=== PATIENT | male | born 1975 | race Hispanic/Latino ===

== ENCOUNTER 2017-02-01 16:31 | Inpatient (IN) | payer MEDICAID, OTHER ==
--- NOTE | 2017-02-01 17:00 | C.PDOC ---
History Of Present Illness 42 year old male presents to the ED with complaints of new onset bilateral leg swelling for one week. Patient notes scrotal swelling for two days and worsening dyspnea on exertion for six months. Patient denies pertinent past medical history, use of chronic medications, chest pain, fever, scrotal pain, or UTI symptoms. Time Seen by Provider: 02/01/17 16:50 Chief Complaint (Nursing): Lower Extremity Problem/Injury History Per: Patient History/Exam Limitations: no limitations Onset/Duration Of Symptoms: Days (1 week of leg swelling and 2 days of scrotal swelling ), Sudden Onset, Persistent (6 months of worsening dyspnea with exertion ) Current Symptoms Are (Timing): Still Present Recent travel outside of the [place]: No Past Medical History Reviewed: Historical Data, Nursing Documentation, Vital Signs Vital Signs: Last Vital Signs Temp 98.0 F 02/01/17 16:36 Pulse 101 H 02/01/17 17:03 Resp 24 02/01/17 17:03 BP 159/120 H 02/01/17 17:03 Pulse Ox 98 02/01/17 18:50 Surgical History: Appendectomy Family History: States: Unknown Family Hx - Social History Hx Alcohol Use: Yes Hx Substance Use: No - Immunization History Hx Tetanus Toxoid Vaccination: Yes Hx Influenza Vaccination: No Hx Pneumococcal Vaccination: No Review Of Systems Constitutional: Negative for: Fever, Chills Cardiovascular: Negative for: Chest Pain, Palpitations Respiratory: Positive for: Other (dyspnea with exertion ). Negative for: Cough , Shortness of Breath Genitourinary: Positive for: Other (scrotal swelling ). Negative for: Dysuria, Hematuria, Scrotal Pain Musculoskeletal: Positive for: Other (bilateral leg swelling ) Physical Exam - Physical Exam Appears: Non-toxic, No Acute Distress Skin: Warm, Dry, No Rash, Other (no cellulitis) Head: Atraumatic Eye(s): bilateral: Normal Inspection, EOMI Oral Mucosa: Moist Neck: Supple Chest: Symmetrical, No Deformity Cardiovascular: Other (Patient is tachycardic 121 bpm) Respiratory: Normal Breath Sounds, No Accessory Muscle Use (no retractions ), No Rales, No Wheezing, Other (Speaking in full sentences, no tachypnea) Gastrointestinal/Abdominal: Soft, No Tenderness, No Distention, No Guarding, No Rebound Male Genital: No Testicular Tenderness, No Inguinal Tenderness, Other (diffuse scrotal edema, no tenderness ) Extremity: No Tenderness, No Calf Tenderness, Other (2+ pitting edema to mid- legs bilaterally) ED Course And Treatment - Laboratory Results Result Diagrams: 02/01/17 17:07 02/01/17 17:07 ECG: Interpreted By Me, Viewed By Me ECG Rhythm: Sinus Tachycardia (121 bpm ) O2 Sat by Pulse Oximetry: 98 (room air ) - Radiology CXR: Interpreted by Me CXR Interpretation: Yes: Cardiomegaly - CT Scan/US Testicular US Other Rad Studies (CT/US): Read By Radiologist, Radiology Report Reviewed CT/US Interpretation: IMPRESSION: Scrotal skin thickening. The testes and epididymides have a normal ultrasound appearance. Progress Note: EKG, UA, testicular US, and labs were ordered. Patient was given catapres and Lasix. ED OBSERVATION Date of observation admission: 02/01/17 Time of observation admission: 17:00 - Observation admission statement Patient is being placed in observation because:: EDEMA, SCROTAL SWELL, SOB - Goals of Observation Goals of observation are:: NEG ACUTE FINDINGS, NEG ACUTE CHF - Progress Note Progress Note: 02/01/17 18:50 PERSIST HTN. +UO S/P LASIX. PT AGREES W ADMISSION FOR RENAL INSUFF, CHF NEW ONSET. 02/01/17 18:54 D/W DR NAVA WILL ADMIT Disposition Counseled Patient/Family Regarding: Studies Performed, Diagnosis - Disposition Disposition: HOSPITALIZED Disposition Time: 18:54 Condition: SERIOUS - POA Present On Arrival: None - Clinical Impression Clinical Impression: New onset of congestive heart failure, Edema, Renal insufficiency, Uncontrolled hypertension - Scribe Statement The provider has reviewed the documentation as recorded by the Scribbarry Monroy All medical record entries made by the Jamshidibbarry were at my direction and personally dictated by me. I have reviewed the chart and agree that the record accurately reflects my personal performance of the history, physical exam, medical decision making, and the department course for this patient. I have also personally directed, reviewed, and agree with the discharge instructions and disposition. Decision To Admit - Pt Status Changed To: Hospital Disposition Of: Inpatient - Admit Certification Admit to Inpatient:: After my assessment, the patient will require hospitalization for at least two midnights. This is because of the severity of symptoms shown, intensity of services needed, and/or the medical risk in this patient being treated as an outpatient. - InPatient: Physician Admission Certification: I certify that this patient requires 2 or more midnights of care for the following reason:: SEE NOTE - . Bed Request Type: Telemetry Admitting Physician: Derick Nava Patient Diagnosis: New onset of congestive heart failure, Edema, Renal insufficiency, Uncontrolled hypertension
[2017-02-01 17:11] LABS: BASO # 0.1 K/uL (0.0-0.2); BASO % 0.9 % (0.0-2.0); EOS # 0.1 K/uL (0.0-0.7); EOS % 1.7 % (0.0-4.0); HEMATOCRIT 44.3 % (35.0-51.0); LYMPH # 1.1 K/uL (1.0-4.3); LYMPH % 12.6 % (20.0-40.0); MEAN CELL VOLUME 79.3 fL (80.0-94.0); MEAN CORPUSCULAR HEMOGLOBIN 25.8 pg (27.0-31.0); MEAN CORPUSCULAR HGB CONC 32.5 g/dL (33.0-37.0); MEAN PLATELET VOLUME 7.6 fL (7.2-11.7); MONO % 10.7 % (0.0-10.0); RED CELL DISTRIBUTION WIDTH 15.7 % (11.5-14.5)
--- NOTE | 2017-02-01 17:11 | RAD ---
HISTORY: SOB COMPARISON: None available. TECHNIQUE: Chest, one view. FINDINGS: Examination limited by habitus and hypoinflation. The patient's chin obscures evaluation of the lung apices, particularly the right lung apex. LUNGS: No focal consolidation. Please note that chest x-ray has limited sensitivity for the detection of pulmonary masses. PLEURA: No significant pleural effusion identified. No definite pneumothorax . CARDIOVASCULAR: Cardiomegaly. OSSEOUS STRUCTURES: No acute osseous abnormality identified. VISUALIZED UPPER ABDOMEN: Unremarkable. OTHER FINDINGS: None. IMPRESSION: Cardiomegaly.
[2017-02-01 17:21] LABS: POTASSIUM 3.1 mmol/L (3.6-5.2)
[2017-02-01 17:23] LABS: ALB/GLOB RATIO 1.2 (1.0-2.1); CALCIUM 9.2 mg/dl (8.6-10.4); TOTAL PROTEIN 7.1 g/dL (6.3-8.3)
[2017-02-01] MEDS ORDERED: Potassium Chloride 20 mEq/15 ml LIQ UD PO STA (17:25)
[2017-02-01] MEDS ORDERED: Potassium Chloride 20 mEq ER Tab PO ONE ×3 (17:33→20:29)
[2017-02-01 17:34] LABS: TROPONIN I 0.069 ng/mL (0.00-0.120)
--- NOTE | 2017-02-01 18:29 | US ---
EXAM: US Scrotum EXAM DATE/TIME: Exam ordered 02/01/2017 5:02 PM CLINICAL HISTORY: 42 years old, male; Signs and symptoms; Swelling, testicles or scrotum; Additional info: Swelling RO torsion TECHNIQUE: Real-time ultrasound of the scrotum with color Doppler and image documentation. COMPARISON: No relevant prior studies available. FINDINGS: Right testicle: The right testicle measures 4.9 x 3.1 x 3.4 cm. Normal blood flow to the right testicle color Doppler examination. No torsion. Left testicle: The left testicle measures 5 x 3.1 x 3.5 cm. Blood flow to the left testicle is normal. No torsion. Epididymides: The right epididymal head measures 1.8 x 0.9 x 1.8 cm. The left epididymal head measures 1.6 x 1 x 1.5 cm. Scrotum: Minimal fluid is noted in the left or right hemiscrotum respectively. There is skin thickening noted bilaterally. IMPRESSION: Scrotal skin thickening. The testes and epididymides have a normal ultrasound appearance..
[2017-02-01 19:15] LABS: URINE BILIRUBIN NEGATIVE (NEGATIVE); URINE BLOOD NEGATIVE (NEGATIVE); URINE COLOR Straw (YELLOW); URINE GLUCOSE (UA) NORMAL (Normal); URINE KETONE NEGATIVE (NEGATIVE); URINE LEUKOCYTE ESTERASE NEG Leu/uL (Negative); URINE UROBILINOGEN NORMAL mg/dL (0.2-1.0); WBC URINE 1 /hpf (0-5)
[2017-02-01 19:20] LABS: URINE PROTEIN 30 mg/dL (NEGATIVE)
--- NOTE | 2017-02-01 19:28 | CP.PCM.HP ---
<Yuli Carvajal - Last Filed: 02/01/17 21:05> History of Present Illness - History of Present Illness History of Present Illness: Medicine Note For Dr. Degroot CC: Bilateral leg swelling, scrotum swelling HPI: 42M with no significant PMHx presents to the ED with bilateral leg swelling x1 week and scrotal swelling x 4 days. Patient reports he started to feel SOB when ambulating about 1 month ago. It was harder for him to walk up stairs, and he noticed at night, he needs 2-3 pillows to sleep. He noticed about a week ago, his legs started to swell up. He tried to keep his legs elevated, which helped a little bit, but once he ambulated, the swelling increased. Patient noticed while showering 4 days ago, that his scrotum started to swell. Denied any pain, discharge, or blood coming from his penis. Patient also reported that he noticed over the past couple of months, an increase in urination and thirst. Denied fever, chills, headache, chest pain, abdominal pain , n/v/d/c, or urinary symptoms. PMHx: Denied PSHx: Appendectomy Meds: Denied All: NKDA SHx: Denied tobacco or illicit drug use, social alcohol drinking FHx: Unremarkable PMD: Denied, last saw one 3 years ago for a physical for work Present on Admission - Present on Admission Any Indicators Present on Admission: No Past Patient History - Past Social History Smoking Status: Heavy Smoker > 10 Cigarettes Daily - PSYCHIATRIC Hx Substance Use: No - SURGICAL HISTORY Hx Appendectomy: Yes - ANESTHESIA Hx Anesthesia: Yes Hx Anesthesia Reactions: No Meds Allergies/Adverse Reactions: Allergies Allergy/AdvReac Type Severity Reaction Status Date / Time No Known Allergies Allergy Verified 02/01/17 16:39 Physical Exam - Constitutional Appears: No Acute Distress - Head Exam Head Exam: NORMAL INSPECTION, NORMOCEPHALIC - Eye Exam Eye Exam: EOMI, Normal appearance, PERRL Pupil Exam: NORMAL ACCOMODATION - ENT Exam ENT Exam: Mucous Membranes Moist, Normal Exam - Neck Exam Additional comments: JVD - Respiratory Exam Respiratory Exam: Rales, NORMAL BREATHING PATTERN - Cardiovascular Exam Cardiovascular Exam: Tachycardia - GI/Abdominal Exam GI & Abdominal Exam: Normal Bowel Sounds, Soft. absent: Tenderness - Rectal Exam Rectal Exam: Deferred - Extremities Exam Extremities exam: Positive for: pedal edema, tenderness, pedal pulses present Additional comments: BL LE swelling +3 - Back Exam Back exam: NORMAL INSPECTION - Neurological Exam Neurological exam: Alert, Oriented x3 - Psychiatric Exam Psychiatric exam: Normal Affect, Normal Mood - Skin Skin Exam: Dry, Intact, Normal Color, Warm Results - Vital Signs Recent Vital Signs: Last Vital Signs Temp 98.0 F 02/01/17 16:36 Pulse 101 H 02/01/17 17:03 Resp 24 02/01/17 17:03 BP 159/120 H 02/01/17 17:03 Pulse Ox 98 02/01/17 18:55 - Labs Result Diagrams: 02/01/17 17:07 02/01/17 17:07 Labs: Laboratory Results - last 24 hr 02/01/17 19:10 Urine Color Straw Urine Clarity Clear Urine pH 7.0 Ur Specific [place] 1.005 Urine Protein 30 Urine Glucose (UA) Normal Urine Ketones Negative Urine Blood Negative Urine Nitrate Negative Urine Bilirubin Negative Urine Urobilinogen Normal Ur Leukocyte Esterase Neg Urine WBC (Auto) 1 Ur Squamous Epith Cells < 1 Assessment & Plan - Assessment and Plan (Free Text) Plan: New Onset CHF * Tachycardia, hypertensive * JVD, No S3 appreciated, Rales, BL LE edema +3 on exam * BNP:11,700 * Monitor daily weights, intake and outtake * Heart Healthy Diet - with 2g Na and fluid restriction * Cardiology consulted- Dr. Dewitt- help appreciated * Started Lasix 40mg IVP Q8H, lisinopril 10mg PO daily * F/U ECHO HTN * Lisinopril 10mg PO daily * F/U labs ordered Bilateral Lower Extremity Edema * Most likely 2/2 CHF * Venous dopplers to rule out DVT Renal Insufficiency * BUN/CRE: 25/1.9 * GFR: 39 * Continue to monitor Hypokalemia * Repleted * Continue to monitor Testicular Swelling * Testicular US:Scrotal skin thickening. The testes and epididymides have a normal ultrasound appearance. Prophylactic Measures * GI PPX: Pepcid 20mg PO daily * DVT PPX: SCDs c/i due to edema, Heparin [id number] * PT/OT DW Alena Jessica DO, PGY-1 <Jono Degroot - Last Filed: 02/02/17 06:33> Results - Vital Signs Recent Vital Signs: Last Vital Signs Temp 97.4 F L 02/02/17 05:05 Pulse 98 H 02/02/17 05:11 Resp 20 02/02/17 05:05 BP 171/131 H 02/02/17 05:11 Pulse Ox 98 02/02/17 05:05 - Labs Result Diagrams: 02/01/17 17:07 02/01/17 17:07 Labs: Laboratory Results - last 24 hr 02/01/17 02/01/17 19:10 22:36 Urine Color Straw Urine Clarity Clear Urine pH 7.0 Ur Specific [place] 1.005 Urine Protein 30 Urine Glucose (UA) Normal Urine Ketones Negative Urine Blood Negative Urine Nitrate Negative Urine Bilirubin Negative Urine Urobilinogen Normal Ur Leukocyte Esterase Neg Urine WBC (Auto) 1 Ur Squamous Epith Cells < 1 Urine Opiates Screen Negative Urine Methadone Screen Negative Ur Barbiturates Screen Negative Ur Phencyclidine Scrn Negative Ur Amphetamines Screen Negative U Benzodiazepines Scrn Negative U Oth Cocaine Metabols Negative U Cannabinoids Screen Negative Assessment & Plan - Date & Time Date: 02/02/17 (I have seen and examined the patient. I agree with the findings and plan of care as documented by Dr. Carvajal. Patient with acute CHF. New Onset. Lasix IV. Start Madhu. Consult to Cardio. ROMIx3 with EKG. Aspirin and Statin. Also with history of hypertension. Continue home meds. Start Madhu. For renal insufficiency, continue to monitor renal function. May worsen due to Lasix. Monitor for acute changes.) Time: 06:31 Attending/Attestation - Attestation I have personally seen and examined this patient.: Yes I have fully participated in the care of the patient.: Yes I have reviewed all pertinent clinical information: Yes
[2017-02-02 01:16] VITALS: RESP 20
[2017-02-02 09:02] LABS: BASO # 0.1 K/uL (0.0-0.2); BASO % 0.8 % (0.0-2.0); EOS # 0.2 K/uL (0.0-0.7); EOS % 2.8 % (0.0-4.0); HEMATOCRIT 42.4 % (35.0-51.0); LYMPH # 1.1 K/uL (1.0-4.3); LYMPH % 15.9 % (20.0-40.0); MEAN CELL VOLUME 79.7 fL (80.0-94.0); MEAN CORPUSCULAR HEMOGLOBIN 25.5 pg (27.0-31.0); MEAN PLATELET VOLUME 7.9 fL (7.2-11.7); MONO # 0.6 K/uL (0.0-0.8); MONO % 8.7 % (0.0-10.0); RED CELL DISTRIBUTION WIDTH 15.6 % (11.5-14.5); WHITE BLOOD COUNT 7.2 K/uL (4.8-10.8)
[2017-02-02 09:41] LABS: ALB/GLOB RATIO 1.3 (1.0-2.1); ALKALINE PHOSPHATASE 99 U/L (38-126); ALT/SGPT 31 U/L (21-72); AST/SGOT 37 U/L (17-59); BLOOD UREA NITROGEN 19 mg/dL (9-20); CALCIUM 8.7 mg/dl (8.6-10.4); CARBON DIOXIDE 30 mmol/L (22-30); CHLORIDE 101 mmol/L (98-107); CHOLESTEROL 144 mg/dL (0-199); GFR AFRICAN-AMERICAN > 60; GLUCOSE,RANDOM 86 mg/dL (75-110); MAGNESIUM 1.7 mg/dL (1.6-2.3); PHOSPHOROUS 2.7 mg/dL (2.5-4.5); SODIUM 141 mmol/L (132-148)
[2017-02-02] MEDS ORDERED: Potassium Chloride 20 mEq ER Tab PO SCH ×2 (10:00)
[2017-02-02] MEDS ORDERED: Metoprolol Succinate 25 mg XL Tab PO SCH (10:00)
[2017-02-02] MEDS ORDERED: Potassium Chloride 20 mEq ER Tab PO ONE ×2 (10:45→11:00)
--- NOTE | 2017-02-02 10:45 | CP.PCM.PN ---
<Derick Nava M - Last Filed: 02/02/17 17:00> Objective - Vital Signs/Intake and Output Vital Signs (last 24 hours): Temp Pulse Resp BP Pulse Ox 98 F 87 20 149/112 H 97 02/02/17 08:20 02/02/17 16:00 02/02/17 08:20 02/02/17 12:07 02/02/17 08:20 Intake and Output: 02/02/17 02/02/17 06:59 18:59 Intake Total 120 Output Total 3150 Balance -3030 - Medications Medications: Current Medications Famotidine (Pepcid) 20 mg PO DAILY [facility] Last Admin: 02/02/17 11:01 Dose: 20 mg Furosemide (Lasix) 40 mg IVP BID [facility] Last Admin: 02/02/17 10:52 Dose: Not Given Heparin Sodium (Porcine) (Heparin) 5,000 units SC Q12 [facility] Last Admin: 02/02/17 11:01 Dose: 5,000 units Hydralazine HCl (Apresoline) 10 mg IVP Q6H PRN PRN Reason: Systolic Blood Pressure Lisinopril (Zestril) 20 mg PO DAILY [facility] Last Admin: 02/02/17 11:01 Dose: 20 mg Pneumococcal Polyvalent Vaccine (Pneumovax 23 Vaccine) 0.5 ml IM .ONCE ONE Stop: 02/04/17 14:01 - Labs Labs: 02/02/17 08:32 02/02/17 08:32 Attending/Attestation - Attestation I have personally seen and examined this patient.: Yes I have fully participated in the care of the patient.: Yes I have reviewed all pertinent clinical information, including history, physical exam and plan: Yes Notes (Text): 02/02/17 17:02 Patient was seen and examined at bedside with the resident Patient to denies any shortness of breath this time Continue diuresis Follow-up echocardiogram report Follow up cardiology recommendations Replace electrolytes and check again in the morning I discussed the plan of care with the resident and agree with the assessment plan documented. <Jarad Pimentel - Last Filed: 02/02/17 22:12> Subjective - Date & Time of Evaluation Date of Evaluation: 02/02/17 Time of Evaluation: 10:00 - Subjective Subjective: Dr. Nava, service: Patient seen and examined in room. He says he came to the hospital because he was having worsening shortness of breath and his legs and abdomen were swelling. He does not see a doctor regularly and is a daily smoker. He takes no medication at home either. Objective - Vital Signs/Intake and Output Vital Signs (last 24 hours): Temp Pulse Resp BP Pulse Ox 98 F 88 20 177/133 H 97 02/02/17 08:20 02/02/17 08:20 02/02/17 08:20 02/02/17 08:33 02/02/17 08:20 Intake and Output: 02/02/17 02/02/17 06:59 18:59 Intake Total 120 Output Total 3150 Balance -3030 - Medications Medications: Current Medications Famotidine (Pepcid) 20 mg PO DAILY [facility] Furosemide (Lasix) 40 mg IVP BID [facility] Heparin Sodium (Porcine) (Heparin) 5,000 units SC Q12 [facility] Last Admin: 02/01/17 22:28 Dose: 5,000 units Hydralazine HCl (Apresoline) 10 mg IVP ONCE ONE Stop: 02/02/17 10:46 Hydralazine HCl (Apresoline) 10 mg IVP Q6H PRN PRN Reason: Systolic Blood Pressure Lisinopril (Zestril) 20 mg PO DAILY [facility] Pneumococcal Polyvalent Vaccine (Pneumovax 23 Vaccine) 0.5 ml IM .ONCE ONE Stop: 02/04/17 14:01 Potassium Chloride (K-Dur 20 Meq Er Tab) 40 meq PO ONCE ONE Stop: 02/02/17 11:01 - Labs Labs: 02/02/17 08:32 02/02/17 08:32 - Constitutional Appears: Non-toxic, No Acute Distress - Eye Exam Eye Exam: Normal appearance, PERRL - ENT Exam ENT Exam: Mucous Membranes Moist - Respiratory Exam Respiratory Exam: Clear to Ausculation Bilateral. absent: Rhonchi, Wheezes - Cardiovascular Exam Cardiovascular Exam: REGULAR RHYTHM, RRR, +S1, +S2. absent: Gallop, Rubs - GI/Abdominal Exam GI & Abdominal Exam: Distended, Normal Bowel Sounds. absent: Guarding, Soft, Tenderness, Rebound - Extremities Exam Extremities Exam: Pedal Edema. absent: Normal Inspection - Neurological Exam Neurological Exam: Alert - Psychiatric Exam Psychiatric exam: Normal Affect, Normal Mood - Skin Skin Exam: Normal Color. absent: Pallor Assessment and Plan - Assessment and Plan (Free Text) Assessment: New Onset CHF * 02/02: Echo still pending, continue Lasix, daily I&Os and daily weight measurement, IV Lasix 40mg bid. * * Tachycardia, hypertensive * JVD, No S3 appreciated, Rales, BL LE edema +3 on exam * BNP:11,700 * Monitor daily weights, intake and outtake * Heart Healthy Diet - with 2g Na and fluid restriction * Cardiology consulted- Dr. Dewitt- help appreciated * Started Lasix 40mg IVP Q8H, lisinopril 10mg PO daily * F/U ECHO HTN * Increased to 20mg of Zestril, added Hydralazine 10mg IV prn, patient was given 10mg of Hydralazine IVP today. * Lisinopril 10mg PO daily * F/U labs ordered Bilateral Lower Extremity Edema * 02/02: Doppler pending * Most likely 2/2 CHF * Venous dopplers to rule out DVT Renal Insufficiency * 02/02: Creatine 1.5 today. * BUN/CRE: 25/1.9 * GFR: 39 * Continue to monitor Hypokalemia * 02/02: Potassium replaced. * * Repleted * Continue to monitor Testicular Swelling * Testicular US:Scrotal skin thickening. The testes and epididymides have a normal ultrasound appearance. Prophylactic Measures * GI PPX: Pepcid 20mg PO daily * DVT PPX: SCDs c/i due to edema, Heparin [id number] * PT/OT
[2017-02-03 07:39] LABS: BASO # 0.1 K/uL (0.0-0.2); EOS # 0.2 K/uL (0.0-0.7); EOS % 2.1 % (0.0-4.0); HEMATOCRIT 43.6 % (35.0-51.0); LYMPH % 12.3 % (20.0-40.0); MEAN CELL VOLUME 79.7 fL (80.0-94.0); MEAN CORPUSCULAR HEMOGLOBIN 25.2 pg (27.0-31.0); MEAN CORPUSCULAR HGB CONC 31.6 g/dL (33.0-37.0); MEAN PLATELET VOLUME 7.6 fL (7.2-11.7); MONO # 0.7 K/uL (0.0-0.8); MONO % 9.2 % (0.0-10.0); RED CELL DISTRIBUTION WIDTH 15.3 % (11.5-14.5)
[2017-02-03 08:17] LABS: CHLORIDE 100 mmol/L (98-107); POTASSIUM 3.2 mmol/L (3.6-5.2); SODIUM 138 mmol/L (132-148)
[2017-02-03 08:19] LABS: ALB/GLOB RATIO 1.1 (1.0-2.1); ALKALINE PHOSPHATASE 100 U/L (38-126); AST/SGOT 25 U/L (17-59); BLOOD UREA NITROGEN 20 mg/dL (9-20); CARBON DIOXIDE 30 mmol/L (22-30); GFR AFRICAN-AMERICAN > 60; GLUCOSE,RANDOM 97 mg/dL (75-110); TOTAL PROTEIN 6.1 g/dL (6.3-8.3)
[2017-02-03 08:20] LABS: ALT/SGPT 37 U/L (21-72); CALCIUM 8.6 mg/dl (8.6-10.4); MAGNESIUM 1.5 mg/dL (1.6-2.3); PHOSPHOROUS 2.7 mg/dL (2.5-4.5)
[2017-02-03] MEDS: Magnesium Sulfate 1 gm in D5W 1 GM/100 ML BAG IVPB SCH ×2 (10:00→12:23)
[2017-02-03] MEDS ORDERED: Potassium Chloride 20 mEq ER Tab PO ONE (10:00)
--- NOTE | 2017-02-03 13:52 | CP.PCM.PN ---
<Yuli Carvajal - Last Filed: 02/03/17 14:29> Subjective - Date & Time of Evaluation Date of Evaluation: 02/03/17 Time of Evaluation: 07:00 - Subjective Subjective: Medicine Note for Dr. Quesada Patient was seen and examined at bedside. Patient reports his breathing has improved. His bilateral leg and scrotal swelling has significantly reduced since day of admission. Denied fever, chills, headache, chest pain, abdominal pain, n/v/d/c, or urinary symptoms. Objective - Vital Signs/Intake and Output Vital Signs (last 24 hours): Temp Pulse Resp BP Pulse Ox 98.5 F 99 H 20 148/93 H 98 02/03/17 08:28 02/03/17 09:44 02/03/17 08:28 02/03/17 10:02 02/03/17 08:28 Intake and Output: 02/03/17 02/03/17 06:59 18:59 Intake Total 500 Balance 500 - Medications Medications: Current Medications Carvedilol (Coreg) 3.125 mg PO BID [facility] Famotidine (Pepcid) 20 mg PO DAILY [facility] Last Admin: 02/03/17 10:01 Dose: 20 mg Furosemide (Lasix) 40 mg IVP BID [facility] Last Admin: 02/03/17 10:02 Dose: 40 mg Heparin Sodium (Porcine) (Heparin) 5,000 units SC Q12 [facility] Last Admin: 02/03/17 10:02 Dose: 5,000 units Hydralazine HCl (Apresoline) 10 mg IVP Q6H PRN PRN Reason: Systolic Blood Pressure Last Admin: 02/02/17 21:48 Dose: 10 mg Lisinopril (Zestril) 20 mg PO DAILY [facility] Last Admin: 02/03/17 10:01 Dose: 20 mg Pneumococcal Polyvalent Vaccine (Pneumovax 23 Vaccine) 0.5 ml IM .ONCE ONE Stop: 02/04/17 14:01 - Labs Labs: 02/03/17 07:20 02/03/17 07:20 - Constitutional Appears: No Acute Distress - Head Exam Head Exam: NORMAL INSPECTION, NORMOCEPHALIC - Eye Exam Eye Exam: EOMI, Normal appearance, PERRL Pupil Exam: NORMAL ACCOMODATION - ENT Exam ENT Exam: Mucous Membranes Moist - Respiratory Exam Respiratory Exam: Clear to Ausculation Bilateral, NORMAL BREATHING PATTERN. absent: Decreased Breath Sounds, Rales, Wheezes - Cardiovascular Exam Cardiovascular Exam: REGULAR RHYTHM, RRR, +S1, +S2 - GI/Abdominal Exam GI & Abdominal Exam: Soft, Normal Bowel Sounds. absent: Distended, Tenderness - Extremities Exam Extremities Exam: Normal Inspection, Pedal Edema. absent: Tenderness Additional comments: +2 - Neurological Exam Neurological Exam: Alert, Awake, Oriented x3 - Skin Skin Exam: Dry, Intact, Normal Color, Warm Assessment and Plan - Assessment and Plan (Free Text) Plan: New Onset CHF * Tachycardia, hypertensive * JVD, No S3 appreciated, Rales, BL LE edema +3 on exam * BNP:11,700 * Monitor daily weights, intake and outtake * Heart Healthy Diet - with 2g Na and fluid restriction * Cardiology consulted- Dr. Dewitt- help appreciated * Lasix 40mg IVP Q12H, will start lasix 40mg IVP daily on 02/04/17 * F/U ECHO HTN * Lisinopril 20mg PO daily, Coreg 3.125mg PO BID, Hydralazine 10mg IV prn with parameters * Lipid panel -WNL Tachycardia * Elevated d-dimer 1508 * F/U CTA - rule out PE Bilateral Lower Extremity Edema * Most likely 2/2 CHF * Venous dopplers to rule out DVT- negative Electrolyte Imbalances * Potassium and Magnesium 2/2 lasix * Repleted * Continue to monitor Testicular Swelling * Testicular US:Scrotal skin thickening. The testes and epididymides have a normal ultrasound appearance. Renal Insufficiency -RESOLVED * BUN/CRE: 25/1.9, GFR: 39 on admission Prophylactic Measures * GI PPX: Pepcid 20mg PO daily * DVT PPX: SCDs c/i due to edema, Heparin [id number] * PT/OT DW Alena Irvin DO, PGY-1 <López Quesada - Last Filed: 02/03/17 15:52> Objective - Vital Signs/Intake and Output Vital Signs (last 24 hours): Temp Pulse Resp BP Pulse Ox 98.2 F 84 20 118/83 96 02/03/17 13:00 02/03/17 13:00 02/03/17 13:00 02/03/17 13:00 02/03/17 13:00 Intake and Output: 02/03/17 02/03/17 06:59 18:59 Intake Total 500 500 Balance 500 500 - Medications Medications: Current Medications Carvedilol (Coreg) 3.125 mg PO BID [facility] Famotidine (Pepcid) 20 mg PO DAILY [facility] Last Admin: 02/03/17 10:01 Dose: 20 mg Furosemide (Lasix) 40 mg IVP DAILY [facility] Heparin Sodium (Porcine) (Heparin) 5,000 units SC Q12 [facility] Last Admin: 02/03/17 10:02 Dose: 5,000 units Hydralazine HCl (Apresoline) 10 mg IVP Q6H PRN PRN Reason: Systolic Blood Pressure Last Admin: 02/02/17 21:48 Dose: 10 mg Lisinopril (Zestril) 20 mg PO DAILY [facility] Last Admin: 02/03/17 10:01 Dose: 20 mg Pneumococcal Polyvalent Vaccine (Pneumovax 23 Vaccine) 0.5 ml IM .ONCE ONE Stop: 02/04/17 14:01 - Labs Labs: 02/03/17 07:20 02/03/17 07:20 Attending/Attestation - Attestation I have personally seen and examined this patient.: Yes I have fully participated in the care of the patient.: Yes I have reviewed all pertinent clinical information, including history, physical exam and plan: Yes Notes (Text): 02/03/17 15:46 Medical attending: Patient was seen and examined by me, agree with the above note by medical detailist. This is my first time meeting the patient, so I have to review the previous notes and attempts, as well as discussed with the patient, the medical detailist , as well as staff. For the past several days the patient has had a lot of IV Lasix being administered the patient reports that he feels much better after urinating a lot with the help of the Lasix. He reports that the swelling that is in his lower extremities as well as testicular area have decreased substantially as well Furthermore on exam we also had him walk with us into the hallway and he is able to walk all the way up to the nurses station and we looked at his telemetry reading and it appeared okay at that time. He denied having any chest pain or shortness of breath. When we saw him in the morning the echo had not yet been read officially, since then has been told that the echo does have a relatively low ejection fraction of 25%. Her have to recheck to cardiology for further advice as the patient may or may not need a device. In the meantime we did place the patient on small dose of beta jordon, were continuing and HERMINIA inhibitor, he is on Lasix, and we will be adding Aldactone as well Thank you very much, López Quesada
--- NOTE | 2017-02-03 14:46 | CARD ---
APPROVED REPORT EXAM: Two-dimensional and M-mode echocardiogram with Doppler and color Doppler. Other Information Quality : GoodRhythm : INDICATION Congestive Heart Failure RISK FACTORS Smoking 2D DIMENSIONS IVSd1.3 (0.7-1.1cm)LVDd6.8 (3.9-5.9cm) PWd1.5 (0.7-1.1cm)LVDs6.0 (2.5-4.0cm) FS (%) 11.5 %LVEF (%)24.3 (>50%) M-Mode DIMENSIONS Left Atrium (MM)4.85 (2.5-4.0cm)Aortic Root3.66 (2.2-3.7cm) Aortic Cusp Exc.2.12 (1.5-2.0cm) Mitral Valve MV A Flcqonjz702.0cm/sE/A ratio0.0 TDI E/Lateral E'0.0E/Medial E'0.0 Tricuspid Valve TR Peak [id number]/sTR Peak Gr.[id number] LEFT VENTRICLE The Left Ventricle is mildly to moderately dilated. There is mild to moderate concentric left ventricular hypertrophy. The systolic function is severely impaired. The Ejection Fraction is 25-30%. There is global hypokinesis of the left ventricle. Transmitral Doppler flow pattern is Grade III restrictive diastolic dysfunction. RIGHT VENTRICLE The right ventricle is mildly dilated. Systolic function is mildly reduced. ATRIA The left atrium is moderately dilated. The right atrium is moderately dilated. AORTIC VALVE The aortic valve is normal in structure. No aortic regurgitation is present. MITRAL VALVE The mitral valve is normal in structure. Mitral regurgitation is trace. TRICUSPID VALVE The tricuspid valve is normal in structure. There is moderate tricuspid regurgitation. Right ventricular systolic pressure is estimated at 40-50 mmHg. There is moderate pulmonary hypertension. PULMONIC VALVE The pulmonary valve is normal in structure. GREAT VESSELS The aortic root is normal in size. Dilated IVC with poor inspiration collapse is consistent with elevated right atrial pressure. PERICARDIAL EFFUSION There is a trace pericardial effusion. <Conclusion> There is mild to moderate concentric left ventricular hypertrophy. There is global hypokinesis of the left ventricle. The systolic function is severely impaired. The Ejection Fraction is 25-30%. Severe diastolic dysfunction. Transmitral Doppler flow pattern is Grade III restrictive diastolic dysfunction. The right ventricle is mildly dilated withthe systolic function mildly to reduced. Moderate bi-atrial enlargement. Right ventricular systolic pressure is estimated at 40-50 mmHg compatible with moderate pulmonary hypertension. There is a trace pericardial effusion.
[2017-02-03] MEDS ORDERED: Iodixanol 320 MG/ML 100 ML BOTTLE IV ONE (15:57)
--- NOTE | 2017-02-03 17:01 | CT ---
CTA chest PE protocol Indication: elevated d-dimer, tachycardia, r/o PE Technique: Contiguous axial images were obtained through the chest with intravenous contrast enhancement. Sagittal and coronal reconstructions were generated and reviewed. This CT exam was performed using 1 or more of the falling dose reduction techniques: Automated exposure control, adjustment of the MAA and/or kV according to patient size, and/or use of iterative reconstruction technique. IV Contrast: 100cc Visipaque Radiation dose (DLP): 541.83 MGy-cm. Comparison: Chest xray performed 02/01/17. Findings: Examination limited by habitus. Visualized portions of the inferior thyroid gland appear unremarkable. The mediastinal and hilar vascular structures appear within normal limits. Cardiomegaly. Small pericardial effusion. Subcentimeter mediastinal lymph nodes, nonspecific. No large central or segmental pulmonary embolus evident. No focal consolidation. No pleural effusion. No pneumothorax. No suspicious pulmonary nodules measuring greater than 5 mm. Limited visualized portions of the upper abdomen appear grossly unremarkable. Mild bilateral gynecomastia. Degenerative changes. Impression: No large central or segmental pulmonary embolus identified. Cardiomegaly. Small pericardial effusion.
--- NOTE | 2017-02-03 17:48 | CP.PCM.CON ---
History of Present Illness - History of Present Illness History of Present Illness: consultation for evaluation of new onset CHF HPI : 42-year-old male with no significant past medical history complaining with complains of bilateral lower extremity swelling accompanied with scrotal swelling ongoing for a week prior to presentation according to the patient he has been experiencing dyspnea and was not dyspnea on exertion worsening over the course of last 4-5 months. He denies having any past medical history denies any chest pain shortness of breath fever or UTI symptoms. Today he underwent echocardiogram showing ejection fraction of 25%. Occasional alcohol use half a pack per day for the last 15 years. No family history of premature CAD. Review of Systems - Review of Systems All systems: reviewed and no additional remarkable complaints except - Constitutional Constitutional: As Per HPI - EENT Eyes: As Per HPI Ears: As Per HPI Nose/Mouth/Throat: As Per HPI - Cardiovascular Cardiovascular: As Per HPI, Dyspnea on Exertion, Edema - Respiratory Respiratory: As Per HPI - Gastrointestinal Gastrointestinal: As Per HPI - Genitourinary Genitourinary: As Per HPI - Reproductive: Male Reproductive:Male: As Per HPI - Musculoskeletal Musculoskeletal: As Per HPI - Integumentary Integumentary: As Per HPI - Neurological Neurological: As Per HPI - Psychiatric Psychiatric: As Per HPI - Endocrine Endocrine: As Per HPI Past Patient History - Past Medical History & Family History Past Medical History?: No Pertinent Family History: +Ve HTN - Past Social History Smoking Status: Heavy Smoker > 10 Cigarettes Daily - MUSCULOSKELETAL/RHEUMATOLOGICAL Hx Falls: No - PSYCHIATRIC Hx Substance Use: No - SURGICAL HISTORY Hx Surgeries: Yes Hx Appendectomy: Yes - ANESTHESIA Hx Anesthesia: Yes Hx Anesthesia Reactions: No Meds Allergies/Adverse Reactions: Allergies Allergy/AdvReac Type Severity Reaction Status Date / Time No Known Allergies Allergy Verified 02/01/17 16:39 - Medications Medications: Current Medications Carvedilol (Coreg) 3.125 mg PO BID [facility] Famotidine (Pepcid) 20 mg PO DAILY [facility] Last Admin: 02/03/17 10:01 Dose: 20 mg Furosemide (Lasix) 40 mg IVP DAILY [facility] Heparin Sodium (Porcine) (Heparin) 5,000 units SC Q12 [facility] Last Admin: 02/03/17 10:02 Dose: 5,000 units Hydralazine HCl (Apresoline) 10 mg IVP Q6H PRN PRN Reason: Systolic Blood Pressure Last Admin: 02/03/17 16:42 Dose: 10 mg Lisinopril (Zestril) 20 mg PO DAILY [facility] Last Admin: 02/03/17 10:01 Dose: 20 mg Pneumococcal Polyvalent Vaccine (Pneumovax 23 Vaccine) 0.5 ml IM .ONCE ONE Stop: 02/04/17 14:01 Spironolactone (Aldactone) 50 mg PO DAILY [facility] Physical Exam - Constitutional Appears: Well - Head Exam Head Exam: ATRAUMATIC, NORMAL INSPECTION, NORMOCEPHALIC - Eye Exam Eye Exam: EOMI, Normal appearance, PERRL Pupil Exam: NORMAL ACCOMODATION, PERRL - ENT Exam ENT Exam: Mucous Membranes Moist, Normal Exam - Neck Exam Neck exam: Positive for: Normal Inspection - Respiratory Exam Respiratory Exam: Clear to Auscultation Bilateral, NORMAL BREATHING PATTERN - Cardiovascular Exam Cardiovascular Exam: REGULAR RHYTHM, +S1, +S2, Systolic Murmur - GI/Abdominal Exam GI & Abdominal Exam: Normal Bowel Sounds, Soft. absent: Tenderness - Extremities Exam Extremities exam: Positive for: normal inspection, pedal edema - Back Exam Back exam: NORMAL INSPECTION - Neurological Exam Neurological exam: Alert, CN II-XII Intact, Oriented x3, Reflexes Normal - Psychiatric Exam Psychiatric exam: Normal Affect, Normal Mood - Skin Skin Exam: Dry, Intact, Normal Color, Warm Results - Vital Signs Recent Vital Signs: Last Vital Signs Temp 98.0 F 02/03/17 15:45 Pulse 98 H 02/03/17 15:45 Resp 20 02/03/17 15:45 BP 150/112 H 02/03/17 15:45 Pulse Ox 97 02/03/17 15:45 - Labs Result Diagrams: 02/03/17 07:20 02/03/17 07:20 Labs: Laboratory Results - last 24 hr 02/03/17 02/03/17 02/03/17 07:20 07:20 11:29 WBC 8.0 RBC 5.47 Hgb 13.8 Hct 43.6 MCV 79.7 L MCH 25.2 L MCHC 31.6 L RDW 15.3 H Plt Count 246 MPV 7.6 Neut % (Auto) 75.4 H Lymph % (Auto) 12.3 L Dickson % (Auto) 9.2 Eos % (Auto) 2.1 Baso % (Auto) 1.0 Neut # 6.0 Lymph # 1.0 Dickson # 0.7 Eos # 0.2 Baso # 0.1 D-Dimer, Quantitative 1508 H Sodium 138 Potassium 3.2 L Chloride 100 Carbon Dioxide 30 Anion Gap 11 BUN 20 Creatinine 1.5 Est GFR ( Amer) > 60 Est GFR (Non-Af Amer) 52 Random Glucose 97 Calcium 8.6 Phosphorus 2.7 Magnesium 1.5 L Total Bilirubin 1.0 AST 25 ALT 37 Alkaline Phosphatase 100 Total Protein 6.1 L Albumin 3.2 L Globulin 2.9 Albumin/Globulin Ratio 1.1 Assessment & Plan (1) Edema Assessment and Plan: 2' to activated RAAS continue with lasix 40mg IV q12 hours Status: Acute (2) New onset of congestive heart failure Assessment and Plan: Echo shows EF of 25% will need ischemic w/u with cardiac cath BB and RAAS modulators cont with coreg, lisinopril , aldactone , lasix and hydralazine Status: Acute (3) Renal insufficiency Assessment and Plan: Cr 1.5 stable Status: Acute (4) Uncontrolled hypertension Assessment and Plan: BP improving Status: Acute
[2017-02-04 03:57] VITALS: BP 150/99; PULSE 94; TEMP 98.2; O2SAT 98
[2017-02-04 06:58] LABS: BASO # 0.1 K/uL (0.0-0.2); BASO % 0.9 % (0.0-2.0); EOS # 0.2 K/uL (0.0-0.7); EOS % 2.9 % (0.0-4.0); HEMATOCRIT 43.6 % (35.0-51.0); LYMPH # 1.1 K/uL (1.0-4.3); LYMPH % 13.6 % (20.0-40.0); MEAN CELL VOLUME 78.9 fL (80.0-94.0); MEAN CORPUSCULAR HEMOGLOBIN 26.1 pg (27.0-31.0); MEAN CORPUSCULAR HGB CONC 33.1 g/dL (33.0-37.0); MEAN PLATELET VOLUME 7.5 fL (7.2-11.7); MONO # 0.6 K/uL (0.0-0.8); RED CELL DISTRIBUTION WIDTH 15.4 % (11.5-14.5); WHITE BLOOD COUNT 7.9 K/uL (4.8-10.8)
--- NOTE | 2017-02-04 07:01 | CP.PCM.PN ---
Subjective - Date & Time of Evaluation Date of Evaluation: 02/04/17 Time of Evaluation: 07:00 - Subjective Subjective: Medicine Note for Dr. Quesada Patient was seen and examined at bedside. Denied fever, chills, headache, chest pain, abdominal pain, n/v/d/c, or urinary symptoms. Objective - Vital Signs/Intake and Output Vital Signs (last 24 hours): Temp Pulse Resp BP Pulse Ox 98.2 F 94 H 20 150/99 H 98 02/04/17 03:53 02/04/17 03:53 02/04/17 03:53 02/04/17 03:53 02/04/17 03:53 Intake and Output: 02/03/17 02/04/17 18:59 06:59 Intake Total 500 500 Output Total 700 Balance 500 -200 - Medications Medications: Current Medications Carvedilol (Coreg) 3.125 mg PO BID [facility] Last Admin: 02/03/17 21:32 Dose: 3.125 mg Famotidine (Pepcid) 20 mg PO DAILY [facility] Last Admin: 02/03/17 10:01 Dose: 20 mg Furosemide (Lasix) 40 mg IVP DAILY [facility] Heparin Sodium (Porcine) (Heparin) 5,000 units SC Q12 [facility] Last Admin: 02/03/17 21:33 Dose: 5,000 units Hydralazine HCl (Apresoline) 10 mg IVP Q6H PRN PRN Reason: Systolic Blood Pressure Last Admin: 02/03/17 16:42 Dose: 10 mg Lisinopril (Zestril) 20 mg PO DAILY [facility] Last Admin: 02/03/17 10:01 Dose: 20 mg Pneumococcal Polyvalent Vaccine (Pneumovax 23 Vaccine) 0.5 ml IM .ONCE ONE Stop: 02/04/17 14:01 Spironolactone (Aldactone) 50 mg PO DAILY [facility] - Labs Labs: 02/03/17 07:20 02/03/17 07:20 - Constitutional Appears: No Acute Distress - Head Exam Head Exam: NORMAL INSPECTION, NORMOCEPHALIC - Eye Exam Eye Exam: EOMI, Normal appearance, PERRL Pupil Exam: NORMAL ACCOMODATION - ENT Exam ENT Exam: Mucous Membranes Moist - Respiratory Exam Respiratory Exam: Clear to Ausculation Bilateral, NORMAL BREATHING PATTERN - Cardiovascular Exam Cardiovascular Exam: REGULAR RHYTHM - GI/Abdominal Exam GI & Abdominal Exam: Soft, Normal Bowel Sounds. absent: Distended, Tenderness - Exam Exam: Scrotal Swelling (less than prior exam on admission ) - Neurological Exam Neurological Exam: Alert, Awake, Oriented x3 - Skin Skin Exam: Dry, Intact, Normal Color, Warm Assessment and Plan - Assessment and Plan (Free Text) Plan: New Onset CHF * Tachycardia, hypertensive * JVD, No S3 appreciated, Rales, BL LE edema +3 on exam * BNP:11,700 * Monitor daily weights, intake and outtake * Heart Healthy Diet - with 2g Na and fluid restriction * Lasix 40mg IVP Q12H, will start lasix 40mg IVP daily on 02/04/17 * Cardiology consulted- Dr. Dewitt- help appreciated - patient started on aldactone 50mg PO daily * ECHO: ejection fraction of 25% with severe LVH- plan is for cardiac cath today HTN * Lisinopril 20mg PO daily, Coreg 3.125mg PO BID, Hydralazine 10mg IV prn with parameters * Lipid panel -WNL Tachycardia * Elevated d-dimer 1508 * CTA - no PE Bilateral Lower Extremity Edema * Most likely 2/2 CHF * Venous dopplers to rule out DVT- negative Electrolyte Imbalances * Potassium and Magnesium 2/2 lasix * Repleted * Continue to monitor Testicular Swelling * Testicular US:Scrotal skin thickening. The testes and epididymides have a normal ultrasound appearance. Renal Insufficiency -RESOLVED * BUN/CRE: 25/1.9, GFR: 39 on admission Prophylactic Measures * GI PPX: Pepcid 20mg PO daily * DVT PPX: SCDs c/i due to edema, Heparin [id number] * PT/OT DW Dr. Quesada, Alena RILEY, PGY-1
[2017-02-04 08:01] LABS: CHLORIDE 100 mmol/L (98-107); POTASSIUM 3.4 mmol/L (3.6-5.2); SODIUM 137 mmol/L (132-148)
[2017-02-04 08:03] LABS: ALB/GLOB RATIO 1.1 (1.0-2.1); AST/SGOT 23 U/L (17-59); BILIRUBIN,TOTAL 0.9 mg/dL (0.2-1.3); CARBON DIOXIDE 26 mmol/L (22-30); GFR AFRICAN-AMERICAN > 60
[2017-02-04 08:04] LABS: ALKALINE PHOSPHATASE 97 U/L (38-126); ALT/SGPT 32 U/L (21-72); BLOOD UREA NITROGEN 20 mg/dL (9-20); CALCIUM 8.5 mg/dl (8.6-10.4); GLUCOSE,RANDOM 87 mg/dL (75-110); MAGNESIUM 1.9 mg/dL (1.6-2.3); PHOSPHOROUS 2.9 mg/dL (2.5-4.5)
--- NOTE | 2017-02-04 08:23 | CP.PCM.DIS ---
<Yuli Carvajal - Last Filed: 02/04/17 08:15> Provider - Provider Date of Admission: 02/01/17 18:55 Attending physician: Derick Nava MD Consults: CArdio: Dr. Dewitt Time Spent in preparation of Discharge (in minutes): 55 Hospital Course - Lab Results Lab Results: Most Recent Lab Values WBC 7.9 K/uL (4.8-10.8) 02/04/17 06:39 RBC 5.53 Mil/uL (4.40-5.90) 02/04/17 06:39 Hgb 14.4 g/dL (12.0-18.0) 02/04/17 06:39 Hct 43.6 % (35.0-51.0) 02/04/17 06:39 MCV 78.9 fL (80.0-94.0) L 02/04/17 06:39 MCH 26.1 pg (27.0-31.0) L 02/04/17 06:39 MCHC 33.1 g/dL (33.0-37.0) 02/04/17 06:39 RDW 15.4 % (11.5-14.5) H 02/04/17 06:39 Plt Count 248 K/uL (130-400) 02/04/17 06:39 MPV 7.5 fL (7.2-11.7) 02/04/17 06:39 Neut % (Auto) 74.6 % (50.0-75.0) 02/04/17 06:39 Lymph % (Auto) 13.6 % (20.0-40.0) L 02/04/17 06:39 [place] % (Auto) 8.0 % (0.0-10.0) 02/04/17 06:39 Eos % (Auto) 2.9 % (0.0-4.0) 02/04/17 06:39 Baso % (Auto) 0.9 % (0.0-2.0) 02/04/17 06:39 Neut # 5.9 K/uL (1.8-7.0) 02/04/17 06:39 Lymph # 1.1 K/uL (1.0-4.3) 02/04/17 06:39 [place] # 0.6 K/uL (0.0-0.8) 02/04/17 06:39 Eos # 0.2 K/uL (0.0-0.7) 02/04/17 06:39 Baso # 0.1 K/uL (0.0-0.2) 02/04/17 06:39 D-Dimer, Quantitative 1508 ng/mlDDU (0-243) H 02/03/17 11:29 Sodium 138 mmol/L (132-148) 02/03/17 07:20 Potassium 3.2 mmol/L (3.6-5.2) L 02/03/17 07:20 Chloride 100 mmol/L (98-107) 02/03/17 07:20 Carbon Dioxide 30 mmol/L (22-30) 02/03/17 07:20 Anion Gap 11 (10-20) 02/03/17 07:20 BUN 20 mg/dL (9-20) 02/03/17 07:20 Creatinine 1.5 MG/DL (0.8-1.5) 02/03/17 07:20 Est GFR ( Amer) > 60 02/03/17 07:20 Est GFR (Non-Af Amer) 52 02/03/17 07:20 Random Glucose 97 mg/dL (75-110) 02/03/17 07:20 Calcium 8.6 mg/dl (8.6-10.4) 02/03/17 07:20 Phosphorus 2.7 mg/dL (2.5-4.5) 02/03/17 07:20 Magnesium 1.5 mg/dL (1.6-2.3) L 02/03/17 07:20 Total Bilirubin 1.0 mg/dL (0.2-1.3) 02/03/17 07:20 AST 25 U/L (17-59) 02/03/17 07:20 ALT 37 U/L (21-72) 02/03/17 07:20 Alkaline Phosphatase 100 U/L (38-126) 02/03/17 07:20 Total Creatine Kinase 104 U/L (55-170) 02/02/17 08:32 CK-MB (Mass) 2.58 ng/mL (0.0-3.38) 02/02/17 08:32 Troponin I 0.0690 ng/mL (0.00-0.120) 02/01/17 17:07 Troponin I, Quant 0.0670 ng/mL (0.00-0.120) 02/02/17 08:32 NT-Pro-B Natriuret Pep 43306 pg/mL (0-450) H 02/01/17 17:07 Total Protein 6.1 g/dL (6.3-8.3) L 02/03/17 07:20 Albumin 3.2 g/dL (3.5-5.0) L 02/03/17 07:20 Globulin 2.9 gm/dL (2.2-3.9) 02/03/17 07:20 Albumin/Globulin Ratio 1.1 (1.0-2.1) 02/03/17 07:20 Triglycerides 86 mg/dL (0-149) 02/02/17 08:32 Cholesterol 144 mg/dL (0-199) 02/02/17 08:32 LDL Cholesterol Direct 109 mg/dL (0-129) 02/02/17 08:32 HDL Cholesterol 35 mg/dL (30-70) 02/02/17 08:32 Urine Color Straw (YELLOW) 02/01/17 19:10 Urine Clarity Clear (Clear) 02/01/17 19:10 Urine pH 7.0 (5.0-8.0) 02/01/17 19:10 Ur Specific [place] 1.005 (1.003-1.030) 02/01/17 19:10 Urine Protein 30 mg/dL (NEGATIVE) 02/01/17 19:10 Urine Glucose (UA) Normal mg/dL (Normal) 02/01/17 19:10 Urine Ketones Negative mg/dL (NEGATIVE) 02/01/17 19:10 Urine Blood Negative (NEGATIVE) 02/01/17 19:10 Urine Nitrate Negative (NEGATIVE) 02/01/17 19:10 Urine Bilirubin Negative (NEGATIVE) 02/01/17 19:10 Urine Urobilinogen Normal mg/dL (0.2-1.0) 02/01/17 19:10 Ur Leukocyte Esterase Neg Ally/uL (Negative) 02/01/17 19:10 Urine WBC (Auto) 1 /hpf (0-5) 02/01/17 19:10 Ur Squamous Epith Cells < 1 /hpf (0-5) 02/01/17 19:10 Urine Opiates Screen Negative (NEGATIVE) 02/01/17 22:36 Urine Methadone Screen Negative (NEGATIVE) 02/01/17 22:36 Ur Barbiturates Screen Negative (NEGATIVE) 02/01/17 22:36 Ur Phencyclidine Scrn Negative (NEGATIVE) 02/01/17 22:36 Ur Amphetamines Screen Negative (NEGATIVE) 02/01/17 22:36 U Benzodiazepines Scrn Negative (NEGATIVE) 02/01/17 22:36 U Oth Cocaine Metabols Negative (NEGATIVE) 02/01/17 22:36 U Cannabinoids Screen Negative (NEGATIVE) 02/01/17 22:36 - Hospital Course Hospital Course: Upon Admission: CC: Bilateral leg swelling, scrotum swelling HPI: 42M with no significant PMHx presents to the ED with bilateral leg swelling x1 week and scrotal swelling x 4 days. Patient reports he started to feel SOB when ambulating about 1 month ago. It was harder for him to walk up stairs, and he noticed at night, he needs 2-3 pillows to sleep. He noticed about a week ago, his legs started to swell up. He tried to keep his legs elevated, which helped a little bit, but once he ambulated, the swelling increased. Patient noticed while showering 4 days ago, that his scrotum started to swell. Denied any pain, discharge, or blood coming from his penis. Patient also reported that he noticed over the past couple of months, an increase in urination and thirst. Denied fever, chills, headache, chest pain, abdominal pain , n/v/d/c, or urinary symptoms. PMHx: Denied PSHx: Appendectomy Meds: Denied All: NKDA SHx: Denied tobacco or illicit drug use, social alcohol drinking FHx: Unremarkable PMD: Denied, last saw one 3 years ago for a physical for work Throughout hospital course: Patient was admitted for New Onset CHF. Patient had an echocardiogram showing ejection fraction of 25% and severe LVH. Patient was started on ACEi, BB, lasix , aldactone, and ASA. Patient was diuresed and his symptoms improved. Patient wanted to sign out AMA, the risks and benefits where explained to the patient, such as sudden cardiac arrest. Patient stated he understood these risks but he has personal arrangements that he has to attend such as a court date for child support and to pay his rent. After, speaking with Dr. Quesada and Dr. Dewitt, it was decided to discharge the patient with the appropriate medications and to have him come to the [facility], establish himself as a patient, and get a referral to see Dr. Dewitt in his office, so that a cardiac cath can be arranged. This is a short summary of the patient's hospital course. Please review EMR. Discharge Exam - Head Exam Head Exam: ATRAUMATIC, NORMAL INSPECTION, NORMOCEPHALIC - Eye Exam Eye Exam: EOMI, Normal appearance, PERRL - ENT Exam ENT Exam: Mucous Membranes Moist, Normal Exam - Respiratory Exam Respiratory Exam: Clear to PA & Lateral, NORMAL BREATHING PATTERN - Cardiovascular Exam Cardiovascular Exam: REGULAR RHYTHM, RRR, +S1, +S2 - GI/Abdominal Exam GI & Abdominal Exam: Normal Bowel Sounds, Soft. absent: Distended, Tenderness - Extremities Exam Extremities exam: normal inspection, pedal pulses present - Neurological Exam Neurological exam: Alert, Oriented x3 - Psychiatric Exam Psychiatric exam: Normal Affect, Normal Mood - Skin Skin Exam: Dry, Intact, Normal Color, Warm Discharge Plan - Discharge Medications Prescriptions: Aspirin 81 mg PO DAILY #30 tab.chew Carvedilol [Coreg] 3.125 mg PO BID #60 tab Lisinopril [Zestril] 20 mg PO DAILY #30 tab Potassium Chloride [K-Dur 20 mEq ER Tab] 40 meq PO DAILY #30 tab Spironolactone [Aldactone] 50 mg PO DAILY #30 tablet Spironolactone [Aldactone] 50 mg PO DAILY #30 tab - Follow Up Plan Condition: SERIOUS Disposition: HOME/ ROUTINE Instructions: Spironolactone (By mouth), Lisinopril (By mouth), Potassium Chloride (By mouth), Aspirin (By mouth), Carvedilol (By mouth), Heart Failure ( DC), Heart Failure (GEN), Pacemaker (DC), Pacemaker (GEN), Pulmonary Edema (DC) , Pulmonary Edema (GEN), Ascites (DC), Ascites (GEN), Hypertension (DC), Hypertension (GEN) Additional Instructions: Patient initially wanted to sign out AMA. After explaining the risks of leaving , such as sudden cardiac arrest, patient insisted to leave. After speaking with the patient, primary attending and with strapping machine tender, the patient will be discharged with medications and STRONGLY encouraged to follow up with Dr. Dewitt the Senior Investment Manager to have a cardiac cath scheduled as an outpatient. FIRST patient must apply for [facility]. Once he is approved make an appointment with the clinic here at [facility]. Once he has an appointment, he can get a referral to see Dr. Dewitt, the strapping machine tender to have the cardiac cath arranged as outpatient. PLEASE take the medications we prescribed EVERY DAY DIRECTED. Please return to the ED if your symptoms, worsen. Referrals: [facility] [Outside] René Dewitt MD [Staff Provider] - <López Quesada - Last Filed: 02/04/17 14:42> Provider - Provider Date of Admission: 02/01/17 18:55 Attending physician: Derick Nava MD Hospital Course - Lab Results Lab Results: Most Recent Lab Values WBC 7.9 K/uL (4.8-10.8) 02/04/17 06:39 RBC 5.53 Mil/uL (4.40-5.90) 02/04/17 06:39 Hgb 14.4 g/dL (12.0-18.0) 02/04/17 06:39 Hct 43.6 % (35.0-51.0) 02/04/17 06:39 MCV 78.9 fL (80.0-94.0) L 02/04/17 06:39 MCH 26.1 pg (27.0-31.0) L 02/04/17 06:39 MCHC 33.1 g/dL (33.0-37.0) 02/04/17 06:39 RDW 15.4 % (11.5-14.5) H 02/04/17 06:39 Plt Count 248 K/uL (130-400) 02/04/17 06:39 MPV 7.5 fL (7.2-11.7) 02/04/17 06:39 Neut % (Auto) 74.6 % (50.0-75.0) 02/04/17 06:39 Lymph % (Auto) 13.6 % (20.0-40.0) L 02/04/17 06:39 [place] % (Auto) 8.0 % (0.0-10.0) 02/04/17 06:39 Eos % (Auto) 2.9 % (0.0-4.0) 02/04/17 06:39 Baso % (Auto) 0.9 % (0.0-2.0) 02/04/17 06:39 Neut # 5.9 K/uL (1.8-7.0) 02/04/17 06:39 Lymph # 1.1 K/uL (1.0-4.3) 02/04/17 06:39 [place] # 0.6 K/uL (0.0-0.8) 02/04/17 06:39 Eos # 0.2 K/uL (0.0-0.7) 02/04/17 06:39 Baso # 0.1 K/uL (0.0-0.2) 02/04/17 06:39 D-Dimer, Quantitative 1508 ng/mlDDU (0-243) H 02/03/17 11:29 Sodium 137 mmol/L (132-148) 02/04/17 06:39 Potassium 3.4 mmol/L (3.6-5.2) L 02/04/17 06:39 Chloride 100 mmol/L (98-107) 02/04/17 06:39 Carbon Dioxide 26 mmol/L (22-30) 02/04/17 06:39 Anion Gap 14 (10-20) 02/04/17 06:39 BUN 20 mg/dL (9-20) 02/04/17 06:39 Creatinine 1.4 MG/DL (0.8-1.5) 02/04/17 06:39 Est GFR ( Amer) > 60 02/04/17 06:39 Est GFR (Non-Af Amer) 56 02/04/17 06:39 Random Glucose 87 mg/dL (75-110) 02/04/17 06:39 Calcium 8.5 mg/dl (8.6-10.4) L 02/04/17 06:39 Phosphorus 2.9 mg/dL (2.5-4.5) 02/04/17 06:39 Magnesium 1.9 mg/dL (1.6-2.3) 02/04/17 06:39 Total Bilirubin 0.9 mg/dL (0.2-1.3) 02/04/17 06:39 AST 23 U/L (17-59) 02/04/17 06:39 ALT 32 U/L (21-72) 02/04/17 06:39 Alkaline Phosphatase 97 U/L (38-126) 02/04/17 06:39 Total Creatine Kinase 104 U/L (55-170) 02/02/17 08:32 CK-MB (Mass) 2.58 ng/mL (0.0-3.38) 02/02/17 08:32 Troponin I 0.0690 ng/mL (0.00-0.120) 02/01/17 17:07 Troponin I, Quant 0.0670 ng/mL (0.00-0.120) 02/02/17 08:32 NT-Pro-B Natriuret Pep 94409 pg/mL (0-450) H 02/01/17 17:07 Total Protein 6.0 g/dL (6.3-8.3) L 02/04/17 06:39 Albumin 3.1 g/dL (3.5-5.0) L 02/04/17 06:39 Globulin 2.9 gm/dL (2.2-3.9) 02/04/17 06:39 Albumin/Globulin Ratio 1.1 (1.0-2.1) 02/04/17 06:39 Triglycerides 86 mg/dL (0-149) 02/02/17 08:32 Cholesterol 144 mg/dL (0-199) 02/02/17 08:32 LDL Cholesterol Direct 109 mg/dL (0-129) 02/02/17 08:32 HDL Cholesterol 35 mg/dL (30-70) 02/02/17 08:32 Urine Color Straw (YELLOW) 02/01/17 19:10 Urine Clarity Clear (Clear) 02/01/17 19:10 Urine pH 7.0 (5.0-8.0) 02/01/17 19:10 Ur Specific [place] 1.005 (1.003-1.030) 02/01/17 19:10 Urine Protein 30 mg/dL (NEGATIVE) 02/01/17 19:10 Urine Glucose (UA) Normal mg/dL (Normal) 02/01/17 19:10 Urine Ketones Negative mg/dL (NEGATIVE) 02/01/17 19:10 Urine Blood Negative (NEGATIVE) 02/01/17 19:10 Urine Nitrate Negative (NEGATIVE) 02/01/17 19:10 Urine Bilirubin Negative (NEGATIVE) 02/01/17 19:10 Urine Urobilinogen Normal mg/dL (0.2-1.0) 02/01/17 19:10 Ur Leukocyte Esterase Neg Ally/uL (Negative) 02/01/17 19:10 Urine WBC (Auto) 1 /hpf (0-5) 02/01/17 19:10 Ur Squamous Epith Cells < 1 /hpf (0-5) 02/01/17 19:10 Urine Opiates Screen Negative (NEGATIVE) 02/01/17 22:36 Urine Methadone Screen Negative (NEGATIVE) 02/01/17 22:36 Ur Barbiturates Screen Negative (NEGATIVE) 02/01/17 22:36 Ur Phencyclidine Scrn Negative (NEGATIVE) 02/01/17 22:36 Ur Amphetamines Screen Negative (NEGATIVE) 02/01/17 22:36 U Benzodiazepines Scrn Negative (NEGATIVE) 02/01/17 22:36 U Oth Cocaine Metabols Negative (NEGATIVE) 02/01/17 22:36 U Cannabinoids Screen Negative (NEGATIVE) 02/01/17 22:36 Attending/Attestation - Attestation I have personally seen and examined this patient.: Yes I have fully participated in the care of the patient.: Yes I have reviewed all pertinent clinical information, including history, physical exam and plan: Yes Notes (Text): 02/04/17 14:39 Medical Attending: Patient had left before I was able to physically examine or talk to him today. The patient does have a low EF, so he really needs to follow up with cardiology as well as the primary care [facility] here [facility]. thank you López Quesada
--- NOTE | 2017-02-04 08:26 | PCM.HF ---
Heart Failure Core Measure - Heart Failure Ejection Fraction: Less Than 40 % Left Ventricular Function to be assessed after discharge: Yes HERMINIA Inhibitor Prescribed: Yes Beta-Say Prescribed: Carvedilol Angiotensin II Receptor Say Prescribed: No Contraindication/Reason for not providing: HERMINIA AnticoagulationTherapy for Atrial Fibrillation/Atrialflutter: No Contraindication/Reason for not providing: No hx Aldosterone Antagonist Prescribed: Yes Hydralazine Nitrate Prescribed: No Contraindication/Reason for not providing: N/A Implantable Cardioverter Defibrillator Therapy: No Contraindication/Reason for not providing: N/A Cardiac Resynchronization Therapy Prescribed: No Contraindication/Reason for not providing: N/A - Follow up Will be discharged to: Home Follow Up Date (must be within 7 days from discharge): 02/04/17 Follow Up Time: 09:00 (Patient is to go to [facility] for referral to see Dr. Dewitt for outpatient cardiac cath. )
--- NOTE | 2017-02-04 12:06 | VASCLAB ---
PROCEDURE: Lower Extremity Venous Duplex Exam. HISTORY: Leg pain PRIORS: None. TECHNIQUE: Bilateral common femoral, femoral, popliteal and posterior tibial, peroneal and great saphenous veins were evaluated. Flow was assessed with color Doppler, compressibility, assessment of phasic flow and augmentation response. Report prepared by LORENA Oliveira, RVT FINDINGS: RIGHT: 1. Common Femoral Vein: 1.1. Compressibility - Fully compressible: Thrombus - None : Flow - Phasic: Augmentation -Normal: Reflux - None. 2. Femoral Vein: 2.1. Compressibility - Fully compressible: Thrombus - None : Flow - Phasic: Augmentation -Normal: Reflux - None. 3. Popliteal Vein: 3.1. Compressibility - Fully compressible: Thrombus - None : Flow - Phasic: Augmentation -Normal: Reflux - None. 4. Posterior Tibial Vein: 4.1. Compressibility - Fully compressible: Thrombus - None: Flow - Phasic: Augmentation -Normal: Reflux - None. 5. Peroneal Vein: 5.1. Compressibility - Fully compressible: Thrombus - None: Flow - Phasic: Augmentation -Normal: Reflux - None. 6. Great Saphenous Vein: 6.1. Compressibility - Fully compressible: Thrombus - None: Flow - Phasic: Augmentation - Normal: Reflux - None. LEFT: 1. Common Femoral Vein: 1.1. Compressibility - Fully compressible: Thrombus - None: Flow - Phasic: Augmentation -Normal: Reflux - None. 2. Femoral Vein: 2.1. Compressibility - Fully compressible: Thrombus - None: Flow - Phasic: Augmentation -Normal: Reflux - None. 3. Popliteal Vein: 3.1. Compressibility - Fully compressible: Thrombus - None : Flow - Phasic: Augmentation -Normal: Reflux - None. 4. Posterior Tibial Vein: 4.1. Compressibility - Fully compressible: Thrombus - None: Flow - Phasic: Augmentation -Normal: Reflux - None. 5. Peroneal Vein: 5.1. Compressibility - Fully compressible: Thrombus - None: Flow - Phasic: Augmentation -Normal: Reflux - None. 6. Great Saphenous Vein: 6.1. Compressibility - Fully compressible: Thrombus - None: Flow - Phasic: Augmentation - Normal: Reflux - None. OTHER FINDINGS: Right: None significant. Left: None significant. IMPRESSION: Right: No evidence of deep or superficial vein thrombosis of the right lower extremity. Normal valve function noted of the right side. Left: No evidence of deep or superficial vein thrombosis of the left lower extremity. Normal valve function noted of the left side.
[2017-02-04] MEDS ORDERED: Pneumococcal 23-Valent Vaccine IM ONE (14:00)
--- NOTE | 2017-02-04 17:44 | CARD ---
APPROVED REPORT EKG Measurement Heart [id number] 154P16 [id number] <Conclusion> Sinus tachycardia Possible Left atrial enlargement Left axis deviation Nonspecific intraventricular block T wave abnormality, consider lateral ischemia Abnormal ECG
--- NOTE | 2017-02-05 14:23 | CARD ---
APPROVED REPORT EKG Measurement Heart [id number] [place] 182P42 [id number] <Conclusion> Sinus rhythm with marked sinus arrhythmia Left atrial enlargement Left axis deviation Nonspecific intraventricular block LVH with repolarization abnormality. Abnormal ECG
--- NOTE | 2017-02-05 14:24 | CARD ---
APPROVED REPORT EKG Measurement Heart [id number] 178P41 [id number] <Conclusion> Normal sinus rhythm Possible Left atrial enlargement Nonspecific intraventricular block LVH with repolarization abnormality. Abnormal ECG
== END 2017-02-04 08:56 | disposition home or self-care (01) | DRG 293 ==
LOC: C.ER 16:31 → C.9OBSV 17:00 → C.6T 18:55 → OBSVTOIN 18:55 → C.9E 18:55
PROVIDERS: ADMIT Internal Medicine; ATTEND Internal Medicine
DX: I11.0 Hypertensive heart disease with heart failure (principal); E83.42 Hypomagnesemia; I50.9 Heart failure, unspecified; E87.6 Hypokalemia; F17.210 Nicotine dependence, cigarettes, uncomplicated; N28.9 Disorder of kidney and ureter, unspecified; N50.89 Other specified disorders of the male genital organs; T50.1X5A Adverse effect of loop [high-ceiling] diuretics, initial encounter

== ENCOUNTER 2017-07-15 11:00 | Emergency (ER) | payer OTHER ==
[2017-07-15 11:16] VITALS: BMI 39.1
[2017-07-15 11:18] VITALS: TEMP 98.6
[2017-07-15 12:32] LABS: BASO # 0.1 K/uL (0.0-0.2); BASO % 1.2 % (0.0-2.0); EOS # 0.1 K/uL (0.0-0.7); EOS % 1.2 % (0.0-4.0); HEMOGLOBIN 14.2 g/dL (12.0-18.0); LYMPH # 0.8 K/uL (1.0-4.3); LYMPH % 11.8 % (20.0-40.0); MEAN CORPUSCULAR HEMOGLOBIN 26.7 pg (27.0-31.0); MEAN PLATELET VOLUME 7.9 fL (7.2-11.7); MONO # 0.8 K/uL (0.0-0.8); MONO % 11.1 % (0.0-10.0); NEUT # 5.2 K/uL (1.8-7.0); NEUT % 74.7 % (50.0-75.0); RBC 5.32 Mil/uL (4.40-5.90)
--- NOTE | 2017-07-15 12:35 | C.PDOC ---
History Of Present Illness 42yo male with history of CHF, presents to ED with complaints of chest discomfort, leg swelling for the past month. Patient states these symptoms are similar to what he had 1 year ago when he was diagnosed with CHF. He reports shortness or breath with exertion and states his chest pain is also more prominent with exertion. He states he had insurance issues so he was not able to stay consistent with his medication course for CHF; reports he has not taken his medications since 5 months.He denies any headache, abdominal pain, nausea, vomiting, fever or chills. Time Seen by Provider: 07/15/17 11:49 Chief Complaint (Nursing): Palpitations History Per: Patient History/Exam Limitations: no limitations Onset/Duration Of Symptoms: Days Current Symptoms Are (Timing): Still Present Quality: "Pain" Past Medical History Reviewed: Historical Data, Nursing Documentation, Vital Signs Vital Signs: Last Vital Signs Temp 98.6 F 07/15/17 11:16 Pulse 105 H 07/15/17 11:16 Resp 18 07/15/17 11:16 BP 173/136 H 07/15/17 11:16 Pulse Ox 99 07/15/17 13:12 - Medical History PMH: CHF Surgical History: Appendectomy Family History: States: Unknown Family Hx - Social History Hx Alcohol Use: No (social) Hx Substance Use: No - Immunization History Hx Tetanus Toxoid Vaccination: No Hx Influenza Vaccination: No Hx Pneumococcal Vaccination: No Review Of Systems Except As Marked, All Systems Reviewed And Found Negative. Constitutional: Negative for: Fever, Chills Cardiovascular: Positive for: Chest Pain ("discomfort") Respiratory: Positive for: SOB with Excertion Gastrointestinal: Negative for: Nausea, Vomiting, Abdominal Pain, Diarrhea Neurological: Negative for: Headache Physical Exam - Physical Exam Appears: Non-toxic Skin: Normal Color, Warm Head: Atraumatic, Normacephalic Eye(s): bilateral: Normal Inspection Neck: Supple Chest: Symmetrical Cardiovascular: Rhythm Regular Respiratory: Normal Breath Sounds (no rales appreciated) Gastrointestinal/Abdominal: Normal Exam, Soft, No Tenderness Extremity: Normal ROM, Pedal Edema (pitting edema to bilateral lower extremities with venous stasis changes) Neurological/Psych: Oriented x3 ED Course And Treatment - Laboratory Results Result Diagrams: 07/15/17 12:27 07/15/17 12:27 O2 Sat by Pulse Oximetry: 99 (RA) Pulse Ox Interpretation: Normal Medical Decision Making Medical Decision Making: Impression: CHF exacerbation Plan: -- EKG -- CXR -- Rapid Flu Time: [address] Khan, hospitalist patient relations liaison who will admit the patient. Disposition Counseled Patient/Family Regarding: Studies Performed, Diagnosis - Disposition Disposition: HOSPITALIZED Disposition Time: 13:22 Condition: GUARDED Forms: [facility] ([place]) - Clinical Impression Clinical Impression: CHF (congestive heart failure) - Scribe Statement The provider has reviewed the documentation as recorded by the Trang Ashley Provider Attestation: All medical record entries made by the Trang were at my direction and personally dictated by me. I have reviewed the chart and agree that the record accurately reflects my personal performance of the history, physical exam, medical decision making, and the department course for this patient. I have also personally directed, reviewed, and agree with the discharge instructions and disposition. Decision To Admit - Pt Status Changed To: Hospital Disposition Of: Observation - InPatient: Physician Admission Certification: I certify that this patient requires 2 or more midnights of care for the following reason:: chf - . Bed Request Type: Telemetry Patient Diagnosis: CHF (congestive heart failure)
[2017-07-15 12:36] LABS: MEAN CELL VOLUME 80.9 fL (80.0-94.0)
[2017-07-15 12:42] LABS: ALB/GLOB RATIO 1.2 (1.0-2.1); ALBUMIN 3.8 g/dL (3.5-5.0); CALCIUM 8.4 mg/dl (8.6-10.4)
[2017-07-15 12:54] LABS: TROPONIN I 0.072 ng/mL (0.00-0.120)
[2017-07-15 16:19] VITALS: BP 173/124; PULSE 102; RESP 21; O2SAT 97
--- NOTE | 2017-07-16 13:57 | RAD ---
HISTORY: sob COMPARISON: Chest radiograph dated 02/01/2017 TECHNIQUE: Chest PA and lateral FINDINGS: LUNGS: No active pulmonary disease. PLEURA: No significant pleural effusion identified. No pneumothorax apparent. CARDIOVASCULAR: Cardiomediastinal silhouette stably enlarged. Small pericardial effusion suspected. OSSEOUS STRUCTURES: Unchanged. VISUALIZED UPPER ABDOMEN: Normal. OTHER FINDINGS: None. IMPRESSION: No focal consolidation or pleural effusion. Small pericardial effusion suspected.
--- NOTE | 2017-07-18 04:14 | CARD ---
APPROVED REPORT EKG Measurement Heart [id number] [place] 182P41 [id number] <Conclusion> Sinus tachycardia Left atrial enlargement Left axis deviation Nonspecific intraventricular block T wave abnormality, consider lateral ischemia Abnormal ECG
== END 2017-07-15 16:22 | disposition left against medical advice (07) ==
LOC: C.ER 11:00 → UNDOADMOB 13:23 → C.9E 13:23
DX: I50.9 Heart failure, unspecified (principal)
CPT/HCPCS: 71046; 80053; 83880; 84484; 85025; 87804; 93005; 96374; 99285; J1940

== ENCOUNTER 2017-07-19 08:09 | Inpatient (IN) | payer OTHER ==
[2017-07-19 08:09] VITALS: BMI 39.1
[2017-07-19 09:11] LABS: BASO % 0.8 % (0.0-2.0); EOS % 0.6 % (0.0-4.0); HEMOGLOBIN 13.3 g/dL (12.0-18.0); LYMPH # 0.4 K/uL (1.0-4.3); LYMPH % 7.5 % (20.0-40.0); MEAN CELL VOLUME 79.8 fL (80.0-94.0); MEAN CORPUSCULAR HEMOGLOBIN 26.6 pg (27.0-31.0); MEAN CORPUSCULAR HGB CONC 33.4 g/dL (33.0-37.0); MEAN PLATELET VOLUME 7.6 fL (7.2-11.7); MONO # 0.7 K/uL (0.0-0.8); MONO % 12.3 % (0.0-10.0); NEUT # 4.6 K/uL (1.8-7.0); NEUT % 78.8 % (50.0-75.0); NRBC % 0.1 % (0.0-2.0); PLATELET COUNT 175 K/uL (130-400); RBC 4.98 Mil/uL (4.40-5.90); RED CELL DISTRIBUTION WIDTH 15.2 % (11.5-14.5); WHITE BLOOD COUNT 5.8 K/uL (4.8-10.8)
--- NOTE | 2017-07-19 09:26 | C.PDOC ---
History Of Present Illness 42 year old male, with no significant PMHx, presents to ED for evaluation of increased shortness of breath, dry cough, and lower extremity edema for the past week. Pt denies any chest pain at this time, but states he does have chest pain with exertion. Pt states he was here 3 days ago for similar symptoms, was admitted but was not able to stay at that time. Denies fever, or other complaints. Chief Complaint (Nursing): Chest Pain History Per: Patient History/Exam Limitations: no limitations Past Medical History Reviewed: Historical Data, Nursing Documentation, Vital Signs Vital Signs: Last Vital Signs Temp 98.2 F 07/19/17 15:45 Pulse 86 07/19/17 15:45 Resp 18 07/19/17 15:45 BP 148/102 H 07/19/17 15:45 Pulse Ox 97 07/19/17 15:45 - Medical History PMH: CHF Surgical History: Appendectomy Family History: States: Unknown Family Hx - Social History Hx Alcohol Use: No (social) Hx Substance Use: No - Immunization History Hx Tetanus Toxoid Vaccination: No Hx Influenza Vaccination: No Hx Pneumococcal Vaccination: No Review Of Systems Except As Marked, All Systems Reviewed And Found Negative. Constitutional: Negative for: Fever, Chills Cardiovascular: Positive for: Chest Pain (with exertion), Edema. Negative for: Palpitations, Light Headedness Respiratory: Positive for: Cough, Shortness of Breath. Negative for: Hemoptysis , Sputum Gastrointestinal: Negative for: Nausea, Vomiting, Abdominal Pain Physical Exam - Physical Exam Appears: Non-toxic, No Acute Distress Skin: Normal Color, Warm, Dry Head: Atraumatic, Normacephalic Eye(s): bilateral: Normal Inspection Oral Mucosa: Moist Neck: Normal ROM, Supple Cardiovascular: Rhythm Regular, Other (PMI is displaced) Respiratory: No Accessory Muscle Use, No Rales, No Rhonchi, No Wheezing, Other ( coarse breath sounds) Gastrointestinal/Abdominal: Bowel Sounds, Soft, No Tenderness Extremity: Normal ROM, Pedal Edema (pitting edema to bilateral knees), Capillary Refill (less than 2 seconds) Neurological/Psych: Oriented x3, Normal Speech ED Course And Treatment - Laboratory Results Result Diagrams: 07/19/17 09:05 07/19/17 09:05 ECG: Interpreted By Me, Viewed By Me ECG Rhythm: Sinus Tachycardia Interpretation Of ECG: Left axis deviation. Left anterior fascicular block. Left atrial enlargement. T wave depression in lateral leads. Rate From EC (bpm) O2 Sat by Pulse Oximetry: 95 (RA) Pulse Ox Interpretation: Normal Medical Decision Making Medical Decision Making: Plan: EKG/CXR Blood work Influenza AB Reassess and disposition Disposition - Disposition Disposition: HOSPITALIZED Disposition Time: 09:40 Condition: STABLE - Clinical Impression Clinical Impression: CHF exacerbation - Scribe Statement The provider has reviewed the documentation as recorded by the Jamshidibbarry Brantley All medical record entries made by the Jamshidibbarry were at my direction and personally dictated by me. I have reviewed the chart and agree that the record accurately reflects my personal performance of the history, physical exam, medical decision making, and the department course for this patient. I have also personally directed, reviewed, and agree with the discharge instructions and disposition.
--- NOTE | 2017-07-19 09:27 | RAD ---
PROCEDURE: CHEST RADIOGRAPH, 1 VIEW HISTORY: chest pain COMPARISON: None available. FINDINGS: LUNGS: Clear. PLEURA: No pneumothorax or pleural fluid seen. CARDIOVASCULAR: Cardiomegaly OSSEOUS STRUCTURES: No significant abnormalities. VISUALIZED UPPER ABDOMEN: Normal. OTHER FINDINGS: None. IMPRESSION: No active disease.
[2017-07-19 09:32] LABS: ALB/GLOB RATIO 1.2 (1.0-2.1); ALBUMIN 3.6 g/dL (3.5-5.0); CALCIUM 8.5 mg/dl (8.6-10.4)
[2017-07-19 09:39] LABS: TROPONIN I 0.079 ng/mL (0.00-0.120)
[2017-07-19 09:59] LABS: BANDS 1 % (0-2); LYMPHOCYTE 8 % (20-40); MONOCYTE 12 % (0-10); NEUTROPHIL 79 % (50-75); TOTAL CELLS COUNTED 100
[2017-07-19 10:00] LABS: ANISOCYTOSIS SLIGHT; PLATELET ESTIMATE NORMAL (NORMAL)
[2017-07-19] MEDS ORDERED: Enoxaparin 120 mg Syringe SC STA (10:02)
[2017-07-19] MEDS ORDERED: Enoxaparin 60 mg Syringe ONE (10:18)
--- NOTE | 2017-07-19 12:01 | CP.PCM.HP ---
<BillDali V - Last Filed: 07/19/17 18:00> Meds Allergies/Adverse Reactions: Allergies Allergy/AdvReac Type Severity Reaction Status Date / Time No Known Allergies Allergy Verified 07/19/17 08:17 Results - Vital Signs Recent Vital Signs: Last Vital Signs Temp 98.2 F 07/19/17 15:45 Pulse 86 07/19/17 15:45 Resp 18 07/19/17 15:45 BP 148/102 H 07/19/17 15:45 Pulse Ox 97 07/19/17 15:45 - Labs Result Diagrams: 07/19/17 09:05 07/19/17 09:05 Labs: Laboratory Results - last 24 hr 07/19/17 07/19/17 07/19/17 09:05 09:05 09:05 WBC 5.8 RBC 4.98 Hgb 13.3 Hct 39.7 MCV 79.8 L MCH 26.6 L MCHC 33.4 RDW 15.2 H Plt Count 175 MPV 7.6 Neut % (Auto) 78.8 H Lymph % (Auto) 7.5 L [place] % (Auto) 12.3 H Eos % (Auto) 0.6 Baso % (Auto) 0.8 Neut # (Auto) 4.6 Lymph # (Auto) 0.4 L [place] # (Auto) 0.7 Eos # (Auto) 0.0 Baso # (Auto) 0.0 Neutrophils % (Manual) 79 H Band Neutrophils % 1 Lymphocytes % (Manual) 8 L Monocytes % (Manual) 12 H Platelet Estimate Normal Anisocytosis (manual) Slight D-Dimer, Quantitative 395 H Puncture Site pCO2 pO2 HCO3 ABG pH ABG Total CO2 ABG O2 Saturation ABG Base Excess Micky Test ABG Potassium A-a O2 Difference Respiratory Index Glucose Lactate FiO2 Sodium 137 Potassium 3.7 Chloride 97 L Carbon Dioxide 31 H Anion Gap 14 BUN 26 H Creatinine 1.8 H Est GFR ( Amer) 51 Est GFR (Non-Af Amer) 42 Random Glucose 142 H Calcium 8.5 L Total Bilirubin 1.4 H AST 29 ALT 28 Alkaline Phosphatase 84 Total Creatine Kinase CK-MB (Mass) Troponin I 0.0790 NT-Pro-B Natriuret Pep 29589 H Total Protein 6.5 Albumin 3.6 Globulin 2.9 Albumin/Globulin Ratio 1.2 Arterial Blood Potassium Influenza Typ A,B (EIA) 07/19/17 07/19/17 07/19/17 13:05 13:39 Unknown WBC RBC Hgb Hct MCV MCH MCHC RDW Plt Count MPV Neut % (Auto) Lymph % (Auto) [place] % (Auto) Eos % (Auto) Baso % (Auto) Neut # (Auto) Lymph # (Auto) [place] # (Auto) Eos # (Auto) Baso # (Auto) Neutrophils % (Manual) Band Neutrophils % Lymphocytes % (Manual) Monocytes % (Manual) Platelet Estimate Anisocytosis (manual) D-Dimer, Quantitative Puncture Site Rra pCO2 40 pO2 75 L HCO3 28.8 H ABG pH 7.47 H ABG Total CO2 30.3 H ABG O2 Saturation 98.0 ABG Base Excess 5.0 H Micky Test Yes ABG Potassium 3.0 L A-a O2 Difference 25.0 Respiratory Index 0.3 Glucose 116 H Lactate 0.7 FiO2 21.0 Sodium 139.0 Potassium Chloride 105.0 Carbon Dioxide Anion Gap BUN Creatinine Est GFR ( Amer) Est GFR (Non-Af Amer) Random Glucose Calcium Total Bilirubin AST ALT Alkaline Phosphatase Total Creatine Kinase 108 CK-MB (Mass) 2.25 Troponin I 0.0830 NT-Pro-B Natriuret Pep Total Protein Albumin Globulin Albumin/Globulin Ratio Arterial Blood Potassium 3.0 L Influenza Typ A,B (EIA) Negative for flu a/b Assessment & Plan (1) Hypertensive urgency Status: Acute Comment: In the ED, given Aspirin 325mg PO X1, Labetolol 20mg IVP X1, Lasix 40mg IV X2 doses. Short term goal: reduce SBP~160 and~<100. Start Coreg 6.25mg PO BID. Start Lasix 40mg IV BID. Start Hydralazine 25mg PO TID. Patient hasn't been been on anti-hypertensive. To reduce blood pressure by 25 percent over 24 hours (slowly) (2) Acute systolic (congestive) heart failure Status: Acute Priority: High Comment: Admit on telemetry. History of noncompliance. Cardiology (Dr. Dewitt) on the case-->help appreciated. elevated probnp. In the ED, given Aspirin 325mg PO X1, Labetolol 20mg IVP, Lasix 40mg IV X2 doses. MARIO and EKG Q6H X3. Start Lasix 40mg IV BID. Start Coreg 6.25mg PO BID. Start Hydralazine 25mg PO TID. Nitrosublingual PRN for chest pain. Crestor 10mg POqHS. Intake and Output. Measure Weight Daily. 1 Liter Fluid Restriction. Echocardiogram (2016); mild to moderate left ventricular hypertrophy. Global hypokinesis of the left ventricle. Systolic function is severely impaired. EF: 25-30%. Severe diastolic dysfunction. Restrictive diastolic dysfunction. Right ventricle mildly dilated with systolic function, Mildly to refused. Moderate b-atrial enlargement. Right ventricular systolic pressure 40-50mmg HG w moderate pulmonary hypertension. Trace pericardial effusion. (3) Dyspnea Status: Acute Comment: Likely secondary to decompensated CHF. Elevated D-dimer. Order for stat Lung V/Q to rule out PE (unable to do CT Angio given renal function). Echocardiogram (01/2017); mild to moderate left ventricular hypertrophy. Global hypokinesis of the left ventricle. Systolic function is severely impaired. EF: 25-30%. Severe diastolic dysfunction. Restrictive diastolic dysfunction. Right ventricle mildly dilated with systolic function, Mildly to refused. Moderate b- atrial enlargement. Right ventricular systolic pressure 40-50mmg HG w moderate pulmonary hypertension. Trace pericardial effusion. Patient has gotten therapuetic Lovenox today to cover for PE. PERC: 1 rule cannot be used to rule out PE in this patient. [place]: 5 moderate risk group. Wells Criteria: 4.5 moderate risk group. Chest xray (07/19/17): No active disease. Cardiomegaly. (4) Renal insufficiency Status: Acute Comment: Bladder scan: 146 in the ED. Patient is urinating well. Monitor intake and output. Renal US ordered. Nephrology (Dr. Estevez) on consult (5) Morbidly obese Status: Acute Comment: Check a1c, TSH, lipid panel, risk factor LAZARO (6) Elevated d-dimer Status: Acute Comment: Elevated D-dimer. Order for stat Lung V/Q to rule out PE (unable to do CT Angio given renal function). Echocardiogram (01/2017); mild to moderate left ventricular hypertrophy. Global hypokinesis of the left ventricle. Systolic function is severely impaired. EF: 25-30%. Severe diastolic dysfunction. Restrictive diastolic dysfunction. Right ventricle mildly dilated with systolic function, Mildly to refused. Moderate b-atrial enlargement. Right ventricular systolic pressure 40-50mmg HG w moderate pulmonary hypertension. Trace pericardial effusion. Patient has gotten therapuetic Lovenox today to cover for PE. PERC: 1 rule cannot be used to rule out PE in this patient. [place]: 5 moderate risk group. Wells Criteria: 4.5 moderate risk group. Venous bilateral lower extremities ordered rule out DVT (7) Tobacco use Assessment and Plan: Nicotone patch 1/2 PPD X20 years Status: Acute (8) Pulmonary hypertension Status: Acute Comment: Echocardiogram (01/2017); mild to moderate left ventricular hypertrophy. Global hypokinesis of the left ventricle. Systolic function is severely impaired. EF: 25-30%. Severe diastolic dysfunction. Restrictive diastolic dysfunction. Right ventricle mildly dilated with systolic function, Mildly to refused. Moderate b-atrial enlargement. Right ventricular systolic pressure 40-50mmg HG w moderate pulmonary hypertension. Trace pericardial effusion. V/Q Scan to rule out PE (9) Prophylactic measure Assessment and Plan: Lovenox 120mg subq X1 Pepcid 20mg PO daily intake and output monitor daily weight telemetry Status: Acute Attending/Attestation - Attestation I have personally seen and examined this patient.: Yes I have fully participated in the care of the patient.: Yes I have reviewed all pertinent clinical information: Yes <Claribel Lockhart - Last Filed: 07/19/17 22:04> History of Present Illness - History of Present Illness History of Present Illness: HPI: Patient is a 42 year old male with a past medical history of CHF, LAZARO, HTN , who presents to the ED with shortness of breath, swollen legs, and abdominal pain. Patient has been experiencing shortness of breath and swollen legs for 1 month. 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 Patient complains of fatigue , SOB, cough with clear sputum, abdominal pain (lower right and left quadrants- diffuse), leg and scrotal swelling. Patient believes he had gained approximately 30lbs of weight due the swelling. Patient does not take medications or have a PMD due to insurance and lack of time due work schedule. Currently, patient reports his scrotal swelling has decreased, has increased urinary frequency after receiving lasix in the ED, and feels less SOB. Patient denies chest pain, nausea, vomiting, fevers, headaches, dizziness. PMD: none PMHx: CHF (recently diagnosed in 01/2017), LAZARO, HTN SurgHx: appendectomy 1994 FamHx: denies, unknown SocHx: smokes 1/2ppd x20 years, social drinker, and denies drug use; lives in [place]; works at [employer]. Allergies: NKDA Medications: none Present on Admission - Present on Admission Any Indicators Present on Admission: No Review of Systems - Constitutional Constitutional: Weight Gain (30lbs). absent: Chills, Fever, Headache - EENT Eyes: absent: Change in Vision Ears: absent: Dizziness - Cardiovascular Cardiovascular: Dyspnea, Dyspnea on Exertion, Edema, Leg Edema, Palpitations. absent: Chest Pain, Lightheadedness - Respiratory Respiratory: Cough, Dyspnea, Dyspnea on Exertion. absent: Hemoptysis, Excessive Mucous Production - Gastrointestinal Gastrointestinal: Abdominal Pain (diffuse, lower right and left abdomen). absent: Constipation, Diarrhea, Nausea, Vomiting - Genitourinary Genitourinary: Urinary Frequency. absent: Change in Urinary Stream, Difficulty Urinating, Dysuria, Hematuria - Reproductive: Male Additional comments: Scrotal edema - Integumentary Integumentary: Swelling (LE b/l, scrotum) - Neurological Neurological: absent: Dizziness, Headaches - Endocrine Endocrine: Palpitations. absent: Fatigue Past Patient History - Past Medical History & Family History Past Medical History?: No - Past Social History Smoking Status: Heavy Smoker > 10 Cigarettes Daily - CARDIAC Hx Congestive Heart Failure: Yes - MUSCULOSKELETAL/RHEUMATOLOGICAL Hx Falls: No - PSYCHIATRIC Hx Substance Use: No - SURGICAL HISTORY Hx Appendectomy: Yes - ANESTHESIA Hx Anesthesia: Yes Hx Anesthesia Reactions: No Physical Exam - Head Exam Head Exam: ATRAUMATIC, NORMAL INSPECTION - Eye Exam Eye Exam: EOMI, Normal appearance, PERRL - ENT Exam ENT Exam: Mucous Membranes Moist - Respiratory Exam Respiratory Exam: Wheezes. absent: Clear to Auscultation Bilateral, Respiratory Distress, NORMAL BREATHING PATTERN (tachypneic) - Cardiovascular Exam Cardiovascular Exam: Tachycardia, +S1, +S2 - GI/Abdominal Exam GI & Abdominal Exam: Normal Bowel Sounds, Soft, Tenderness (RLQ, LLQ). absent: Firm, Guarding, Mass - Extremities Exam Extremities exam: Positive for: pedal edema. Negative for: calf tenderness, normal inspection Additional comments: Pitting edema LE b/l, erythema b/l - Neurological Exam Neurological exam: Alert, Oriented x3 - Psychiatric Exam Psychiatric exam: Normal Affect, Normal Mood - Skin Skin Exam: Dry, Intact, Normal Color, Warm Results - Vital Signs Recent Vital Signs: Last Vital Signs Temp 97.8 F 07/19/17 08:13 Pulse 118 H 07/19/17 11:48 Resp 18 07/19/17 11:48 BP 170/123 H 07/19/17 11:48 Pulse Ox 96 07/19/17 11:48 - Labs Result Diagrams: 07/19/17 09:05 07/19/17 09:05 Labs: Laboratory Results - last 24 hr 07/19/17 07/19/17 07/19/17 09:05 09:05 09:05 WBC 5.8 RBC 4.98 Hgb 13.3 Hct 39.7 MCV 79.8 L MCH 26.6 L MCHC 33.4 RDW 15.2 H Plt Count 175 MPV 7.6 Neut % (Auto) 78.8 H Lymph % (Auto) 7.5 L [place] % (Auto) 12.3 H Eos % (Auto) 0.6 Baso % (Auto) 0.8 Neut # (Auto) 4.6 Lymph # (Auto) 0.4 L [place] # (Auto) 0.7 Eos # (Auto) 0.0 Baso # (Auto) 0.0 Neutrophils % (Manual) 79 H Band Neutrophils % 1 Lymphocytes % (Manual) 8 L Monocytes % (Manual) 12 H Platelet Estimate Normal Anisocytosis (manual) Slight D-Dimer, Quantitative 395 H Sodium 137 Potassium 3.7 Chloride 97 L Carbon Dioxide 31 H Anion Gap 14 BUN 26 H Creatinine 1.8 H Est GFR ( Amer) 51 Est GFR (Non-Af Amer) 42 Random Glucose 142 H Calcium 8.5 L Total Bilirubin 1.4 H AST 29 ALT 28 Alkaline Phosphatase 84 Troponin I 0.0790 NT-Pro-B Natriuret Pep 87657 H Total Protein 6.5 Albumin 3.6 Globulin 2.9 Albumin/Globulin Ratio 1.2 Influenza Typ A,B (EIA) 07/19/17 Unknown WBC RBC Hgb Hct MCV MCH MCHC RDW Plt Count MPV Neut % (Auto) Lymph % (Auto) [place] % (Auto) Eos % (Auto) Baso % (Auto) Neut # (Auto) Lymph # (Auto) [place] # (Auto) Eos # (Auto) Baso # (Auto) Neutrophils % (Manual) Band Neutrophils % Lymphocytes % (Manual) Monocytes % (Manual) Platelet Estimate Anisocytosis (manual) D-Dimer, Quantitative Sodium Potassium Chloride Carbon Dioxide Anion Gap BUN Creatinine Est GFR ( Amer) Est GFR (Non-Af Amer) Random Glucose Calcium Total Bilirubin AST ALT Alkaline Phosphatase Troponin I NT-Pro-B Natriuret Pep Total Protein Albumin Globulin Albumin/Globulin Ratio Influenza Typ A,B (EIA) Negative for flu a/b Assessment & Plan (1) Acute systolic (congestive) heart failure Assessment and Plan: Monitor on telemetry * Cardiology, Dr. Dewitt, consulted; help appreciated * Given Lasix 40mg IV x2, asa 325mg PO x1 in ED * Nitrostat 0.4 SL Q5m PRN * Started Coreg 6.25mg PO BID, Hydralazine 25mg PO TID, Aspirin 81mg PO daily, Crestor 10mg PO HS * Continue to monitor vitals * D-dimer: 395 * BNP 14341 * Troponinx3: 0.79, 0.0.083, #3 pending * EKGs: LVH, Twave inversions, ST depressions; f/u official report * CXR: no active disease * ECHO: f/u report * ECHO (01/2017): mild-moderate LVH, global hypokinesis of LV; severely impaired systolic and diastolic dysfunction; EF 25-30%; RV mildly dilated; biatrial enlarged; moderate pulmonary HTN; trace pericardial effusion. Status: Acute Priority: High (2) Dyspnea Assessment and Plan: Rule out PE; likley secondary to CHF, fluid overload * [place] risk: 4.5, r/o DVT * GIven lovenox 120mg SC x1 * D-dimer: 395 * BNP 06563 * Place on BiPAP * Given Lasix 40mg IV x2 * Started Lasix 40mg IV Q12 * CXR: no active disease * VQ scan: low probability of PE * Venous dopplers: f/u results * ECHO: f/u report * ECHO (01/2017): mild-moderate LVH, global hypokinesis of LV; severely impaired systolic and diastolic dysfunction; EF 25-30%; RV mildly dilated; biatrial enlarged; moderate pulmonary HTN; trace pericardial effusion. Status: Acute (3) Hypertensive urgency Assessment and Plan: At admission, 172/118, 166/113, 183/138 * In the ED, patient was given ASA 325mg PO, Labetalol 20mg IV once * Given Lasix 40mg IV x2 * Nitrostat 0.4 SL Q5m PRN * Started Coreg 6.25mg PO BID, Hydralazine 25mg PO TID * Continue to monitor vitals * Cardiology, Dr. Dewitt, consulted; help appreciated Status: Acute (4) Renal insufficiency Assessment and Plan: BUN/Cr 28/1.8 at admission * Bladder scan * Renal U/S * Continue to monitor H/H * Monitor intake/output Status: Acute (5) Morbidly obese Assessment and Plan: * A1c: f/u * Lipid panel: f/u * TSH: f/u Status: Acute (6) Tobacco use Assessment and Plan: Nicoderm patch Status: Acute (7) Prophylactic measure Assessment and Plan: Lovenox 120mg SCx1 Lovenox 30mg SC daily C/I SCDs due to LE edema Pepcid 20mg PO daily Intake and output Monitor daily weight Telemetry Status: Acute
[2017-07-19] MEDS ORDERED: Albuterol-Ipratrop 3 mg / 0.5 (3 ml) UD INH STA (12:02)
[2017-07-19] MEDS ORDERED: Albuterol-Ipratrop 3 mg / 0.5 (3 ml) UD ONE (12:09)
[2017-07-19] MEDS ORDERED: Labetalol 25mg/5ml Syringe IVP ONE (12:42)
[2017-07-19] MEDS ORDERED: Labetalol 25mg/5ml Syringe ONE (12:52)
[2017-07-19 13:12] LABS: ABG ALLEN TEST YES; ARTERIAL BLOOD GAS HCO3 28.8 mmol/L (21-28); ARTERIAL BLOOD GAS PCO2 40 mm/Hg (35-45); ARTERIAL BLOOD GAS PH 7.47 (7.35-7.45); ARTERIAL BLOOD GAS PO2 75 mm/Hg (80-100); ARTERIAL BLOOD GAS TCO2 30.3 mmol/L (22-28)
[2017-07-19 14:28] LABS: CK-MB 2.25 ng/mL (0.0-3.38); TROPONIN I 0.083 ng/mL (0.00-0.120)
--- NOTE | 2017-07-19 19:56 | NM ---
EXAM: NM Lung Perfusion and Ventilation Scan CLINICAL HISTORY: 42 years old, male; Pain and signs and symptoms; Cough and shortness of breath and other: Lower extremity edema for the past week; Symptoms not specified; Chest pain; Other: With exertion; Patient HX: Chest x-ray done 07/19/2017 sent for correlation. Relevant emergency department additional clinical information sent for clinical correlation. ; Additional info: Rule out pe, pulm HTN, elevated d-dimer TECHNIQUE: Nuclear Medicine ventilation and perfusion images of the lungs were obtained in multiple projections following inhalation of 16.6 mCi of Xenon-133 gas and injection of 4.2 mCi of Tc99m MAA. COMPARISON: No relevant prior studies available. FINDINGS: Ventilation: No moderate or large ventilation defects. Perfusion: No moderate or large perfusion defects. IMPRESSION: Low probability for pulmonary embolism.
[2017-07-19 20:56] LABS: TROPONIN I 0.101 ng/mL (0.00-0.120)
[2017-07-19 20:57] LABS: CK-MB 1.77 ng/mL (0.0-3.38)
[2017-07-19 22:50] LABS: SQUAMOUS EPITHIAL < 1 /hpf (0-5); URINE BILIRUBIN NEGATIVE (NEGATIVE); URINE BLOOD NEGATIVE (NEGATIVE); URINE CLARITY Clear (Clear); URINE COLOR Yellow (YELLOW); URINE GLUCOSE (UA) NORMAL (Normal); URINE LEUKOCYTE ESTERASE NEG Leu/uL (Negative); URINE NITRATE NEGATIVE (NEGATIVE); URINE PROTEIN 1+ mg/dL (NEGATIVE); URINE UROBILINOGEN NORMAL mg/dL (0.2-1.0)
[2017-07-20 07:36] LABS: BASO % 1.1 % (0.0-2.0); EOS % 0.3 % (0.0-4.0); LYMPH # 0.3 K/uL (1.0-4.3); LYMPH % 7.1 % (20.0-40.0); MEAN CELL VOLUME 80.8 fL (80.0-94.0); MEAN CORPUSCULAR HEMOGLOBIN 26.5 pg (27.0-31.0); MEAN CORPUSCULAR HGB CONC 32.8 g/dL (33.0-37.0); MEAN PLATELET VOLUME 7.8 fL (7.2-11.7); MONO # 0.8 K/uL (0.0-0.8); MONO % 18.4 % (0.0-10.0); NEUT # 3.2 K/uL (1.8-7.0); NEUT % 73.1 % (50.0-75.0); NRBC % 0.1 % (0.0-2.0); PLATELET COUNT 164 K/uL (130-400); RBC 4.92 Mil/uL (4.40-5.90); RED CELL DISTRIBUTION WIDTH 14.8 % (11.5-14.5); WHITE BLOOD COUNT 4.4 K/uL (4.8-10.8)
[2017-07-20 08:20] LABS: ALB/GLOB RATIO 1.2 (1.0-2.1); ALBUMIN 3.5 g/dL (3.5-5.0); CALCIUM 8.1 mg/dl (8.6-10.4)
[2017-07-20 09:17] LABS: ANISOCYTOSIS SLIGHT; BANDS 1 % (0-2); BASOPHIL 1 % (0-2); LYMPHOCYTE 7 % (20-40); MONOCYTE 12 % (0-10); NEUTROPHIL 79 % (50-75); PLATELET ESTIMATE NORMAL (NORMAL); TOTAL CELLS COUNTED 100
[2017-07-20] MEDS: Potassium Chloride 20 mEq ER Tab PO SCH ×3 (09:56→13:36)
[2017-07-20] MEDS: Enoxaparin 40 mg Syringe SC SCH (09:57)
[2017-07-20] MEDS ORDERED: Potassium Chloride 20 mEq ER Tab PO SCH (10:00)
[2017-07-20 12:22] LABS: MAGNESIUM 1.5 mg/dL (1.6-2.3)
--- NOTE | 2017-07-20 12:22 | US ---
PROCEDURE: Ultrasound of the Kidneys HISTORY: acute renal insufficiency COMPARISON: None available. TECHNIQUE: Sonogram of the kidneys. . Study is limited due to large body habitus and as a result, the kidneys are not well delineated on this study FINDINGS: RIGHT KIDNEY: Right kidney measures approximately 12.1 x 4.5 x 4.9 cm. Normal in size, contour and echogenicity. No stone, solid mass lesion or hydronephrosis visualized. LEFT KIDNEY: Left kidney measures approximately 11.3 x 5.5 x 4.6 cm. Normal in size, contour and echogenicity. No stone, solid mass lesion or hydronephrosis visualized. OTHER FINDINGS: None. IMPRESSION: Limited study due to large body habitus. No definitive shadowing calculi hydronephrosis. No obvious masses seen.
[2017-07-20] MEDS ORDERED: Magnesium Sulfate 1 gm in D5W 1 GM/100 ML BAG IVPB ONE (15:42)
--- NOTE | 2017-07-20 17:18 | CP.PCM.PN ---
<ShantLyric - Last Filed: 07/20/17 17:14> Subjective - Date & Time of Evaluation Date of Evaluation: 07/20/17 Time of Evaluation: 08:00 - Subjective Subjective: Patient was seen and examined at bedside this morning. Patient stated his SOB has improved from admission. Patient denied palpations, chest pain, abdominal pain, N/V. He is also complaining of a cough. Patient states he urinated 4-5 times a night. He has no other complaints at this time. No acute events overnight. Objective - Vital Signs/Intake and Output Vital Signs (last 24 hours): Temp Pulse Resp BP Pulse Ox 98.3 F 100 H 20 160/100 H 98 07/20/17 04:00 07/20/17 04:00 07/20/17 04:00 07/20/17 09:57 07/20/17 04:00 Intake and Output: 07/20/17 07/20/17 06:59 18:59 Intake Total 720 Output Total 2100 Balance -1380 - Medications Medications: Current Medications Aspirin (Ecotrin) 81 mg PO DAILY [facility] Last Admin: 07/20/17 09:56 Dose: 81 mg Carvedilol (Coreg) 12.5 mg PO BID [facility] Enoxaparin Sodium (Lovenox) 30 mg SC DAILY [facility] Last Admin: 07/20/17 09:57 Dose: 30 mg Famotidine (Pepcid) 20 mg PO DAILY [facility] Last Admin: 07/20/17 09:56 Dose: 20 mg Furosemide (Lasix) 40 mg IVP Q8H [facility] Hydralazine HCl (Apresoline) 25 mg PO TID [facility] Last Admin: 07/20/17 13:36 Dose: 25 mg Nicotine (Nicoderm Cq) 1 patch TD DAILY [facility] Last Admin: 07/20/17 11:29 Dose: 1 patch Nitroglycerin (Nitrostat Sl Tab) 0.4 mg SL Q5M PRN PRN Reason: Pain, severe (8-10) Promethazine HCl (Phenergan Syrup) 12.5 mg PO Q6 PRN PRN Reason: Cough Rosuvastatin Calcium (Crestor) 10 mg PO HS [facility] Last Admin: 07/19/17 21:43 Dose: 10 mg Spironolactone (Aldactone) 25 mg PO BID [facility] - Labs Labs: 07/20/17 07:23 07/20/17 07:23 - Constitutional Appears: Non-toxic, No Acute Distress - Head Exam Head Exam: NORMAL INSPECTION - Eye Exam Eye Exam: EOMI - ENT Exam ENT Exam: Mucous Membranes Moist - Respiratory Exam Respiratory Exam: Rales, NORMAL BREATHING PATTERN. absent: Accessory Muscle Use , Respiratory Distress - Cardiovascular Exam Cardiovascular Exam: REGULAR RHYTHM, +S1, +S2 - GI/Abdominal Exam GI & Abdominal Exam: Soft, Normal Bowel Sounds. absent: Distended, Firm, Guarding, Tenderness - Exam Additional comments: scrotum swollen - Extremities Exam Extremities Exam: Normal Inspection, Pedal Edema. absent: Calf Tenderness Additional comments: 2+ edema LE - Back Exam Back Exam: NORMAL INSPECTION. absent: CVA tenderness (L), CVA tenderness (R), paraspinal tenderness - Neurological Exam Neurological Exam: Alert, Awake, CN II-XII Intact, Oriented x3 Neuro motor strength exam: Left Upper Extremity: 5, Right Upper Extremity: 5, Left Lower Extremity: 5, Right Lower Extremity: 5 - Psychiatric Exam Psychiatric exam: Normal Affect, Normal Mood - Skin Skin Exam: Dry, Intact, Normal Color, Warm Assessment and Plan - Assessment and Plan (Free Text) Assessment: Acute systolic (congestive) heart failure Assessment and Plan: Monitor on telemetry * Cardiology, Dr. Dewitt, consulted; help appreciated * Aspirin 81 mg PO daily * Nitrostat 0.4 SL Q5m PRN * Started Coreg 12.5mg PO BID * Hydralazine 25mg PO TID * Crestor 10mg PO HS * Start Aldactone 25mg PO BID * D-dimer: 395 * BNP 55343 * Troponinx3: 0.79, 0.0.083, #3 pending * EKGs: LVH, Twave inversions, ST depressions; f/u official report * CXR: no active disease * ECHO: f/u report * ECHO (01/2017): mild-moderate LVH, global hypokinesis of LV; severely impaired systolic and diastolic dysfunction; EF 25-30%; RV mildly dilated; biatrial enlarged; moderate pulmonary HTN; trace pericardial effusion. Status: Acute Priority: High Dyspnea Assessment and Plan: Rule out PE; likley secondary to CHF, fluid overload * Wells risk: 4.5, r/o DVT * GIven lovenox 120mg SC x1 * D-dimer: 395 * BNP 42864 * Place on BiPAP * Lasix 40mg IV TID * CXR: no active disease * VQ scan: low probability of PE * Venous dopplers: f/u results * Phenergan prn cough * ECHO: f/u report * ECHO (01/2017): mild-moderate LVH, global hypokinesis of LV; severely impaired systolic and diastolic dysfunction; EF 25-30%; RV mildly dilated; biatrial enlarged; moderate pulmonary HTN; trace pericardial effusion. Status: Acute Hypertensive urgency Assessment and Plan: At admission, 172/118, 166/113, 183/138 * Coreg 12.5mg PO BID, Hydralazine 25mg PO TID * Continue to monitor vitals * Cardiology, Dr. Dewitt, consulted; help appreciated Status: Acute Renal insufficiency Assessment and Plan: Dr. Chang consulted, help appreciated BUN/Cr 28/1.8 at admission * Bladder scan * Renal U/S - normal * Continue to monitor H/H * Monitor intake/output Status: Acute Morbidly obese Assessment and Plan: * A1c: f/u * Tchol 133, Trig 64, LDL 77, HDL 37 * TSH 2.91 Status: Acute Hypokalemia Assessment and Plan: * K 2.9 - 40meq PO given x 3 doses - f/u repeat K level * Mg 1.5 - 2 grams IVPB given Status: Acute Hypomagnesia Assessment and Plan: * Mg 1.5 - 2 grams IVPB given Status: Acute Tobacco use Assessment and Plan: Nicoderm patch Status: Acute Prophylactic measure Assessment and Plan: Lovenox 30mg SC daily C/I SCDs due to LE edema Pepcid 20mg PO daily Intake and output Monitor daily weight Telemetry Status: Acute <Dali Khan V - Last Filed: 07/21/17 22:19> Objective - Vital Signs/Intake and Output Vital Signs (last 24 hours): Temp Pulse Resp BP Pulse Ox 98.6 F 86 20 123/85 100 07/21/17 15:00 07/21/17 18:15 07/21/17 15:00 07/21/17 21:33 07/21/17 15:00 - Medications Medications: Current Medications Aspirin (Ecotrin) 81 mg PO DAILY [facility] Last Admin: 07/21/17 10:01 Dose: 81 mg Carvedilol (Coreg) 12.5 mg PO BID [facility] Last Admin: 07/21/17 17:30 Dose: 12.5 mg Enoxaparin Sodium (Lovenox) 30 mg SC DAILY [facility] Last Admin: 07/21/17 10:02 Dose: 30 mg Famotidine (Pepcid) 20 mg PO DAILY [facility] Last Admin: 07/20/17 09:56 Dose: 20 mg Fluticasone Propionate (Flonase) 0 spr TRISTEN DAILY [facility] Last Admin: 07/21/17 17:00 Dose: 1 spr Furosemide (Lasix) 40 mg IVP Q8H [facility] Last Admin: 07/21/17 21:33 Dose: 40 mg Guaifenesin/Codeine Phosphate (Guaifenesin/Codeine) 5 ml PO Q6H PRN PRN Reason: Cough and congestion Last Admin: 07/21/17 21:42 Dose: 5 ml Hydralazine HCl (Apresoline) 25 mg PO TID [facility] Last Admin: 07/21/17 17:30 Dose: 25 mg Nicotine (Nicoderm Cq) 1 patch TD DAILY [facility] Last Admin: 07/20/17 11:29 Dose: 1 patch Nitroglycerin (Nitrostat Sl Tab) 0.4 mg SL Q5M PRN PRN Reason: Pain, severe (8-10) Rosuvastatin Calcium (Crestor) 10 mg PO HS [facility] Last Admin: 07/21/17 21:33 Dose: 10 mg Spironolactone (Aldactone) 25 mg PO BID [facility] Last Admin: 07/21/17 17:30 Dose: 25 mg - Labs Labs: 07/21/17 06:34 07/21/17 06:34 Assessment and Plan (1) Hypertensive urgency Status: Acute (2) Acute systolic (congestive) heart failure Status: Acute (3) Dyspnea Status: Acute (4) Renal insufficiency Status: Acute (5) Morbidly obese Status: Acute (6) Elevated d-dimer Status: Acute (7) Tobacco use Status: Acute (8) Pulmonary hypertension Status: Acute (9) Prophylactic measure Status: Acute Attending/Attestation - Attestation I have personally seen and examined this patient.: Yes I have fully participated in the care of the patient.: Yes I have reviewed all pertinent clinical information, including history, physical exam and plan: Yes Notes (Text): This is late computer entry for 07/20/17. Patient seen, examined and case discussed with day-time resident. Patient seen during rounds. Patient reports he is feeling better but reports he is coughing alot. Patient reports he has urinated about 5-6 times using the urinal at bedside. Patient appears less edematous bilateral lower extremities. Patient's abdomen is less edematous compared to yesterday. On the monitor, patient's heart rate is controlled and blood pressure has improved. Will continue to optimize blood pressure control Cardiology on consult, resident has spoken with cardiology for consideration for cardiac cath, recommends for nephrology Nephrology on consult-->recommended to increase Lasix 40mg IV Q8H, add on Aldactone, and further workup Assessment/Plan (1) Hypertensive urgency Status: Acute Comment: * Cardiology (Dr. Dewitt) on case-->help appreciated * In the ED, given Aspirin 325mg PO X1, Labetolol 20mg IVP X1, Lasix 40mg IV X2 doses. * Monitor on telemetry * Short term goal: reduce SBP~160 and~<100 for the first 24 hours. * Increase Coreg 12.5mg PO BID * Start Lasix 40mg IV Q8H * Start Hydralazine 25mg PO TID * Patient hasn't been been on anti-hypertensives for quite some time. 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 Dewitt) on the case-->help appreciated. * Elevated probnp on admission will trend probnp * In the ED, given Aspirin 325mg PO X1, Labetolol 20mg IVP, Lasix 40mg IV X2 doses on 07/19/17. * MARIO and EKG Q6H X3. * Start Lasix 40mg IV Q8H. * Start Coreg 6.25mg PO BID. * Start Hydralazine 25mg PO TID * Nitrosublingual PRN for chest pain. * Start Crestor 10mg POqHS. * Intake and Output. * Measure Weight Daily. * 1 Liter Fluid Restriction. * Echocardiogram (01/2017); mild to moderate left ventricular hypertrophy. Global hypokinesis of the left ventricle. Systolic function is severely impaired. EF: 25-30%. Severe diastolic dysfunction. Restrictive diastolic dysfunction. Right ventricle mildly dilated with systolic function, Mildly to refused. Moderate b-atrial enlargement. Right ventricular systolic pressure 40- 50mmg HG w moderate pulmonary hypertension. Trace pericardial effusion. * Repeat echocardiogram order * EKG significant for LVH, T wave inversions, ST depressions (3) Dyspnea Status: Acute Comment: * Likely secondary to decompensated CHF, pulmonary hypertension. * Elevated D-dimer. * V/Q scan (07/19/17): low probability of pulmonary embolism * Echocardiogram (01/2017); mild to moderate left ventricular hypertrophy. Global hypokinesis of the left ventricle. Systolic function is severely impaired. EF: 25-30%. Severe diastolic dysfunction. Restrictive diastolic dysfunction. Right ventricle mildly dilated with systolic function, Mildly to refused. Moderate b-atrial enlargement. Right ventricular systolic pressure 40- 50mmg HG w moderate pulmonary hypertension. Trace pericardial effusion. * Chest xray (07/19/17): No active disease. Cardiomegaly. (4) Renal insufficiency Status: Acute Comment: * Nephrology (Dr. Chang) on the case-->help appreciated * Bladder scan: 146 in the ED. * Patient is urinating well. * Monitor intake and output. * Renal US (07/20/17): limited study due to large body habitus. No definitive shadowing calculi hydronephrosis. No obvious masses seen. * Recommend to start Aldactone * Increase Lasix 40mg IVQ8H (5) Morbidly obese Status: Chronic Comment: * a1c: pending * TSH: 2.91 * Lipid panel: T, Cholestrol: 133, LDL: 77, HDL: 37 (6) Elevated d-dimer Status: Acute Comment: * Likely secondary to decompensated CHF, pulmonary hypertension. * Elevated D-dimer. * Pending venous b/l lower extremities * V/Q scan (07/19/17): low probability of pulmonary embolism * Echocardiogram (01/2017); mild to moderate left ventricular hypertrophy. Global hypokinesis of the left ventricle. Systolic function is severely impaired. EF: 25-30%. Severe diastolic dysfunction. Restrictive diastolic dysfunction. Right ventricle mildly dilated with systolic function, Mildly to refused. Moderate b-atrial enlargement. Right ventricular systolic pressure 40- 50mmg HG w moderate pulmonary hypertension. Trace pericardial effusion. * Chest xray (07/19/17): No active disease. Cardiomegaly. (7) Tobacco use Assessment and Plan: * Nicotone patch * 1/2 PPD X20 years Status: Chronic (8) Pulmonary hypertension Status: Chronic Comment: * Echocardiogram (01/2017); mild to moderate left ventricular hypertrophy. Global hypokinesis of the left ventricle. Systolic function is severely impaired. EF: 25-30%. Severe diastolic dysfunction. Restrictive diastolic dysfunction. Right ventricle mildly dilated with systolic function, Mildly to refused. Moderate b-atrial enlargement. Right ventricular systolic pressure 40- 50mmg HG w moderate pulmonary hypertension. Trace pericardial effusion. V/Q Scan to rule out PE * ABG: mild hypoxia, no CO2 retention (9) Prophylactic measure Assessment and Plan: * Lovenox 120mg subq X1 on 07/19/17-->switch to renal dose Lovenox 30mg subqdaily for DVT ppx * Pepcid 20mg PO daily * intake and output * monitor daily weight * telemetry Status: Acute
[2017-07-20] MEDS ORDERED: Magnesium Sulfate 1 gm in D5W 1 GM/100 ML BAG IVPB SCH ×2 (17:45→18:00)
[2017-07-20] MEDS: Promethazine 12.5 mg/10 ml Syrup PO PRN ×2 (18:05→23:57)
[2017-07-20 20:04] LABS: MAGNESIUM 2.1 mg/dL (1.6-2.3)
[2017-07-20] MEDS ORDERED: Potassium Chloride 20 mEq ER Tab PO ONE (20:41)
--- NOTE | 2017-07-21 | CON ---
DATE: 07/20/2017 NEPHROLOGY CONSULTATION HISTORY OF PRESENT ILLNESS: This is a 42-year-old male with past medical history of CHF with severe systolic dysfunction, hypertension, morbid obesity, LAZARO, presented to ED yesterday with shortness of breath, found to have acute kidney injury, Nephrology is being consulted for renal insufficiency. The patient reports increased shortness of breath since the past one month; did not come into the ED until yesterday due to work reason; can only walk about 20 feet before getting short of breath; reports his baseline weight of 265 pounds with increasing weight lately; increasing abdominal girth and lower leg edema. The patient, otherwise, denies any chest pain. He does get occasional palpitations; denies any difficulty urinating but does have scrotal edema. The patient has not been on any medications and only got some of his prescriptions filled following his admission for acute decompensated CHF in 01/2017. PAST MEDICAL HISTORY: As above, CHF with EF of 25%. FAMILY HISTORY: Unknown. SOCIAL HISTORY: Current smoker, half pack per day. REVIEW OF SYSTEMS: CONSTITUTIONAL: Eating well. HEENT: Reports cough and runny nose lately. Denies any visual impairment. Denies any difficulty swallowing. RESPIRATORY: Cough. Reports current upper respiratory type symptoms. CARDIOVASCULAR: As per HPI. GI: No nausea, vomiting or diarrhea. : No difficulty with urinary stream. He does have scrotal edema. PSYCHIATRIC: Denies depression. NEURO: Denies any numbness in feet. SKIN: Reports increased erythema of bilateral lower legs. PHYSICAL EXAMINATION: VITAL SIGNS: This morning, blood pressure 160/100, previous vitals 147/98, heart rate 100, respirations 20, temperature 98.3, and O2 saturation 98% on 3 liters via nasal cannula. GENERAL: Mild respiratory distress, otherwise able to converse coherently in full sentences. HEENT: Moist mucous membranes, nonicteric. NECK: Elevated JVD up to earlobes. RESPIRATORY: Bilateral inspiratory and expiratory wheezes heard. CARDIOVASCULAR: Heart sounds S1 and S2 normal. No murmurs, no gallops, no rubs. GASTROINTESTINAL: Abdomen is obese. Otherwise, soft, nontender, nondistended. GENITOURINARY: No bladder distention obvious. EXTREMITIES: 3+ bilateral lower leg edema with edema extending to lower abdominal wall/lower back. SKIN: Mild erythematous bilateral lower extremities. Otherwise, no cyanosis. Distal lower extremity is warm. NEURO: 5/5 motor in bilateral upper and lower extremities. PSYCHIATRIC: Normal mood and normal affect. LABORATORY DATA: CBC; WBC 4.4, hemoglobin 13.0, hematocrit 39.8, platelets 164. Chemistry panel; sodium 136, potassium 2.9, chloride 95, bicarbonate 31, BUN 24, creatinine 1.7 increased from 1.4 in 01/2017. Glucose 107, calcium 8.1, albumin 3.5, TSH 2.9. ABG from yesterday pH is 7.47, pCO2 of 40, CO2 of 75 on 21% FiO2. Urine studies, UA 1+ protein, 6 to 10 hyaline casts. Chest x-ray from yesterday directly visualized showing some increased pulmonary vascular congestion. Echo from 01/2017 with a report mentioning severe systolic dysfunction with EF of 25% to 30%, severe diastolic dysfunction, RV mildly dilated with systolic dysfunction, mildly reduced RV systolic pressure of 40 to 50 mmHg compatible with moderate pulmonary hypertension. ASSESSMENT AND PLAN: 1. Acute kidney injury on chronic kidney disease, etiology of chronic kidney disease is unclear. At this point, the patient does have 1+ proteinuria on UA on current admission as well as previous admission; secondary focal segmental glomerulosclerosis in the setting of morbid obesity is certainly a possibility, but we will first need to rule out other causes of proteinuric kidney disease. For now, the patient has been showing improvement with diuresis, which indicates that he has a cardiorenal element due to his renal insufficiency; therefore, we should continue to diurese aggressively to decrease venous congestion and thereby improve renal function. We will increase IV Lasix dose 40 mg to q.8 hours. Awaiting reports from renal ultrasound. Awaiting urine studies (random urine for microalbumin, protein and creatinine). We will check C3 and C4. 2. Acute decompensated systolic congestive heart failure, severe decompensation in the setting of medication noncompliance, right ventricular dysfunction previously reported may simply be due to overall severe volume overload; continue aggressive diuresis as above. We will add Aldactone 25 mg b.i.d. 3. Hypokalemia in the setting of aggressive diuresis, replenish aggressively with goal to keep potassium level around 4.0. 4. Hypertensive emergency in the setting of medication noncompliance and severe volume overload. The patient is currently on hydralazine 25 mg t.i.d., increased dose of Coreg 12.5 mg b.i.d. and on diuretics which is being increased as above. Checking plasma aldosterone and renin levels to look for evidence of secondary causes of hypertension. 5. Morbid obesity, which is certainly contributing to the patient's overall compromised health. Once stabilized, needs to be on aggressive weight reduction program. Jono Chang MD
[2017-07-21] MEDS: Promethazine 12.5 mg/10 ml Syrup PO PRN (05:38)
[2017-07-21 06:41] LABS: BASO # 0.1 K/uL (0.0-0.2); EOS % 0.6 % (0.0-4.0); LYMPH # 0.6 K/uL (1.0-4.3); LYMPH % 14.5 % (20.0-40.0); MEAN CELL VOLUME 79.8 fL (80.0-94.0); MEAN CORPUSCULAR HEMOGLOBIN 26.7 pg (27.0-31.0); MEAN CORPUSCULAR HGB CONC 33.5 g/dL (33.0-37.0); MEAN PLATELET VOLUME 7.8 fL (7.2-11.7); MONO # 0.8 K/uL (0.0-0.8); MONO % 21.9 % (0.0-10.0); NEUT # 2.4 K/uL (1.8-7.0); NRBC % 0.1 % (0.0-2.0); PLATELET COUNT 169 K/uL (130-400); RBC 4.88 Mil/uL (4.40-5.90); RED CELL DISTRIBUTION WIDTH 15.2 % (11.5-14.5); WHITE BLOOD COUNT 3.9 K/uL (4.8-10.8)
[2017-07-21 07:00] LABS: ALB/GLOB RATIO 1.2 (1.0-2.1); ALBUMIN 3.4 g/dL (3.5-5.0); CALCIUM 7.5 mg/dl (8.6-10.4); MAGNESIUM 1.9 mg/dL (1.6-2.3)
[2017-07-21] MEDS ORDERED: Potassium Chloride 20 mEq ER Tab PO ONE ×2 (07:43→09:15)
--- NOTE | 2017-07-21 07:45 | CP.PCM.PN ---
Subjective - Date & Time of Evaluation Date of Evaluation: 07/21/17 Time of Evaluation: 07:00 - Subjective Subjective: Medicine Progress Note: Patient was seen and examined at bedside in the AM. Patient states he continues to have a cough but does not look at what color the phlegm is. He states he has not been using the breathing treatments as it bothers him when he coughs. He states he has not used the nasal canula because that also bothers his nasal congestion. He denies any other complaints at this time. Objective - Vital Signs/Intake and Output Vital Signs (last 24 hours): Temp Pulse Resp BP Pulse Ox 98.1 F 76 20 138/86 98 07/21/17 04:00 07/21/17 04:00 07/21/17 04:00 07/21/17 05:15 07/21/17 04:00 Intake and Output: 07/21/17 07/21/17 06:59 18:59 Intake Total 880 Output Total 2350 Balance -1470 - Medications Medications: Current Medications Aspirin (Ecotrin) 81 mg PO DAILY [facility] Last Admin: 07/20/17 09:56 Dose: 81 mg Carvedilol (Coreg) 12.5 mg PO BID [facility] Last Admin: 07/20/17 17:48 Dose: 12.5 mg Enoxaparin Sodium (Lovenox) 30 mg SC DAILY [facility] Last Admin: 07/20/17 09:57 Dose: 30 mg Famotidine (Pepcid) 20 mg PO DAILY [facility] Last Admin: 07/20/17 09:56 Dose: 20 mg Furosemide (Lasix) 40 mg IVP Q8H [facility] Last Admin: 07/21/17 05:15 Dose: 40 mg Hydralazine HCl (Apresoline) 25 mg PO TID [facility] Last Admin: 07/20/17 17:48 Dose: 25 mg Nicotine (Nicoderm Cq) 1 patch TD DAILY [facility] Last Admin: 07/20/17 11:29 Dose: 1 patch Nitroglycerin (Nitrostat Sl Tab) 0.4 mg SL Q5M PRN PRN Reason: Pain, severe (8-10) Potassium Chloride (K-Dur 20 Meq Er Tab) 20 meq PO ONCE ONE Stop: 07/21/17 07:44 Promethazine HCl (Phenergan Syrup) 12.5 mg PO Q6 PRN PRN Reason: Cough Last Admin: 07/21/17 05:38 Dose: 12.5 mg Rosuvastatin Calcium (Crestor) 10 mg PO HS [facility] Last Admin: 07/20/17 21:44 Dose: 10 mg Spironolactone (Aldactone) 25 mg PO BID [facility] Last Admin: 07/20/17 17:48 Dose: 25 mg - Labs Labs: 07/21/17 06:34 07/21/17 06:34 - Constitutional Appears: No Acute Distress - Head Exam Head Exam: NORMAL INSPECTION - Eye Exam Eye Exam: EOMI, Normal appearance - ENT Exam ENT Exam: Mucous Membranes Moist - Respiratory Exam Respiratory Exam: Wheezes, NORMAL BREATHING PATTERN. absent: Rales, Rhonchi, Stridor - Cardiovascular Exam Cardiovascular Exam: REGULAR RHYTHM, +S1, +S2 - GI/Abdominal Exam GI & Abdominal Exam: Soft, Normal Bowel Sounds. absent: Tenderness - Extremities Exam Extremities Exam: Pedal Edema (+2 bilateral lower extremity edema ) - Neurological Exam Neurological Exam: Alert, Awake, Oriented x3 - Psychiatric Exam Psychiatric exam: Normal Affect, Normal Mood - Skin Skin Exam: Erythema (bilateral lower extremities ) Assessment and Plan - Assessment and Plan (Free Text) Assessment: 1.) Acute systolic (congestive) heart failure Monitor on telemetry Cardiology Consult: Dr. Dewitt --> help appreciated BNP 98637 Troponinx3: 0.79, 0.0.083, 0.1010 - Images * EKGs: LVH, Twave inversions, ST depressions; f/u official report * CXR: no active disease * ECHO: f/u report * ECHO (01/2017): mild-moderate LVH, global hypokinesis of LV; severely impaired systolic and diastolic dysfunction; EF 25-30%; RV mildly dilated; biatrial enlarged; moderate pulmonary HTN; trace pericardial effusion. - Medications: * Aspirin 81 mg PO daily * Nitrostat 0.4 SL Q5m PRN * Coreg 12.5mg PO BID * Hydralazine 25mg PO TID * Crestor 10mg PO HS * Aldactone 25mg PO BID 2.) Dyspnea Possibly Consult Pulm Rule out PE; likley secondary to CHF, fluid overload Wells risk: 4.5, r/o DVT * Given lovenox 120mg SC x1 - D-dimer: 395 - BNP 41894 - Place on BiPAP - Images: * CXR: no active disease * VQ scan: low probability of PE * Venous dopplers: negative * ECHO (07/20/17): LA and LV dilated; LV EF 30%; LV filling pressure probably elevated * ECHO (01/2017): mild-moderate LVH, global hypokinesis of LV; severely impaired systolic and diastolic dysfunction; EF 25-30%; RV mildly dilated; biatrial enlarged; moderate pulmonary HTN; trace pericardial effusion. - Medications: * Lasix 40mg IV q8h * Phenergan prn cough * Spiriva 3.) Hypertensive urgency At admission, 172/118, 166/113, 183/138 Cardiology consult: Dr. Dewitt --> help appreciated - Medications: * Coreg 12.5mg PO BID, * Hydralazine 25mg PO TID - Continue to monitor vitals 4.) Renal insufficiency Nephrology Consult: Dr. Chang --> help appreciated BUN/Cr 28/1.8 at admission * Bladder scan * Renal U/S - normal * Continue to monitor H/H * Monitor intake/output 5.) Morbidly obese - A1c: 5.9 - Tchol 133, Trig 64, LDL 77, HDL 37 - TSH 2.91 6.) Hypokalemia - K 3.5 - Repleated - Continue to Monitor 7.) Hypomagnesia - Mg 1.9 (WNL) - Continue to Monitor 8.) Tobacco use - Nicoderm patch 9.) Prophylactic measure - Lovenox 30mg SC daily - C/I SCDs due to LE edema - Pepcid 20mg PO daily - Intake and output - Monitor daily weight Disposition: Possible Cath on Friday07/23/[address] Fercho Mckeon PGY-1
[2017-07-21 08:51] LABS: BASOPHIL 1 % (0-2); LYMPHOCYTE 13 % (20-40); MONOCYTE 19 % (0-10); TOTAL CELLS COUNTED 100
[2017-07-21 08:52] LABS: NEUTROPHIL 67 % (50-75); PLATELET ESTIMATE NORMAL (NORMAL)
[2017-07-21] MEDS: Enoxaparin 40 mg Syringe SC SCH (10:02)
--- NOTE | 2017-07-21 11:50 | CP.PCM.CON ---
<Robin Soriano - Last Filed: 07/21/17 16:11> History of Present Illness - History of Present Illness History of Present Illness: Cardiology Consult Note for Dr. Dewitt CC: SOB and LE swelling Pt is a 42 yo M with PMH of LAZARO, HTN and chronic CHF with reduced EF presents to due to increased SOB and LE swelling. Pt states that he was admitted about one year ago with similar symptoms. At that time, echo was performed and showed EF of 25-30%. Pt was stabilized and discharged with several medications. However, patient is unable to recall which medications he was given and admits to being non-compliant with medications due to cost. Pt states that he is only able to walk 1 block before becoming short of breath and requires 3 pillows when sleeping at night. Pt also complaining of dry cough that began after admission and occurs when he lies supine. Pt states that swelling in his legs has worsened recently and believes he may have gained 20-30 lbs due to edema. Pt denied CP, palpitations, n/v/d, abdominal pain, fever, chills, DOMINGUEZ, or dizziness. PMH: LAZARO, HTN, chronic CHF with reduced EG Surg: Appendectomy All: NKDA FH: Non-contributory SH: Admits to 1/2ppd for 20 years, social EtOH use; Denied illicit drug use Review of Systems - Review of Systems Review of Systems: 12 point ROS reviewed and is negative other than what is stated in HPI. Past Patient History - Past Medical History & Family History Past Medical History?: No - Past Social History Smoking Status: Heavy Smoker > 10 Cigarettes Daily - CARDIAC Hx Congestive Heart Failure: Yes - PULMONARY Hx Respiratory Disorders: Yes Hx Bronchitis: Yes - NEUROLOGICAL Hx Neurological Disorder: No - HEENT Hx HEENT Problems: No - RENAL Hx Chronic Kidney Disease: No - ENDOCRINE/METABOLIC Hx Endocrine Disorders: No - HEMATOLOGICAL/ONCOLOGICAL Hx Blood Disorders: No - INTEGUMENTARY Hx Dermatological Problems: No - MUSCULOSKELETAL/RHEUMATOLOGICAL Hx Falls: No - GASTROINTESTINAL Hx Gastrointestinal Disorders: No - PSYCHIATRIC Hx Substance Use: No - SURGICAL HISTORY Hx Appendectomy: Yes - ANESTHESIA Hx Anesthesia: Yes Hx Anesthesia Reactions: No Meds Allergies/Adverse Reactions: Allergies Allergy/AdvReac Type Severity Reaction Status Date / Time No Known Allergies Allergy Verified 07/19/17 08:17 - Medications Medications: Current Medications Aspirin (Ecotrin) 81 mg PO DAILY [facility] Last Admin: 07/21/17 10:01 Dose: 81 mg Carvedilol (Coreg) 12.5 mg PO BID [facility] Last Admin: 07/21/17 10:00 Dose: 12.5 mg Enoxaparin Sodium (Lovenox) 30 mg SC DAILY [facility] Last Admin: 07/21/17 10:02 Dose: 30 mg Famotidine (Pepcid) 20 mg PO DAILY [facility] Last Admin: 07/20/17 09:56 Dose: 20 mg Furosemide (Lasix) 40 mg IVP Q8H [facility] Last Admin: 07/21/17 05:15 Dose: 40 mg Hydralazine HCl (Apresoline) 25 mg PO TID [facility] Last Admin: 07/21/17 10:00 Dose: 25 mg Nicotine (Nicoderm Cq) 1 patch TD DAILY [facility] Last Admin: 07/20/17 11:29 Dose: 1 patch Nitroglycerin (Nitrostat Sl Tab) 0.4 mg SL Q5M PRN PRN Reason: Pain, severe (8-10) Promethazine HCl (Phenergan Syrup) 12.5 mg PO Q6 PRN PRN Reason: Cough Last Admin: 07/21/17 05:38 Dose: 12.5 mg Rosuvastatin Calcium (Crestor) 10 mg PO HS [facility] Last Admin: 07/20/17 21:44 Dose: 10 mg Spironolactone (Aldactone) 25 mg PO BID [facility] Last Admin: 07/21/17 10:00 Dose: 25 mg Physical Exam - Constitutional Appears: No Acute Distress - Head Exam Head Exam: NORMAL INSPECTION - Eye Exam Eye Exam: Normal appearance - ENT Exam ENT Exam: Normal Exam - Neck Exam Neck exam: Positive for: Normal Inspection - Respiratory Exam Respiratory Exam: Wheezes (b/l). absent: Accessory Muscle Use, Rales, Rhonchi, Respiratory Distress - Cardiovascular Exam Cardiovascular Exam: RRR, +S1, +S2. absent: Clicks, Diastolic murmur, Gallop, Rubs, Systolic Murmur - GI/Abdominal Exam GI & Abdominal Exam: Soft. absent: Distended, Guarding, Rebound, Tenderness - Extremities Exam Extremities exam: Positive for: pedal edema (2+ b/l LE). Negative for: tenderness - Neurological Exam Neurological exam: Alert, Oriented x3 - Skin Skin Exam: Dry, Intact, Normal Color, Warm Results - Vital Signs Recent Vital Signs: Last Vital Signs Temp 98.0 F 07/21/17 07:15 Pulse 98 H 07/21/17 07:15 Resp 20 07/21/17 07:15 BP 130/80 07/21/17 10:00 Pulse Ox 95 07/21/17 07:15 - Labs Result Diagrams: 07/21/17 06:34 07/21/17 06:34 Labs: Laboratory Results - last 24 hr 07/19/17 07/20/17 07/20/17 13:31 07:23 07:23 WBC RBC Hgb Hct MCV MCH MCHC RDW Plt Count MPV Neut % (Auto) Lymph % (Auto) [place] % (Auto) Eos % (Auto) Baso % (Auto) Neut # (Auto) Lymph # (Auto) [place] # (Auto) Eos # (Auto) Baso # (Auto) Neutrophils % (Manual) Lymphocytes % (Manual) Monocytes % (Manual) Basophils % (Manual) Platelet Estimate Sodium 136 Potassium 2.9 L Chloride 95 L Carbon Dioxide 31 H Anion Gap 14 BUN 24 H Creatinine 1.7 H Est GFR ( Amer) 54 Est GFR (Non-Af Amer) 45 POC Glucose (mg/dL) 105 Random Glucose 107 Hemoglobin A1c 5.9 Calcium 8.1 L Phosphorus Magnesium 1.5 L Total Bilirubin 1.1 AST 28 ALT 33 Alkaline Phosphatase 83 Total Protein 6.4 Albumin 3.5 Globulin 2.9 Albumin/Globulin Ratio 1.2 Triglycerides 64 D Cholesterol 133 LDL Cholesterol Direct 77 HDL Cholesterol 37 TSH 3rd Generation 2.91 Ur Random Creatinine U Random Total Protein Urine Microalbumin 07/20/17 07/20/17 07/20/17 13:00 13:04 13:04 WBC RBC Hgb Hct MCV MCH MCHC RDW Plt Count MPV Neut % (Auto) Lymph % (Auto) [place] % (Auto) Eos % (Auto) Baso % (Auto) Neut # (Auto) Lymph # (Auto) [place] # (Auto) Eos # (Auto) Baso # (Auto) Neutrophils % (Manual) Lymphocytes % (Manual) Monocytes % (Manual) Basophils % (Manual) Platelet Estimate Sodium Potassium Chloride Carbon Dioxide Anion Gap BUN Creatinine Est GFR ( Amer) Est GFR (Non-Af Amer) POC Glucose (mg/dL) Random Glucose Hemoglobin A1c Calcium Phosphorus Magnesium Total Bilirubin AST ALT Alkaline Phosphatase Total Protein Albumin Globulin Albumin/Globulin Ratio Triglycerides Cholesterol LDL Cholesterol Direct HDL Cholesterol TSH 3rd Generation Ur Random Creatinine 120.6 U Random Total Protein 52.0 H Urine Microalbumin 185.3 H 07/20/17 07/20/17 07/20/17 16:38 19:45 21:32 WBC RBC Hgb Hct MCV MCH MCHC RDW Plt Count MPV Neut % (Auto) Lymph % (Auto) [place] % (Auto) Eos % (Auto) Baso % (Auto) Neut # (Auto) Lymph # (Auto) [place] # (Auto) Eos # (Auto) Baso # (Auto) Neutrophils % (Manual) Lymphocytes % (Manual) Monocytes % (Manual) Basophils % (Manual) Platelet Estimate Sodium Potassium 3.5 L Chloride Carbon Dioxide Anion Gap BUN Creatinine Est GFR ( Amer) Est GFR (Non-Af Amer) POC Glucose (mg/dL) 83 102 Random Glucose Hemoglobin A1c Calcium Phosphorus Magnesium 2.1 Total Bilirubin AST ALT Alkaline Phosphatase Total Protein Albumin Globulin Albumin/Globulin Ratio Triglycerides Cholesterol LDL Cholesterol Direct HDL Cholesterol TSH 3rd Generation Ur Random Creatinine U Random Total Protein Urine Microalbumin 07/21/17 07/21/17 07/21/17 06:17 06:34 06:34 WBC 3.9 L RBC 4.88 Hgb 13.0 Hct 38.9 MCV 79.8 L MCH 26.7 L MCHC 33.5 RDW 15.2 H Plt Count 169 MPV 7.8 Neut % (Auto) 61.0 Lymph % (Auto) 14.5 L [place] % (Auto) 21.9 H Eos % (Auto) 0.6 Baso % (Auto) 2.0 Neut # (Auto) 2.4 Lymph # (Auto) 0.6 L [place] # (Auto) 0.8 Eos # (Auto) 0.0 Baso # (Auto) 0.1 Neutrophils % (Manual) 67 Lymphocytes % (Manual) 13 L Monocytes % (Manual) 19 H Basophils % (Manual) 1 Platelet Estimate Normal Sodium 135 Potassium 3.5 L Chloride 96 L Carbon Dioxide 28 Anion Gap 14 BUN 28 H Creatinine 1.9 H Est GFR ( Amer) 48 Est GFR (Non-Af Amer) 39 POC Glucose (mg/dL) 96 Random Glucose 105 Hemoglobin A1c Calcium 7.5 L Phosphorus 3.0 Magnesium 1.9 Total Bilirubin 1.0 AST 30 ALT 35 Alkaline Phosphatase 80 Total Protein 6.3 Albumin 3.4 L Globulin 2.9 Albumin/Globulin Ratio 1.2 Triglycerides Cholesterol LDL Cholesterol Direct HDL Cholesterol TSH 3rd Generation Ur Random Creatinine U Random Total Protein Urine Microalbumin 07/21/17 11:25 WBC RBC Hgb Hct MCV MCH MCHC RDW Plt Count MPV Neut % (Auto) Lymph % (Auto) [place] % (Auto) Eos % (Auto) Baso % (Auto) Neut # (Auto) Lymph # (Auto) [place] # (Auto) Eos # (Auto) Baso # (Auto) Neutrophils % (Manual) Lymphocytes % (Manual) Monocytes % (Manual) Basophils % (Manual) Platelet Estimate Sodium Potassium Chloride Carbon Dioxide Anion Gap BUN Creatinine Est GFR ( Amer) Est GFR (Non-Af Amer) POC Glucose (mg/dL) 58 L Random Glucose Hemoglobin A1c Calcium Phosphorus Magnesium Total Bilirubin AST ALT Alkaline Phosphatase Total Protein Albumin Globulin Albumin/Globulin Ratio Triglycerides Cholesterol LDL Cholesterol Direct HDL Cholesterol TSH 3rd Generation Ur Random Creatinine U Random Total Protein Urine Microalbumin Assessment & Plan - Assessment and Plan (Free Text) Assessment: 42 yo M with PMH of LAZARO, HTN, and chronic CHF with reduced EF presents to with SOB and LE edema, will be evaluated and treated for acute CHF exacerbation. Plan: 1. Acute on chronic CHF with reduced EF Exacerbation - BNP 35769 - EKG showed t-wave and st abnormalities in septal and lateral leads, LVH - Echo on 02/01/17 showed EF of 25-30% - Repeat echo showed EF 30%, E/A 1.2, RVSP 30 mmHg, dilated LV and LA, LVH - Lipid panel WNL - ASCVD 10 yr risk 3.7% - Strict I&O's, daily weights, head of bead to 30 degrees - Cont Coreg, Aldactone, Lasix, Crestor 2. Hypertensive Urgency, resolved - Cont hydralazine, coreg, aldactone, lasix - F/u serum aldosterone and renin - Cont to monitor 3. TOM on CKD - Management per Nephro 4. Hypokalemia - Cont to monitor and replete as needed GI/DVT PPx - Per primary Pt seen and discussed in detail with Dr. Esdras Soriano, PGY1 <René Dewitt - Last Filed: 07/23/17 01:46> Meds - Medications Medications: Current Medications Acetylcysteine (Acetylcysteine 20%) 3 ml PO Q12 [facility] Stop: 07/24/17 10:01 Last Admin: 07/22/17 22:15 Dose: 3 ml Aspirin (Ecotrin) 81 mg PO DAILY [facility] Last Admin: 07/22/17 09:35 Dose: 81 mg Carvedilol (Coreg) 12.5 mg PO BID [facility] Last Admin: 07/22/17 18:03 Dose: 12.5 mg Enoxaparin Sodium (Lovenox) 30 mg SC DAILY [facility] Last Admin: 07/22/17 09:30 Dose: 30 mg Famotidine (Pepcid) 20 mg PO DAILY [facility] Last Admin: 07/22/17 09:39 Dose: 20 mg Fluticasone Propionate (Flonase) 0 spr TRISTEN DAILY [facility] Last Admin: 07/22/17 10:00 Dose: 1 spr Furosemide (Lasix) 40 mg IVP Q8H [facility] Last Admin: 07/22/17 21:42 Dose: 40 mg Hydralazine HCl (Apresoline) 50 mg PO TID [facility] Last Admin: 07/22/17 18:03 Dose: 50 mg Nicotine (Nicoderm Cq) 1 patch TD DAILY [facility] Last Admin: 07/22/17 09:30 Dose: 1 patch Nitroglycerin (Nitrostat Sl Tab) 0.4 mg SL Q5M PRN PRN Reason: Pain, severe (8-10) Promethazine HCl/Dextromethorphan (Phenergan Dm Syrup) 5 ml PO Q6H PRN PRN Reason: Cough Last Admin: 07/22/17 18:03 Dose: 5 ml Rosuvastatin Calcium (Crestor) 10 mg PO HS [facility] Last Admin: 07/22/17 21:42 Dose: 10 mg Spironolactone (Aldactone) 25 mg PO BID [facility] Last Admin: 07/22/17 18:03 Dose: 25 mg Tiotropium [place] (Spiriva) 18 mcg INH RQ24 [facility] Last Admin: 07/22/17 19:47 Dose: 18 mcg Results - Vital Signs Recent Vital Signs: Last Vital Signs Temp 98.2 F 07/22/17 23:05 Pulse 86 07/22/17 23:39 Resp 20 07/22/17 23:05 BP 121/81 07/22/17 23:05 Pulse Ox 95 07/22/17 23:05 - Labs Result Diagrams: 07/22/17 06:21 07/22/17 06:21 Labs: Laboratory Results - last 24 hr 07/22/17 07/22/17 07/22/17 02:17 06:21 06:21 WBC 3.2 L RBC 5.22 Hgb 13.6 Hct 41.8 MCV 80.0 MCH 26.1 L MCHC 32.6 L RDW 15.3 H Plt Count 175 MPV 7.8 Neut % (Auto) 59.6 Lymph % (Auto) 13.3 L [place] % (Auto) 24.0 H Eos % (Auto) 1.9 Baso % (Auto) 1.2 Neut # (Auto) 1.9 Lymph # (Auto) 0.4 L [place] # (Auto) 0.8 Eos # (Auto) 0.1 Baso # (Auto) 0.0 Neutrophils % (Manual) 69 Band Neutrophils % 1 Lymphocytes % (Manual) 13 L Monocytes % (Manual) 15 H Eosinophils % (Manual) 2 Platelet Estimate Normal Anisocytosis (manual) Slight Ovalocytes Slight Sodium 135 Potassium 3.5 L Chloride 96 L Carbon Dioxide 32 H Anion Gap 11 BUN 28 H Creatinine 1.7 H Est GFR ( Amer) 54 Est GFR (Non-Af Amer) 45 POC Glucose (mg/dL) 87 Random Glucose 95 Calcium 8.0 L Phosphorus 3.6 Magnesium 1.7 Total Bilirubin 0.7 AST 37 ALT 45 Alkaline Phosphatase 81 Total Protein 6.1 L Albumin 3.3 L Globulin 2.8 Albumin/Globulin Ratio 1.2 07/22/17 07/22/17 07/22/17 06:33 11:47 18:02 WBC RBC Hgb Hct MCV MCH MCHC RDW Plt Count MPV Neut % (Auto) Lymph % (Auto) [place] % (Auto) Eos % (Auto) Baso % (Auto) Neut # (Auto) Lymph # (Auto) [place] # (Auto) Eos # (Auto) Baso # (Auto) Neutrophils % (Manual) Band Neutrophils % Lymphocytes % (Manual) Monocytes % (Manual) Eosinophils % (Manual) Platelet Estimate Anisocytosis (manual) Ovalocytes Sodium Potassium Chloride Carbon Dioxide Anion Gap BUN Creatinine Est GFR ( Amer) Est GFR (Non-Af Amer) POC Glucose (mg/dL) 81 125 H 103 Random Glucose Calcium Phosphorus Magnesium Total Bilirubin AST ALT Alkaline Phosphatase Total Protein Albumin Globulin Albumin/Globulin Ratio 07/22/17 20:56 WBC RBC Hgb Hct MCV MCH MCHC RDW Plt Count MPV Neut % (Auto) Lymph % (Auto) [place] % (Auto) Eos % (Auto) Baso % (Auto) Neut # (Auto) Lymph # (Auto) [place] # (Auto) Eos # (Auto) Baso # (Auto) Neutrophils % (Manual) Band Neutrophils % Lymphocytes % (Manual) Monocytes % (Manual) Eosinophils % (Manual) Platelet Estimate Anisocytosis (manual) Ovalocytes Sodium Potassium Chloride Carbon Dioxide Anion Gap BUN Creatinine Est GFR ( Amer) Est GFR (Non-Af Amer) POC Glucose (mg/dL) 124 H Random Glucose Calcium Phosphorus Magnesium Total Bilirubin AST ALT Alkaline Phosphatase Total Protein Albumin Globulin Albumin/Globulin Ratio Attending/Attestation - Attestation I have personally seen and examined this patient.: Yes I have fully participated in the care of the patient.: Yes I have reviewed all pertinent clinical information: Yes
--- NOTE | 2017-07-21 13:40 | VASCLAB ---
PROCEDURE: Lower Extremity Venous Duplex Exam. HISTORY: elevated d-dimer PRIORS: None. TECHNIQUE: Bilateral common femoral, femoral, popliteal and posterior tibial, peroneal and great saphenous veins were evaluated. Flow was assessed with color Doppler, compressibility, assessment of phasic flow and augmentation response. Report prepared by Ravin Walter, LORENA, RVT FINDINGS: RIGHT: 1. Common Femoral Vein: 1.1. Compressibility - Fully compressible: Thrombus - None : Flow - Phasic: Augmentation -Normal: Reflux - None. 2. Femoral Vein: 2.1. Compressibility - Fully compressible: Thrombus - None : Flow - Phasic: Augmentation -Normal: Reflux - None. 3. Popliteal Vein: 3.1. Compressibility - Fully compressible: Thrombus - None : Flow - Phasic: Augmentation -Normal: Reflux - None. 4. Posterior Tibial Vein: 4.1. Compressibility - Fully compressible: Thrombus - None: Flow - Phasic: Augmentation -Normal: Reflux - None. 5. Peroneal Vein: 5.1. Compressibility - Fully compressible: Thrombus - None: Flow - Phasic: Augmentation -Normal: Reflux - None. 6. Great Saphenous Vein: 6.1. Compressibility - Fully compressible: Thrombus - None: Flow - Phasic: Augmentation - Normal: Reflux - None. LEFT: 1. Common Femoral Vein: 1.1. Compressibility - Fully compressible: Thrombus - None: Flow - Phasic: Augmentation -Normal: Reflux - None. 2. Femoral Vein: 2.1. Compressibility - Fully compressible: Thrombus - None: Flow - Phasic: Augmentation -Normal: Reflux - None. 3. Popliteal Vein: 3.1. Compressibility - Fully compressible: Thrombus - None : Flow - Phasic: Augmentation -Normal: Reflux - None. 4. Posterior Tibial Vein: 4.1. Compressibility - Fully compressible: Thrombus - None: Flow - Phasic: Augmentation -Normal: Reflux - None. 5. Peroneal Vein: 5.1. Compressibility - Fully compressible: Thrombus - None: Flow - Phasic: Augmentation -Normal: Reflux - None. 6. Great Saphenous Vein: 6.1. Compressibility - Fully compressible: Thrombus - None: Flow - Phasic: Augmentation - Normal: Reflux - Severe. OTHER FINDINGS: Right: None significant. Left: None significant. IMPRESSION: Right: No evidence of deep or superficial vein thrombosis of the right lower extremity. Normal valve function noted of the right side. Left: No evidence of deep or superficial vein thrombosis of the left lower extremity. Valvular incompetence of the left greater saphenous vein.
--- NOTE | 2017-07-21 14:12 | CARD ---
APPROVED REPORT EXAM: Two-dimensional and M-mode echocardiogram with Doppler and color Doppler. Other Information Quality : GoodRhythm : INDICATION Dyspnea CHECK LOW EF RISK FACTORS Hypertension Obesity Family History Diabetes M-Mode DIMENSIONS RVDd3.28 (2.1-3.2cm)Left Atrium (MM)5.99 (2.5-4.0cm) IVSd1.77 (0.7-1.1cm)Aortic Root3.75 (2.2-3.7cm) LVDd7.44 (4.0-5.6cm)Aortic Cusp Exc.1.67 (1.5-2.0cm) PWd1.61 (0.7-1.1cm)FS (%) 17 % LVDs6.14 (2.0-3.8cm)LVEF (%)35 (>50%) Mitral Valve MV E Nsfjxnbu193.6cm/sMV A Dvwncuoz97.7cm/sE/A ratio1.2 TDI E/Lateral E'0.0E/Medial E'0.0 Tricuspid Valve TR Peak Mybysgdh192ey/sTR Peak [id number] <Conclusion> SUBOPTIMAL STUDY ( ONLY 2 VIEWS ) LA AND LV DILATED LVH LV EF 30% LV FILLING PRESSURE PROBABLY ELEVATED
[2017-07-21] MEDS: Fluticasone Nasal 50 mcg/Spray NAS SCH (17:00)
--- NOTE | 2017-07-21 20:19 | CP.PCM.PN ---
Subjective - Date & Time of Evaluation Date of Evaluation: 07/21/17 Time of Evaluation: 13:00 - Subjective Subjective: Patient still short of breath on lying down; Objective - Vital Signs/Intake and Output Vital Signs (last 24 hours): Temp Pulse Resp BP Pulse Ox 98.6 F 86 20 121/79 100 07/21/17 15:00 07/21/17 18:15 07/21/17 15:00 07/21/17 18:15 07/21/17 15:00 - Medications Medications: Current Medications Aspirin (Ecotrin) 81 mg PO DAILY [facility] Last Admin: 07/21/17 10:01 Dose: 81 mg Carvedilol (Coreg) 12.5 mg PO BID [facility] Last Admin: 07/21/17 17:30 Dose: 12.5 mg Enoxaparin Sodium (Lovenox) 30 mg SC DAILY [facility] Last Admin: 07/21/17 10:02 Dose: 30 mg Famotidine (Pepcid) 20 mg PO DAILY [facility] Last Admin: 07/20/17 09:56 Dose: 20 mg Fluticasone Propionate (Flonase) 0 spr TRISTEN DAILY [facility] Last Admin: 07/21/17 17:00 Dose: 1 spr Furosemide (Lasix) 40 mg IVP Q8H [facility] Last Admin: 07/21/17 05:15 Dose: 40 mg Hydralazine HCl (Apresoline) 25 mg PO TID [facility] Last Admin: 07/21/17 17:30 Dose: 25 mg Nicotine (Nicoderm Cq) 1 patch TD DAILY [facility] Last Admin: 07/20/17 11:29 Dose: 1 patch Nitroglycerin (Nitrostat Sl Tab) 0.4 mg SL Q5M PRN PRN Reason: Pain, severe (8-10) Promethazine HCl (Phenergan Syrup) 12.5 mg PO Q6 PRN PRN Reason: Cough Last Admin: 07/21/17 05:38 Dose: 12.5 mg Rosuvastatin Calcium (Crestor) 10 mg PO HS [facility] Last Admin: 07/20/17 21:44 Dose: 10 mg Spironolactone (Aldactone) 25 mg PO BID [facility] Last Admin: 07/21/17 17:30 Dose: 25 mg - Labs Labs: 07/21/17 06:34 07/21/17 06:34 - Constitutional Appears: Non-toxic, No Acute Distress Assessment and Plan (1) TOM (acute kidney injury) Assessment & Plan: Likely cardiorenal etiology and need to continue with aggressive diuresis, continue lasix 40 mg IV q8h and aldactone 25 mg bid; Status: Acute (2) Acute systolic (congestive) heart failure Status: Acute
[2017-07-21] MEDS: guaiFENesin-Codeine 100-10mg/5ml Syrup (10ml) UD PO PRN (21:42)
[2017-07-22] MEDS: guaiFENesin-Codeine 100-10mg/5ml Syrup (10ml) UD PO PRN ×2 (02:48→09:20)
[2017-07-22 06:31] LABS: BASO % 1.2 % (0.0-2.0); EOS # 0.1 K/uL (0.0-0.7); EOS % 1.9 % (0.0-4.0); HEMOGLOBIN 13.6 g/dL (12.0-18.0); LYMPH # 0.4 K/uL (1.0-4.3); LYMPH % 13.3 % (20.0-40.0); MEAN CORPUSCULAR HEMOGLOBIN 26.1 pg (27.0-31.0); MEAN CORPUSCULAR HGB CONC 32.6 g/dL (33.0-37.0); MEAN PLATELET VOLUME 7.8 fL (7.2-11.7); MONO # 0.8 K/uL (0.0-0.8); NEUT # 1.9 K/uL (1.8-7.0); NEUT % 59.6 % (50.0-75.0); NRBC % 0.3 % (0.0-2.0); PLATELET COUNT 175 K/uL (130-400); RBC 5.22 Mil/uL (4.40-5.90); RED CELL DISTRIBUTION WIDTH 15.3 % (11.5-14.5); WHITE BLOOD COUNT 3.2 K/uL (4.8-10.8)
[2017-07-22 07:47] LABS: ALB/GLOB RATIO 1.2 (1.0-2.1); ALBUMIN 3.3 g/dL (3.5-5.0); MAGNESIUM 1.7 mg/dL (1.6-2.3)
[2017-07-22] MEDS ORDERED: Potassium Chloride 20 mEq ER Tab PO ONE (08:49)
[2017-07-22 09:02] LABS: BANDS 1 % (0-2); EOSINOPHIL 2 % (0-4); LYMPHOCYTE 13 % (20-40); MONOCYTE 15 % (0-10); NEUTROPHIL 69 % (50-75); TOTAL CELLS COUNTED 100
[2017-07-22 09:03] LABS: PLATELET ESTIMATE NORMAL (NORMAL)
[2017-07-22 09:04] LABS: ANISOCYTOSIS SLIGHT; OVALOCYTES SLIGHT
--- NOTE | 2017-07-22 09:15 | CP.PCM.PN ---
<Pealr Mckeon - Last Filed: 07/22/17 18:26> Subjective - Date & Time of Evaluation Date of Evaluation: 07/22/17 Time of Evaluation: 07:00 - Subjective Subjective: Medicine Progress Note: Patient was seen and examined at bedside in the AM. Patient states his breathing has significantly improved after he started Spiriva. He denies chest pain, palpitations, nausea, vomiting, diarrhea or constipation. Objective - Vital Signs/Intake and Output Vital Signs (last 24 hours): Temp Pulse Resp BP Pulse Ox 98.0 F 85 20 164/122 H 97 07/22/17 08:01 07/22/17 08:01 07/22/17 08:01 07/22/17 08:01 07/22/17 08:01 Intake and Output: 07/22/17 07/22/17 06:59 18:59 Intake Total 380 Output Total 400 Balance -20 - Medications Medications: Current Medications Aspirin (Ecotrin) 81 mg PO DAILY [facility] Last Admin: 07/21/17 10:01 Dose: 81 mg Carvedilol (Coreg) 12.5 mg PO BID [facility] Last Admin: 07/21/17 17:30 Dose: 12.5 mg Enoxaparin Sodium (Lovenox) 30 mg SC DAILY [facility] Last Admin: 07/21/17 10:02 Dose: 30 mg Famotidine (Pepcid) 20 mg PO DAILY [facility] Last Admin: 07/20/17 09:56 Dose: 20 mg Fluticasone Propionate (Flonase) 0 spr TRISTEN DAILY [facility] Last Admin: 07/21/17 17:00 Dose: 1 spr Furosemide (Lasix) 40 mg IVP Q8H [facility] Last Admin: 07/22/17 06:16 Dose: 40 mg Hydralazine HCl (Apresoline) 50 mg PO TID [facility] Nicotine (Nicoderm Cq) 1 patch TD DAILY [facility] Last Admin: 07/20/17 11:29 Dose: 1 patch Nitroglycerin (Nitrostat Sl Tab) 0.4 mg SL Q5M PRN PRN Reason: Pain, severe (8-10) Promethazine HCl/Dextromethorphan (Phenergan Dm Syrup) 5 ml PO Q6H PRN PRN Reason: Cough Rosuvastatin Calcium (Crestor) 10 mg PO HS [facility] Last Admin: 07/21/17 21:33 Dose: 10 mg Spironolactone (Aldactone) 25 mg PO BID [facility] Last Admin: 07/21/17 17:30 Dose: 25 mg Tiotropium [place] (Spiriva Inhalation Handihaler Device) 1 inhaler INH DAILY [facility] - Labs Labs: 07/22/17 06:21 07/22/17 06:21 - Constitutional Appears: No Acute Distress - Head Exam Head Exam: NORMAL INSPECTION - Eye Exam Eye Exam: EOMI, Normal appearance - ENT Exam ENT Exam: Mucous Membranes Moist - Respiratory Exam Respiratory Exam: Wheezes, NORMAL BREATHING PATTERN - Cardiovascular Exam Cardiovascular Exam: REGULAR RHYTHM, +S1, +S2 - GI/Abdominal Exam GI & Abdominal Exam: Soft, Normal Bowel Sounds. absent: Tenderness - Extremities Exam Extremities Exam: Pedal Edema - Neurological Exam Neurological Exam: Alert, Awake, Oriented x3 - Psychiatric Exam Psychiatric exam: Normal Affect, Normal Mood - Skin Skin Exam: Warm Assessment and Plan - Assessment and Plan (Free Text) Assessment: 1.) Acute systolic (congestive) heart failure Monitor on telemetry Cardiology Consult: Dr. Dewitt --> help appreciated BNP 18873 Troponinx3: 0.79, 0.0.083, 0.1010 - Images * EKGs: LVH, Twave inversions, ST depressions; f/u official report * CXR: no active disease * ECHO: f/u report * ECHO (01/2017): mild-moderate LVH, global hypokinesis of LV; severely impaired systolic and diastolic dysfunction; EF 25-30%; RV mildly dilated; biatrial enlarged; moderate pulmonary HTN; trace pericardial effusion. - Medications: * Aspirin 81 mg PO daily * Nitrostat 0.4 SL Q5m PRN * Coreg 12.5mg PO BID * Hydralazine 25mg PO TID * Crestor 10mg PO HS * Aldactone 25mg PO BID 2.) Dyspnea Pulm Consult: Dr. Jacobo --> help appreciated - per note patient may benefit from CPAP at night [place] risk: 4.5, r/o DVT * Given lovenox 120mg SC x1 - D-dimer: 395 - BNP 79832 - Place on BiPAP - Images: * CXR: no active disease * VQ scan: low probability of PE * Venous dopplers: negative * ECHO (07/20/17): LA and LV dilated; LV EF 30%; LV filling pressure probably elevated * ECHO (01/2017): mild-moderate LVH, global hypokinesis of LV; severely impaired systolic and diastolic dysfunction; EF 25-30%; RV mildly dilated; biatrial enlarged; moderate pulmonary HTN; trace pericardial effusion. - Medications: * Lasix 40mg IV q8h * Phenergan prn cough * Spiriva 3.) Hypertensive urgency At admission, 172/118, 166/113, 183/138 Cardiology consult: Dr. Dewitt --> help appreciated - Medications: * Coreg 12.5mg PO BID, * Hydralazine 25mg PO TID - Continue to monitor vitals 4.) Renal insufficiency Nephrology Consult: Dr. Chang --> help appreciated BUN/Cr 28/1.8 at admission * Bladder scan * Renal U/S - normal * Continue to monitor H/H * Monitor intake/output 5.) Morbidly obese - A1c: 5.9 - Tchol 133, Trig 64, LDL 77, HDL 37 - TSH 2.91 6.) Hypokalemia - K 3.5 - Repleated - Continue to Monitor 7.) Hypomagnesia - Mg 1.9 (WNL) - Continue to Monitor 8.) Tobacco use - Nicoderm patch 9.) Prophylactic measure - Lovenox 30mg SC daily - hold at midnight - C/I SCDs due to LE edema - Pepcid 20mg PO daily - Intake and output - Monitor daily weight Disposition: Possible Cath on Friday07/23/17 pending AM labs and Nephro clearance - NPO/Lovenox held at midnight Case Discussed with Dr. Fercho Mckeon PGY-1 <Cuco Brantley - Last Filed: 07/22/17 20:31> Objective - Vital Signs/Intake and Output Vital Signs (last 24 hours): Temp Pulse Resp BP Pulse Ox 98.9 F 86 20 146/115 H 96 07/22/17 15:33 07/22/17 16:00 07/22/17 15:33 07/22/17 18:03 07/22/17 15:33 Intake and Output: 07/22/17 07/23/17 18:59 06:59 Output Total 500 Balance -500 - Medications Medications: Current Medications Aspirin (Ecotrin) 81 mg PO DAILY [facility] Last Admin: 07/22/17 09:35 Dose: 81 mg Carvedilol (Coreg) 12.5 mg PO BID [facility] Last Admin: 07/22/17 18:03 Dose: 12.5 mg Enoxaparin Sodium (Lovenox) 30 mg SC DAILY [facility] Last Admin: 07/22/17 09:30 Dose: 30 mg Famotidine (Pepcid) 20 mg PO DAILY [facility] Last Admin: 07/22/17 09:39 Dose: 20 mg Fluticasone Propionate (Flonase) 0 spr TRISTEN DAILY [facility] Last Admin: 07/22/17 10:00 Dose: 1 spr Furosemide (Lasix) 40 mg IVP Q8H [facility] Last Admin: 07/22/17 13:07 Dose: 40 mg Hydralazine HCl (Apresoline) 50 mg PO TID [facility] Last Admin: 07/22/17 18:03 Dose: 50 mg Nicotine (Nicoderm Cq) 1 patch TD DAILY [facility] Last Admin: 07/22/17 09:30 Dose: 1 patch Nitroglycerin (Nitrostat Sl Tab) 0.4 mg SL Q5M PRN PRN Reason: Pain, severe (8-10) Promethazine HCl/Dextromethorphan (Phenergan Dm Syrup) 5 ml PO Q6H PRN PRN Reason: Cough Last Admin: 07/22/17 18:03 Dose: 5 ml Rosuvastatin Calcium (Crestor) 10 mg PO HS [facility] Last Admin: 07/21/17 21:33 Dose: 10 mg Spironolactone (Aldactone) 25 mg PO BID [facility] Last Admin: 07/22/17 18:03 Dose: 25 mg Tiotropium [place] (Spiriva) 18 mcg INH RQ24 [facility] Last Admin: 07/22/17 19:47 Dose: 18 mcg - Labs Labs: 07/22/17 06:21 07/22/17 06:21 Attending/Attestation - Attestation I have personally seen and examined this patient.: Yes I have fully participated in the care of the patient.: Yes I have reviewed all pertinent clinical information, including history, physical exam and plan: Yes Notes (Text): 07/22/17 20:18 Patient was seen and examined at 9 AM 07/22/17. Exam, assessment and plan were thoroughly gone over with the resident. Also on ROS: Nasal Congestion is better Cough is dry and better Scrotal swelling has resolved Also on Exam: HEENT: Nasal Turbinates are less erythematous and edematous Respiratory: Bilateral lower lobes expiratory wheezing GI: Central Obesity, Liver and spleen could not be palpated Ext: 1+ pitting edema from feet to the knees bilaterally Assessments: 1). Acute Systolic HF Weight today is 301 which is down from 308 on admission ASA Coreg Crestor Lasix Aldactone Echo 07/20/17 was a poor study: please see Echo report 01/2017 which showed EF 25- 30%, mild/moderate LVH, glogal hypokinesis of LV, severely impaired systolic/ diastolic dysfunction, RV mildly dilated, moderate pulmonary HTN For Cardiac Catheterization 07/23/17 if cleared by Nephrology: F/U 07/23/17 labs to see how the BUN/Cr are Cardiology Dr. Dewitt F/U Chest X Ray PA/Lateral 07/22/17 2). Dyspnea V/Q Scan low probability Venous Duplex Bilateral LE negative Likely secondary to HF, Body Habitus, Nicotine Addiction 3). HTN Coreg 12.5 mg PO 2x/day Hydralazine increased to 50 mg PO TID 4). Renal Insufficiency Renal U/S is limited due to body habitus but there were no masses/ hydronephrosis appreciated BUN/Cr at 28/1.7 Urine Microalbumin 134.[address] Chang 5). Morbid Obesity 6). Nicotine Addiction Nicotine Patch 21 mg TD 1x/day Spiriva 2 PO INH 1 capsule via handihaler device 1x/day 7). Moderate Pulmonary HTN F/U recommendations Pulmonology Dr. Jacobo 8). Hypokalemia Repleated Cuco Brantley D.O.
[2017-07-22] MEDS: Enoxaparin 40 mg Syringe SC SCH (09:30)
--- NOTE | 2017-07-22 09:34 | CP.PCM.PN ---
<ChristieRobin - Last Filed: 07/22/17 09:31> Subjective - Date & Time of Evaluation Date of Evaluation: 07/22/17 Time of Evaluation: 09:32 - Subjective Subjective: Cardiology Progress Note for Dr. Dewitt Pt seen and examined at bedside. No acute overnight events. Pt states that coughing is keeping him up at night. Pt states that it is difficult for him to sleep with his head elevated because it is uncomfortable. Pt denied CP, n/v/d, abdominal pain, fever, chills, [place]ING[place], or dizziness. Objective - Vital Signs/Intake and Output Vital Signs (last 24 hours): Temp Pulse Resp BP Pulse Ox 98.0 F 85 20 164/122 H 97 07/22/17 08:01 07/22/17 08:01 07/22/17 08:01 07/22/17 08:01 07/22/17 08:01 Intake and Output: 07/22/17 07/22/17 06:59 18:59 Intake Total 380 Output Total 400 Balance -20 - Medications Medications: Current Medications Aspirin (Ecotrin) 81 mg PO DAILY [facility] Last Admin: 07/21/17 10:01 Dose: 81 mg Carvedilol (Coreg) 12.5 mg PO BID [facility] Last Admin: 07/21/17 17:30 Dose: 12.5 mg Enoxaparin Sodium (Lovenox) 30 mg SC DAILY [facility] Last Admin: 07/21/17 10:02 Dose: 30 mg Famotidine (Pepcid) 20 mg PO DAILY [facility] Last Admin: 07/20/17 09:56 Dose: 20 mg Fluticasone Propionate (Flonase) 0 spr TRISTEN DAILY [facility] Last Admin: 07/21/17 17:00 Dose: 1 spr Furosemide (Lasix) 40 mg IVP Q8H [facility] Last Admin: 07/22/17 06:16 Dose: 40 mg Hydralazine HCl (Apresoline) 50 mg PO TID [facility] Nicotine (Nicoderm Cq) 1 patch TD DAILY [facility] Last Admin: 07/20/17 11:29 Dose: 1 patch Nitroglycerin (Nitrostat Sl Tab) 0.4 mg SL Q5M PRN PRN Reason: Pain, severe (8-10) Promethazine HCl/Dextromethorphan (Phenergan Dm Syrup) 5 ml PO Q6H PRN PRN Reason: Cough Rosuvastatin Calcium (Crestor) 10 mg PO HS [facility] Last Admin: 07/21/17 21:33 Dose: 10 mg Spironolactone (Aldactone) 25 mg PO BID [facility] Last Admin: 07/21/17 17:30 Dose: 25 mg Tiotropium [place] (Spiriva Inhalation Handihaler Device) 2 inhaler INH ONCE ONE Stop: 07/22/17 10:01 Tiotropium [place] (Spiriva) 18 mcg INH RQ24 [facility] - Labs Labs: 07/22/17 06:21 07/22/17 06:21 - Constitutional Appears: No Acute Distress - Head Exam Head Exam: NORMAL INSPECTION - Eye Exam Eye Exam: Normal appearance - ENT Exam ENT Exam: Normal Exam - Neck Exam Neck Exam: Normal Inspection - Respiratory Exam Respiratory Exam: Rales, Wheezes. absent: Accessory Muscle Use, Rhonchi, Respiratory Distress - Cardiovascular Exam Cardiovascular Exam: RRR, +S1, +S2. absent: Gallop, Rubs, Murmur - GI/Abdominal Exam GI & Abdominal Exam: Soft. absent: Distended, Guarding, Tenderness, Rebound - Extremities Exam Extremities Exam: Pedal Edema (2+ b/l LE) - Neurological Exam Neurological Exam: Alert, Awake, Oriented x3 - Skin Skin Exam: Dry, Intact, Normal Color, Warm Assessment and Plan - Assessment and Plan (Free Text) Assessment: 42 yo M with PMH of LAZARO, HTN, and chronic CHF with reduced EF presents to with SOB and LE edema, will be evaluated and treated for acute CHF exacerbation. Plan: 1. Acute on chronic CHF with reduced EF Exacerbation - BNP 03712 - EKG showed t-wave and st abnormalities in septal and lateral leads, LVH - Echo on 02/01/17 showed EF of 25-30% - Repeat echo showed EF 30%, E/A 1.2, RVSP 30 mmHg, dilated LV and LA, LVH - Lipid panel WNL - ASCVD 10 yr risk 3.7% - Strict I&O's, daily weights, head of bead to 30 degrees - Cont Coreg, Aldactone, Lasix, Crestor - Plan for Cardiac Cath tomorrow NPO after midnight 2. Hypertensive Urgency, resolved - Cont hydralazine, coreg, aldactone, lasix - F/u serum aldosterone and renin - Cont to monitor 3. TOM on CKD - Management per Nephro 4. Hypokalemia - Cont to monitor and replete as needed GI/DVT PPx - Per primary Pt seen and discussed in detail with Dr. Esdras Soriano, PGY1 <René Dewitt - Last Filed: 07/23/17 01:46> Objective - Vital Signs/Intake and Output Vital Signs (last 24 hours): Temp Pulse Resp BP Pulse Ox 98.2 F 86 20 121/81 95 07/22/17 23:05 07/22/17 23:39 07/22/17 23:05 07/22/17 23:05 07/22/17 23:05 Intake and Output: 07/22/17 07/23/17 18:59 06:59 Intake Total 580 Output Total 500 1050 Balance -500 -470 - Medications Medications: Current Medications Acetylcysteine (Acetylcysteine 20%) 3 ml PO Q12 [facility] Stop: 07/24/17 10:01 Last Admin: 07/22/17 22:15 Dose: 3 ml Aspirin (Ecotrin) 81 mg PO DAILY [facility] Last Admin: 07/22/17 09:35 Dose: 81 mg Carvedilol (Coreg) 12.5 mg PO BID [facility] Last Admin: 07/22/17 18:03 Dose: 12.5 mg Enoxaparin Sodium (Lovenox) 30 mg SC DAILY [facility] Last Admin: 07/22/17 09:30 Dose: 30 mg Famotidine (Pepcid) 20 mg PO DAILY [facility] Last Admin: 07/22/17 09:39 Dose: 20 mg Fluticasone Propionate (Flonase) 0 spr TRISTEN DAILY [facility] Last Admin: 07/22/17 10:00 Dose: 1 spr Furosemide (Lasix) 40 mg IVP Q8H [facility] Last Admin: 07/22/17 21:42 Dose: 40 mg Hydralazine HCl (Apresoline) 50 mg PO TID [facility] Last Admin: 07/22/17 18:03 Dose: 50 mg Nicotine (Nicoderm Cq) 1 patch TD DAILY [facility] Last Admin: 07/22/17 09:30 Dose: 1 patch Nitroglycerin (Nitrostat Sl Tab) 0.4 mg SL Q5M PRN PRN Reason: Pain, severe (8-10) Promethazine HCl/Dextromethorphan (Phenergan Dm Syrup) 5 ml PO Q6H PRN PRN Reason: Cough Last Admin: 07/22/17 18:03 Dose: 5 ml Rosuvastatin Calcium (Crestor) 10 mg PO HS [facility] Last Admin: 07/22/17 21:42 Dose: 10 mg Spironolactone (Aldactone) 25 mg PO BID [facility] Last Admin: 07/22/17 18:03 Dose: 25 mg Tiotropium [place] (Spiriva) 18 mcg INH RQ24 [facility] Last Admin: 07/22/17 19:47 Dose: 18 mcg - Labs Labs: 07/22/17 06:21 07/22/17 06:21 Attending/Attestation - Attestation I have personally seen and examined this patient.: Yes I have fully participated in the care of the patient.: Yes I have reviewed all pertinent clinical information, including history, physical exam and plan: Yes
[2017-07-22] MEDS: Promethazine DM 6.25 mg-15 mg/5 ml Syrup PO PRN ×3 (09:39→18:03)
[2017-07-22] MEDS: Fluticasone Nasal 50 mcg/Spray NAS SCH (10:00)
--- NOTE | 2017-07-22 14:34 | RAD ---
Chest x-ray two views History: Expiratory wheezing. Comparison: 07/19/2017 Findings: Cardiomegaly. Enlarged ectatic aorta. Right hilar prominence. Patchy increased markings in the right mid to lower lung zone. Clinical correlation. Mild venous congestion. Degenerative changes in the spine and shoulders. Impression: Cardiomegaly. Enlarged ectatic aorta. Right hilar prominence. Patchy increased markings in the right mid to lower lung zone. Clinical correlation. Mild venous congestion.
--- NOTE | 2017-07-22 17:26 | CP.PCM.CON ---
History of Present Illness - History of Present Illness History of Present Illness: Patient is a 42 y.o M with PMH of CHF, LAZARO, and HTN who presented with shortness of breath and lower extremity edema. Patient came in with elevated BP of 166/113. On admission, patient was given ASA 325, Labetolol, Lasix. Patient was diagnosed with systolic CHF in 01/2017, but has been noncompliant with medications and does not follow up with PMD. Patient states that SOB started one month ago, and also complains of productive cough. SOB worsens when patient is laying flat. He walks to work and denies SOB on exertion. Patient states that shortness of breath improved after receiving Lasix. Review of Systems - Review of Systems All systems: reviewed and no additional remarkable complaints except (shortness of breath) Past Patient History - Past Medical History & Family History Past Medical History?: No - Past Social History Smoking Status: Heavy Smoker > 10 Cigarettes Daily - CARDIAC Hx Congestive Heart Failure: Yes - PULMONARY Hx Respiratory Disorders: Yes Hx Bronchitis: Yes - NEUROLOGICAL Hx Neurological Disorder: No - HEENT Hx HEENT Problems: No - RENAL Hx Chronic Kidney Disease: No - ENDOCRINE/METABOLIC Hx Endocrine Disorders: No - HEMATOLOGICAL/ONCOLOGICAL Hx Blood Disorders: No - INTEGUMENTARY Hx Dermatological Problems: No - MUSCULOSKELETAL/RHEUMATOLOGICAL Hx Falls: No - GASTROINTESTINAL Hx Gastrointestinal Disorders: No - PSYCHIATRIC Hx Substance Use: No - SURGICAL HISTORY Hx Appendectomy: Yes - ANESTHESIA Hx Anesthesia: Yes Hx Anesthesia Reactions: No Meds Allergies/Adverse Reactions: Allergies Allergy/AdvReac Type Severity Reaction Status Date / Time No Known Allergies Allergy Verified 07/19/17 08:17 - Medications Medications: Current Medications Aspirin (Ecotrin) 81 mg PO DAILY [facility] Last Admin: 07/22/17 09:35 Dose: 81 mg Carvedilol (Coreg) 12.5 mg PO BID [facility] Last Admin: 07/22/17 10:00 Dose: 12.5 mg Enoxaparin Sodium (Lovenox) 30 mg SC DAILY [facility] Last Admin: 07/22/17 09:30 Dose: 30 mg Famotidine (Pepcid) 20 mg PO DAILY [facility] Last Admin: 07/22/17 09:39 Dose: 20 mg Fluticasone Propionate (Flonase) 0 spr TRISTEN DAILY [facility] Last Admin: 07/22/17 10:00 Dose: 1 spr Furosemide (Lasix) 40 mg IVP Q8H [facility] Last Admin: 07/22/17 13:07 Dose: 40 mg Hydralazine HCl (Apresoline) 50 mg PO TID [facility] Last Admin: 07/22/17 13:11 Dose: 50 mg Nicotine (Nicoderm Cq) 1 patch TD DAILY [facility] Last Admin: 07/22/17 09:30 Dose: 1 patch Nitroglycerin (Nitrostat Sl Tab) 0.4 mg SL Q5M PRN PRN Reason: Pain, severe (8-10) Promethazine HCl/Dextromethorphan (Phenergan Dm Syrup) 5 ml PO Q6H PRN PRN Reason: Cough Last Admin: 07/22/17 13:00 Dose: 5 ml Rosuvastatin Calcium (Crestor) 10 mg PO HS [facility] Last Admin: 07/21/17 21:33 Dose: 10 mg Spironolactone (Aldactone) 25 mg PO BID [facility] Last Admin: 07/22/17 09:34 Dose: 25 mg Tiotropium [place] (Spiriva) 18 mcg INH RQ24 [facility] Physical Exam - Head Exam Head Exam: ATRAUMATIC, NORMOCEPHALIC - Eye Exam Eye Exam: Normal appearance - ENT Exam ENT Exam: Mucous Membranes Moist - Neck Exam Neck exam: Positive for: Normal Inspection - Respiratory Exam Respiratory Exam: Rhonchi, Wheezes - Cardiovascular Exam Cardiovascular Exam: REGULAR RHYTHM - GI/Abdominal Exam GI & Abdominal Exam: Normal Bowel Sounds - Extremities Exam Extremities exam: Positive for: pedal edema Results - Vital Signs Recent Vital Signs: Last Vital Signs Temp 98.9 F 07/22/17 15:33 Pulse 86 07/22/17 16:00 Resp 20 07/22/17 15:33 BP 135/91 H 07/22/17 15:33 Pulse Ox 96 07/22/17 15:33 - Labs Result Diagrams: 07/22/17 06:21 07/22/17 06:21 Labs: Laboratory Results - last 24 hr 07/21/17 07/22/17 07/22/17 21:18 02:17 06:21 WBC 3.2 L RBC 5.22 Hgb 13.6 Hct 41.8 MCV 80.0 MCH 26.1 L MCHC 32.6 L RDW 15.3 H Plt Count 175 MPV 7.8 Neut % (Auto) 59.6 Lymph % (Auto) 13.3 L [place] % (Auto) 24.0 H Eos % (Auto) 1.9 Baso % (Auto) 1.2 Neut # (Auto) 1.9 Lymph # (Auto) 0.4 L [place] # (Auto) 0.8 Eos # (Auto) 0.1 Baso # (Auto) 0.0 Neutrophils % (Manual) 69 Band Neutrophils % 1 Lymphocytes % (Manual) 13 L Monocytes % (Manual) 15 H Eosinophils % (Manual) 2 Platelet Estimate Normal Anisocytosis (manual) Slight Ovalocytes Slight Sodium Potassium Chloride Carbon Dioxide Anion Gap BUN Creatinine Est GFR ( Amer) Est GFR (Non-Af Amer) POC Glucose (mg/dL) 91 87 Random Glucose Calcium Phosphorus Magnesium Total Bilirubin AST ALT Alkaline Phosphatase Total Protein Albumin Globulin Albumin/Globulin Ratio 07/22/17 07/22/17 07/22/17 06:21 06:33 11:47 WBC RBC Hgb Hct MCV MCH MCHC RDW Plt Count MPV Neut % (Auto) Lymph % (Auto) Gates % (Auto) Eos % (Auto) Baso % (Auto) Neut # (Auto) Lymph # (Auto) Gates # (Auto) Eos # (Auto) Baso # (Auto) Neutrophils % (Manual) Band Neutrophils % Lymphocytes % (Manual) Monocytes % (Manual) Eosinophils % (Manual) Platelet Estimate Anisocytosis (manual) Ovalocytes Sodium 135 Potassium 3.5 L Chloride 96 L Carbon Dioxide 32 H Anion Gap 11 BUN 28 H Creatinine 1.7 H Est GFR ( Amer) 54 Est GFR (Non-Af Amer) 45 POC Glucose (mg/dL) 81 125 H Random Glucose 95 Calcium 8.0 L Phosphorus 3.6 Magnesium 1.7 Total Bilirubin 0.7 AST 37 ALT 45 Alkaline Phosphatase 81 Total Protein 6.1 L Albumin 3.3 L Globulin 2.8 Albumin/Globulin Ratio 1.2 Assessment & Plan - Assessment and Plan (Free Text) Plan: Assessment and Plan: ?Patient is a 42 y.o M with PMH of CHF, LAZARO, and HTN who presented with shortness of breath, productive cough and lower extremity edema, most likely due to acute CHF exacerbation. SOB: -medical management for CHF -V/Q scan- low probability for PE -ECHO- LA and LV dilated, LVH, EF of 30% -CXR on 07/19- no active disease; Repeat CXR on 07/22 report pending -BNP- 10,100 -consider sleep study as outpatient, may benefit from CPAP at night
[2017-07-22] MEDS: Tiotropium 18 mcg Cap For Inhalation INH SCH (19:47)
--- NOTE | 2017-07-22 21:26 | CP.PCM.PN ---
Subjective - Date & Time of Evaluation Date of Evaluation: 07/22/17 Time of Evaluation: 17:30 - Subjective Subjective: Patient still unable to lie flat due to cough; reports breathing is improved overall; feeling sleepy; Objective - Vital Signs/Intake and Output Vital Signs (last 24 hours): Temp Pulse Resp BP Pulse Ox 98.9 F 86 20 146/115 H 96 07/22/17 15:33 07/22/17 16:00 07/22/17 15:33 07/22/17 18:03 07/22/17 15:33 Intake and Output: 07/22/17 07/23/17 18:59 06:59 Output Total 500 550 Balance -500 -550 - Medications Medications: Current Medications Aspirin (Ecotrin) 81 mg PO DAILY [facility] Last Admin: 07/22/17 09:35 Dose: 81 mg Carvedilol (Coreg) 12.5 mg PO BID [facility] Last Admin: 07/22/17 18:03 Dose: 12.5 mg Enoxaparin Sodium (Lovenox) 30 mg SC DAILY [facility] Last Admin: 07/22/17 09:30 Dose: 30 mg Famotidine (Pepcid) 20 mg PO DAILY [facility] Last Admin: 07/22/17 09:39 Dose: 20 mg Fluticasone Propionate (Flonase) 0 spr TRISTEN DAILY [facility] Last Admin: 07/22/17 10:00 Dose: 1 spr Furosemide (Lasix) 40 mg IVP Q8H [facility] Last Admin: 07/22/17 13:07 Dose: 40 mg Hydralazine HCl (Apresoline) 50 mg PO TID [facility] Last Admin: 07/22/17 18:03 Dose: 50 mg Nicotine (Nicoderm Cq) 1 patch TD DAILY [facility] Last Admin: 07/22/17 09:30 Dose: 1 patch Nitroglycerin (Nitrostat Sl Tab) 0.4 mg SL Q5M PRN PRN Reason: Pain, severe (8-10) Promethazine HCl/Dextromethorphan (Phenergan Dm Syrup) 5 ml PO Q6H PRN PRN Reason: Cough Last Admin: 07/22/17 18:03 Dose: 5 ml Rosuvastatin Calcium (Crestor) 10 mg PO HS [facility] Last Admin: 07/21/17 21:33 Dose: 10 mg Spironolactone (Aldactone) 25 mg PO BID [facility] Last Admin: 07/22/17 18:03 Dose: 25 mg Tiotropium Willard (Spiriva) 18 mcg INH RQ24 [facility] Last Admin: 07/22/17 19:47 Dose: 18 mcg - Labs Labs: 07/22/17 06:21 07/22/17 06:21 - Constitutional Appears: Non-toxic, No Acute Distress - Eye Exam Eye Exam: absent: Scleral icterus - ENT Exam ENT Exam: Mucous Membranes Moist - Respiratory Exam Respiratory Exam: Wheezes. absent: Respiratory Distress - Cardiovascular Exam Cardiovascular Exam: RRR, +S1, +S2. absent: Gallop - GI/Abdominal Exam GI & Abdominal Exam: Soft. absent: Distended, Tenderness - Extremities Exam Additional comments: markedly edematous legs; - Neurological Exam Neurological Exam: Alert, Awake - Psychiatric Exam Psychiatric exam: Normal Affect, Normal Mood. absent: Agitated - Skin Skin Exam: Warm. absent: Cyanosis Assessment and Plan (1) TOM (acute kidney injury) Assessment & Plan: Likely cardiorenal etiology in the severe volume overload; renal function mildly improved with aggressive diuresis, continue lasix IV 40 mg q8h and aldactone 25 mg bid; Status: Acute (2) Acute systolic (congestive) heart failure Assessment & Plan: Severely decompensated systolic CHF in the setting of medication non-adherence; on B-jordon, aldactone and loop diuretic; holding off on HERMINIA inhibitor/ARB until renal function stabilized; in need of cardiac cath; starting acetylcysteine for contrast prophylaxis but needs more diuresis and should await further improvement in renal function before proceeding with cath; Status: Acute (3) Hypertensive emergency Assessment & Plan: BP better controlled with increased dose of hydralazine at 50 mg tid; continue along with coreg 12.5 bid and aldactone 25 bid; Status: Acute (4) CKD (chronic kidney disease) stage 3, GFR 30-59 ml/min Assessment & Plan: as mild proteinuria (~150 mg/g albuminuria) that is suggestive of possible secondary FSGS due to morbid obesity; will obtain limited serologic workup to look for other causes of CKD; otherwise, needs to be on HERMINIA inhibitor/ARB chcf (holding acutely) and achieve weight reduction; Status: Acute
[2017-07-22] MEDS ORDERED: Acetylcysteine 20% Inhal Soln (4ml) PO SCH (22:00)
[2017-07-23 06:27] LABS: BASO % 1.1 % (0.0-2.0); EOS % 1.2 % (0.0-4.0); LYMPH # 0.6 K/uL (1.0-4.3); LYMPH % 22.7 % (20.0-40.0); MEAN CELL VOLUME 79.3 fL (80.0-94.0); MEAN CORPUSCULAR HEMOGLOBIN 26.1 pg (27.0-31.0); MEAN CORPUSCULAR HGB CONC 32.9 g/dL (33.0-37.0); MEAN PLATELET VOLUME 7.6 fL (7.2-11.7); MONO # 0.7 K/uL (0.0-0.8); MONO % 28.4 % (0.0-10.0); NEUT # 1.2 K/uL (1.8-7.0); NEUT % 46.6 % (50.0-75.0); NRBC % 0.3 % (0.0-2.0); PLATELET COUNT 161 K/uL (130-400); RBC 5.37 Mil/uL (4.40-5.90); RED CELL DISTRIBUTION WIDTH 14.6 % (11.5-14.5); WHITE BLOOD COUNT 2.6 K/uL (4.8-10.8)
[2017-07-23] MEDS: Tiotropium 18 mcg Cap For Inhalation INH SCH (07:00)
[2017-07-23 07:41] LABS: ALB/GLOB RATIO 1.2 (1.0-2.1); ALBUMIN 3.4 g/dL (3.5-5.0); MAGNESIUM 1.8 mg/dL (1.6-2.3)
[2017-07-23 07:50] LABS: LYMPHOCYTE 22 % (20-40); MONOCYTE 26 % (0-10); NEUTROPHIL 52 % (50-75); PLATELET ESTIMATE NORMAL (NORMAL); TOTAL CELLS COUNTED 100
[2017-07-23 08:00] LABS: COMPLEMENT C4 26.5 mg/dL (14.0-44.0)
[2017-07-23 08:50] LABS: HEPATITIS B SURFACE AG Negative (NEGATIVE)
[2017-07-23] MEDS ORDERED: Potassium Chloride 20 mEq ER Tab PO ONE ×2 (08:58→19:00)
[2017-07-23 09:04] LABS: INR 1.2; PROTHROMBIN TIME 13.3 SECONDS (9.7-12.2)
[2017-07-23 09:06] LABS: HEPATITIS C ANTIBODY NEGATIVE (NEGATIVE)
--- NOTE | 2017-07-23 09:11 | CP.PCM.PN ---
<Pearl Mckeon - Last Filed: 07/23/17 18:14> Subjective - Date & Time of Evaluation Date of Evaluation: 07/23/17 Time of Evaluation: 07:00 - Subjective Subjective: Medicine Progress Note: Patient was seen and examined at bedside in the AM. Patient denies chest pain, palpitations, nausea, vomiting, diarrhea or constipation. Objective - Vital Signs/Intake and Output Vital Signs (last 24 hours): Temp Pulse Resp BP Pulse Ox 98.6 F 80 20 145/78 97 07/23/17 08:03 07/23/17 08:03 07/23/17 08:03 07/23/17 08:03 07/23/17 08:03 Intake and Output: 07/23/17 07/23/17 06:59 18:59 Intake Total 580 Output Total 2000 Balance -1420 - Medications Medications: Current Medications Acetylcysteine (Acetylcysteine 20%) 6 ml PO Q12 [facility] Stop: 07/24/17 10:01 Aspirin (Ecotrin) 81 mg PO DAILY [facility] Last Admin: 07/22/17 09:35 Dose: 81 mg Carvedilol (Coreg) 12.5 mg PO BID [facility] Last Admin: 07/22/17 18:03 Dose: 12.5 mg Enoxaparin Sodium (Lovenox) 30 mg SC DAILY [facility] Last Admin: 07/22/17 09:30 Dose: 30 mg Famotidine (Pepcid) 20 mg PO DAILY [facility] Last Admin: 07/22/17 09:39 Dose: 20 mg Fluticasone Propionate (Flonase) 0 spr TRISTEN DAILY [facility] Last Admin: 07/22/17 10:00 Dose: 1 spr Furosemide (Lasix) 40 mg IVP Q8H [facility] Last Admin: 07/23/17 06:00 Dose: 40 mg Hydralazine HCl (Apresoline) 50 mg PO TID [facility] Last Admin: 07/22/17 18:03 Dose: 50 mg Nicotine (Nicoderm Cq) 1 patch TD DAILY [facility] Last Admin: 07/22/17 09:30 Dose: 1 patch Nitroglycerin (Nitrostat Sl Tab) 0.4 mg SL Q5M PRN PRN Reason: Pain, severe (8-10) Promethazine HCl/Dextromethorphan (Phenergan Dm Syrup) 5 ml PO Q6H PRN PRN Reason: Cough Last Admin: 07/22/17 18:03 Dose: 5 ml Rosuvastatin Calcium (Crestor) 10 mg PO HS [facility] Last Admin: 07/22/17 21:42 Dose: 10 mg Spironolactone (Aldactone) 25 mg PO BID [facility] Last Admin: 07/22/17 18:03 Dose: 25 mg Tiotropium [place] (Spiriva) 18 mcg INH RQ24 [facility] Last Admin: 07/23/17 07:00 Dose: 18 mcg - Labs Labs: 07/23/17 06:20 07/23/17 06:20 PT 13.3 SECONDS (9.7-12.2) H 07/23/17 08:53 INR 1.2 07/23/17 08:53 APTT 39 SECONDS (21-34) H 07/23/17 08:53 - Constitutional Appears: No Acute Distress - Head Exam Head Exam: NORMAL INSPECTION - Eye Exam Eye Exam: EOMI, Normal appearance - ENT Exam ENT Exam: Mucous Membranes Moist - Respiratory Exam Respiratory Exam: NORMAL BREATHING PATTERN - Cardiovascular Exam Cardiovascular Exam: REGULAR RHYTHM, +S1, +S2 - GI/Abdominal Exam GI & Abdominal Exam: Soft, Normal Bowel Sounds. absent: Tenderness - Extremities Exam Extremities Exam: Pedal Edema - Neurological Exam Neurological Exam: Alert, Awake, Oriented x3 - Psychiatric Exam Psychiatric exam: Normal Affect, Normal Mood - Skin Skin Exam: Warm Assessment and Plan - Assessment and Plan (Free Text) Assessment: 1.) Acute systolic (congestive) heart failure Monitor on telemetry Cardiology Consult: Dr. Dewitt --> help appreciated * s/p Cardiac Cath 07/23/17: per Dr. Dewitt's note: showing non-obstructive CMP; severely elevated filling pressures with low CO --> f/u official report * Patient was transferred to ICU after and started on a Milrinone and Lasix drip BNP 59179 Troponinx3: 0.79, 0.0.083, 0.1010 - Images * EKGs: LVH, Twave inversions, ST depressions; f/u official report * CXR: no active disease * ECHO: f/u report * ECHO (01/2017): mild-moderate LVH, global hypokinesis of LV; severely impaired systolic and diastolic dysfunction; EF 25-30%; RV mildly dilated; biatrial enlarged; moderate pulmonary HTN; trace pericardial effusion. - Medications: * Aspirin 81 mg PO daily * Nitrostat 0.4 SL Q5m PRN * Coreg 12.5mg PO BID * Hydralazine 25mg PO TID * Crestor 10mg PO HS * Aldactone 25mg PO BID 2.) Dyspnea Pulm Consult: Dr. Jacobo --> help appreciated - per note patient may benefit from CPAP at night Wells risk: 4.5, r/o DVT * Given lovenox 120mg SC x1 - D-dimer: 395 - BNP 40786 - Place on BiPAP - Images: * CXR: no active disease * VQ scan: low probability of PE * Venous dopplers: negative * ECHO (07/20/17): LA and LV dilated; LV EF 30%; LV filling pressure probably elevated * ECHO (01/2017): mild-moderate LVH, global hypokinesis of LV; severely impaired systolic and diastolic dysfunction; EF 25-30%; RV mildly dilated; biatrial enlarged; moderate pulmonary HTN; trace pericardial effusion. - Medications: * Lasix 40mg IV q8h * Phenergan prn cough * Spiriva 3.) Hypertensive urgency At admission, 172/118, 166/113, 183/138 Cardiology consult: Dr. Dewitt --> help appreciated - Medications: * Coreg 12.5mg PO BID, * Hydralazine 25mg PO TID - Continue to monitor vitals 4.) Renal insufficiency Nephrology Consult: Dr. Chang --> help appreciated BUN/Cr 28/1.8 at admission * Bladder scan * Renal U/S - normal * Continue to monitor H/H * Monitor intake/output 5.) Morbidly obese - A1c: 5.9 - Tchol 133, Trig 64, LDL 77, HDL 37 - TSH 2.91 6.) Hypokalemia - K 3.5 - Repleated - Continue to Monitor 7.) Hypomagnesia - Mg 1.9 (WNL) - Continue to Monitor 8.) Tobacco use - Nicoderm patch 9.) Prophylactic measure - Lovenox 30mg SC daily - hold at midnight - C/I SCDs due to LE edema - Pepcid 20mg PO daily - Intake and output - Monitor daily weight Disposition: Transferred to ICU s/p cardiac cath 07/23/[address] Fercho Mckeon PGY-1 <Cuco Brantley - Last Filed: 07/23/17 19:31> Objective - Vital Signs/Intake and Output Vital Signs (last 24 hours): Temp Pulse Resp BP Pulse Ox 98.3 F 76 11 L 106/52 L 96 07/23/17 19:00 07/23/17 19:04 07/23/17 19:04 07/23/17 19:04 07/23/17 19:04 Intake and Output: 07/23/17 07/24/17 18:59 06:59 Intake Total 232.8 164.9 Output Total 400 250 Balance -167.2 -85.1 - Medications Medications: Current Medications Acetylcysteine (Acetylcysteine 20%) 6 ml PO Q12 [facility] Stop: 07/24/17 10:01 Last Admin: 07/23/17 11:09 Dose: Not Given Aspirin (Ecotrin) 81 mg PO DAILY [facility] Last Admin: 07/23/17 11:10 Dose: Not Given Carvedilol (Coreg) 12.5 mg PO BID [facility] Last Admin: 07/23/17 17:19 Dose: 12.5 mg Enoxaparin Sodium (Lovenox) 30 mg SC DAILY [facility] Last Admin: 07/22/17 09:30 Dose: 30 mg Famotidine (Pepcid) 20 mg PO BID [facility] Last Admin: 07/23/17 17:19 Dose: 20 mg Fluticasone Propionate (Flonase) 0 spr TRISTEN DAILY [facility] Last Admin: 07/23/17 11:10 Dose: Not Given Heparin Sodium (Porcine) (Heparin) 5,000 units SC Q8H [facility] Last Admin: 07/23/17 17:19 Dose: 5,000 units Hydralazine HCl (Apresoline) 50 mg PO TID [facility] Last Admin: 07/23/17 17:19 Dose: 50 mg Milrinone Lactate/Dextrose 20 (mg/ Dextrose) 100 mls @ 9.9 mls/hr IV .Q10H7M [facility]; 0.25 MCG/KG/MIN PRN Reason: Protocol Last Admin: 07/23/17 17:02 Dose: Not Given Furosemide 100 mg/ Sodium (Chloride) 100 mls @ 5 mls/hr IVP .Q20H [facility]; 5 MG/HR PRN Reason: Protocol Last Admin: 07/23/17 16:00 Dose: 5 mls/hr Nitroglycerin/Dextrose (Nitroglycerin 50 Mg/250 Ml D5w) 50 mg in 250 mls @ 1.5 mls/hr IV .Q24H [facility]; 5 MCG/MIN PRN Reason: Protocol Last Admin: 07/23/17 16:00 Dose: 5 mcg/min, 1.5 mls/hr Nicotine (Nicoderm Cq) 1 patch TD DAILY [facility] Last Admin: 07/23/17 11:11 Dose: Not Given Nitroglycerin (Nitrostat Sl Tab) 0.4 mg SL Q5M PRN PRN Reason: Pain, severe (8-10) Promethazine HCl/Dextromethorphan (Phenergan Dm Syrup) 5 ml PO Q6H PRN PRN Reason: Cough Last Admin: 07/22/17 18:03 Dose: 5 ml Rosuvastatin Calcium (Crestor) 10 mg PO HS [facility] Last Admin: 07/22/17 21:42 Dose: 10 mg Tiotropium [place] (Spiriva) 18 mcg INH RQ24 [facility] Last Admin: 07/23/17 07:00 Dose: 18 mcg - Labs Labs: 07/23/17 06:20 07/23/17 06:20 PT 13.3 SECONDS (9.7-12.2) H 07/23/17 08:53 INR 1.2 07/23/17 08:53 APTT 33 SECONDS (21-34) D 07/23/17 17:14 Attending/Attestation - Attestation I have personally seen and examined this patient.: Yes I have fully participated in the care of the patient.: Yes I have reviewed all pertinent clinical information, including history, physical exam and plan: Yes Notes (Text): 07/23/17 19:20 Patient was seen and examined at 10:45 AM 07/23/17 in the Cardiac Catheterization Unit Exam, assessment and plan were thoroughly gone over with the resident. Also on ROS: NOT possible as patient is still sedated Also on Exam: HEENT: Nasal Turbinates are less erythematous and edematous Respiratory: Bilateral lower lobes expiratory wheezing GI: Central Obesity, Liver and spleen could not be palpated Ext: 1+ pitting edema from feet to the knees bilaterally Assessments: 1). Acute Systolic HF Weight today is 301 which is down from 308 on admission ASA Coreg Crestor Lasix Aldactone Echo 07/20/17 was a poor study: please see Echo report 01/2017 which showed EF 25- 30%, mild/moderate LVH, glogal hypokinesis of LV, severely impaired systolic/ diastolic dysfunction, RV mildly dilated, moderate pulmonary HTN Patient is S/P Cardiac Catheterization 07/23/[address] 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 F/U official reading 2). Dyspnea V/Q Scan low probability Venous Duplex Bilateral LE negative Likely secondary to HF, Body Habitus, Nicotine Addiction 3). HTN Coreg 12.5 mg PO 2x/day Hydralazine increased to 50 mg PO TID 4). Renal Insufficiency Renal U/S is limited due to body habitus but there were no masses/ hydronephrosis appreciated Nephrology Dr. Chang 5). Morbid Obesity 6). Nicotine Addiction Nicotine Patch 21 mg TD 1x/day Spiriva 2 PO INH 1 capsule via handihaler device 1x/day 7). Moderate Pulmonary HTN Pulmonology Dr. Jacobo: patient will need sleep study through the [facility] and then possible CPAP at night 8). Hypokalemia Repleated Cuco Brantley D.O.
[2017-07-23] MEDS ORDERED: Midazolam 2 MG/2 ML VIAL ONE (09:22)
[2017-07-23] MEDS ORDERED: Iodixanol 320 MG/ML 100 ML BOTTLE IV ONE (09:23)
[2017-07-23] MEDS ORDERED: Lidocaine 2% Inj (20ml) ONE (09:33)
--- NOTE | 2017-07-23 09:43 | CP.PCM.PN ---
<Robin Soriano - Last Filed: 07/23/17 10:48> Subjective - Date & Time of Evaluation Date of Evaluation: 07/23/17 Time of Evaluation: 09:40 - Subjective Subjective: Cardiology Progress Note for Dr. Dewitt Pt seen and examined at bedside. No acute overnight events. Pt has trouble lying supine. Pt denied CP, SOB, n/v/d, abdominal pain, fever, chills, DOMINGUEZ or dizziness. Objective - Vital Signs/Intake and Output Vital Signs (last 24 hours): Temp Pulse Resp BP Pulse Ox 98.6 F 80 20 145/78 97 07/23/17 08:03 07/23/17 08:03 07/23/17 08:03 07/23/17 08:03 07/23/17 08:03 Intake and Output: 07/23/17 07/23/17 06:59 18:59 Intake Total 580 Output Total 2000 Balance -1420 - Medications Medications: Current Medications Acetylcysteine (Acetylcysteine 20%) 6 ml PO Q12 [facility] Stop: 07/24/17 10:01 Aspirin (Ecotrin) 81 mg PO DAILY [facility] Last Admin: 07/22/17 09:35 Dose: 81 mg Carvedilol (Coreg) 12.5 mg PO BID [facility] Last Admin: 07/22/17 18:03 Dose: 12.5 mg Enoxaparin Sodium (Lovenox) 30 mg SC DAILY [facility] Last Admin: 07/22/17 09:30 Dose: 30 mg Famotidine (Pepcid) 20 mg PO DAILY [facility] Last Admin: 07/22/17 09:39 Dose: 20 mg Fluticasone Propionate (Flonase) 0 spr TRISTEN DAILY [facility] Last Admin: 07/22/17 10:00 Dose: 1 spr Furosemide (Lasix) 40 mg IVP Q8H [facility] Last Admin: 07/23/17 06:00 Dose: 40 mg Hydralazine HCl (Apresoline) 50 mg PO TID [facility] Last Admin: 07/22/17 18:03 Dose: 50 mg Nicotine (Nicoderm Cq) 1 patch TD DAILY [facility] Last Admin: 07/22/17 09:30 Dose: 1 patch Nitroglycerin (Nitrostat Sl Tab) 0.4 mg SL Q5M PRN PRN Reason: Pain, severe (8-10) Promethazine HCl/Dextromethorphan (Phenergan Dm Syrup) 5 ml PO Q6H PRN PRN Reason: Cough Last Admin: 07/22/17 18:03 Dose: 5 ml Rosuvastatin Calcium (Crestor) 10 mg PO HS [facility] Last Admin: 07/22/17 21:42 Dose: 10 mg Spironolactone (Aldactone) 25 mg PO BID [facility] Last Admin: 07/22/17 18:03 Dose: 25 mg Tiotropium [place] (Spiriva) 18 mcg INH RQ24 [facility] Last Admin: 07/23/17 07:00 Dose: 18 mcg - Labs Labs: 07/23/17 06:20 07/23/17 06:20 PT 13.3 SECONDS (9.7-12.2) H 07/23/17 08:53 INR 1.2 07/23/17 08:53 APTT 39 SECONDS (21-34) H 07/23/17 08:53 - Constitutional Appears: No Acute Distress - Head Exam Head Exam: NORMAL INSPECTION - Eye Exam Eye Exam: Normal appearance - ENT Exam ENT Exam: Normal Exam - Neck Exam Neck Exam: Normal Inspection - Respiratory Exam Respiratory Exam: Clear to Ausculation Bilateral. absent: Rales, Rhonchi, Wheezes - Cardiovascular Exam Cardiovascular Exam: RRR, +S1, +S2. absent: Gallop, Rubs, Murmur - GI/Abdominal Exam GI & Abdominal Exam: Soft. absent: Distended, Guarding, Tenderness, Rebound - Extremities Exam Extremities Exam: Pedal Edema (2+ b/l LE) - Neurological Exam Neurological Exam: Alert, Awake, Oriented x3 - Skin Skin Exam: Dry, Intact, Normal Color, Warm Assessment and Plan - Assessment and Plan (Free Text) Assessment: 42 yo M with PMH of LAZARO, HTN, and chronic CHF with reduced EF presents to with SOB and LE edema, will be evaluated and treated for acute CHF exacerbation. Plan: 1. 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 Hypertensive Urgency, resolved - Cont hydralazine, coreg, aldactone, lasix - Cont to monitor 3. TOM on CKD - Management per Nephro 4. Hypokalemia - Cont to monitor and replete as needed GI/DVT PPx - Per primary Pt seen and discussed in detail with Dr. Esdras Soriano, PGY1 <René Dewitt - Last Filed: 07/23/17 18:02> Objective - Vital Signs/Intake and Output Vital Signs (last 24 hours): Temp Pulse Resp BP Pulse Ox 98.2 F 86 15 166/107 H 99 07/23/17 17:00 07/23/17 17:41 07/23/17 17:41 07/23/17 17:42 07/23/17 17:41 Intake and Output: 07/23/17 07/23/17 06:59 18:59 Intake Total 580 Output Total 2000 Balance -1420 - Medications Medications: Current Medications Acetylcysteine (Acetylcysteine 20%) 6 ml PO Q12 [facility] Stop: 07/24/17 10:01 Last Admin: 07/23/17 11:09 Dose: Not Given Aspirin (Ecotrin) 81 mg PO DAILY [facility] Last Admin: 07/23/17 11:10 Dose: Not Given Carvedilol (Coreg) 12.5 mg PO BID [facility] Last Admin: 07/23/17 17:19 Dose: 12.5 mg Enoxaparin Sodium (Lovenox) 30 mg SC DAILY [facility] Last Admin: 07/22/17 09:30 Dose: 30 mg Famotidine (Pepcid) 20 mg PO BID [facility] Last Admin: 07/23/17 17:19 Dose: 20 mg Fluticasone Propionate (Flonase) 0 spr TRISTEN DAILY [facility] Last Admin: 07/23/17 11:10 Dose: Not Given Heparin Sodium (Porcine) (Heparin) 5,000 units SC Q8H [facility] Last Admin: 07/23/17 17:19 Dose: 5,000 units Hydralazine HCl (Apresoline) 50 mg PO TID [facility] Last Admin: 07/23/17 17:19 Dose: 50 mg Milrinone Lactate/Dextrose 20 (mg/ Dextrose) 100 mls @ 9.9 mls/hr IV .Q10H7M [facility]; 0.25 MCG/KG/MIN PRN Reason: Protocol Last Admin: 07/23/17 17:02 Dose: Not Given Furosemide 100 mg/ Sodium (Chloride) 100 mls @ 5 mls/hr IVP .Q20H [facility]; 5 MG/HR PRN Reason: Protocol Last Admin: 07/23/17 16:00 Dose: 5 mls/hr Nitroglycerin/Dextrose (Nitroglycerin 50 Mg/250 Ml D5w) 50 mg in 250 mls @ 1.5 mls/hr IV .Q24H [facility]; 5 MCG/MIN PRN Reason: Protocol Last Admin: 07/23/17 16:00 Dose: 5 mcg/min, 1.5 mls/hr Nicotine (Nicoderm Cq) 1 patch TD DAILY [facility] Last Admin: 07/23/17 11:11 Dose: Not Given Nitroglycerin (Nitrostat Sl Tab) 0.4 mg SL Q5M PRN PRN Reason: Pain, severe (8-10) Promethazine HCl/Dextromethorphan (Phenergan Dm Syrup) 5 ml PO Q6H PRN PRN Reason: Cough Last Admin: 07/22/17 18:03 Dose: 5 ml Rosuvastatin Calcium (Crestor) 10 mg PO HS [facility] Last Admin: 07/22/17 21:42 Dose: 10 mg Tiotropium [place] (Spiriva) 18 mcg INH RQ24 [facility] Last Admin: 07/23/17 07:00 Dose: 18 mcg - Labs Labs: 07/23/17 06:20 07/23/17 06:20 PT 13.3 SECONDS (9.7-12.2) H 07/23/17 08:53 INR 1.2 07/23/17 08:53 APTT 33 SECONDS (21-34) D 07/23/17 17:14 Attending/Attestation - Attestation I have personally seen and examined this patient.: Yes I have fully participated in the care of the patient.: Yes I have reviewed all pertinent clinical information, including history, physical exam and plan: Yes Notes (Text): 07/23/17 18:00 s/p CHCx showing non-obstructive CMP severely elevated filling pressures with low CO initiate on IV lasix and IV milrinone
[2017-07-23 10:26] LABS: ARTERIAL BLOOD GAS HCO3 27.5 mmol/L (21-28); ARTERIAL BLOOD GAS HEMOGLOBIN 13.9 g/dL (11.7-17.4); ARTERIAL BLOOD GAS O2 SAT 80.6 % (95-98); ARTERIAL BLOOD GAS PCO2 64 mm/Hg (35-45); ARTERIAL BLOOD GAS PH 7.31 (7.35-7.45); ARTERIAL BLOOD GAS PO2 43 mm/Hg (80-100); ARTERIAL BLOOD GAS TCO2 34.2 mmol/L (22-28)
[2017-07-23 10:28] LABS: ARTERIAL BLOOD GAS HCO3 27.4 mmol/L (21-28); ARTERIAL BLOOD GAS O2 SAT 89.6 % (95-98); ARTERIAL BLOOD GAS PCO2 57 mm/Hg (35-45); ARTERIAL BLOOD GAS PH 7.34 (7.35-7.45); ARTERIAL BLOOD GAS PO2 55 mm/Hg (80-100); ARTERIAL BLOOD GAS TCO2 32.5 mmol/L (22-28)
[2017-07-23] MEDS ORDERED: Nitroglycerin 50mg in D5W 50 MG/250 ML BOTTLE IV ONE (10:30)
[2017-07-23 10:32] LABS: ARTERIAL BLOOD GAS HCO3 27.9 mmol/L (21-28); ARTERIAL BLOOD GAS HEMOGLOBIN 14.3 g/dL (11.7-17.4); ARTERIAL BLOOD GAS PCO2 58 mm/Hg (35-45); ARTERIAL BLOOD GAS PH 7.34 (7.35-7.45); ARTERIAL BLOOD GAS PO2 261 mm/Hg (80-100); ARTERIAL BLOOD GAS TCO2 33.1 mmol/L (22-28)
[2017-07-23] MEDS ORDERED: Furosemide 100 MG in Sodium Chloride 0.9% 90 ML IVP SCH (10:45)
[2017-07-23] MEDS: Acetylcysteine 20% Inhal Soln (4ml) PO SCH ×2 (11:09→22:02)
[2017-07-23] MEDS: Fluticasone Nasal 50 mcg/Spray NAS SCH (11:10)
--- NOTE | 2017-07-23 14:03 | CARD ---
APPROVED REPORT EKG Measurement Heart [id number] [id number] <Conclusion> Normal sinus rhythm Left axis deviation Nonspecific intraventricular block T wave abnormality, consider lateral ischemia Abnormal ECG
--- NOTE | 2017-07-23 14:03 | CARD ---
APPROVED REPORT EKG Measurement Heart [id number] <Conclusion> Normal sinus rhythm with sinus arrhythmia Possible Left atrial enlargement RSR' or QR pattern in V1 suggests right ventricular conduction delay Left anterior fascicular block baseline artifact. please repeat Abnormal ECG
--- NOTE | 2017-07-23 14:14 | CARD ---
APPROVED REPORT EKG Measurement Heart [id number] <Conclusion> Sinus tachycardia Left atrial enlargement Left axis deviation Nonspecific intraventricular block T wave abnormality, consider lateral ischemia Abnormal ECG
[2017-07-23] MEDS: Milrinone 20 MG in Dextrose 5% In Water 80 ML IV SCH ×3 (15:00→20:07)
--- NOTE | 2017-07-23 15:30 | CP.PCM.CON ---
<Moy Brand - Last Filed: 07/23/17 17:18> History of Present Illness - History of Present Illness History of Present Illness: CCU Consult Note HPI Patient is a 42yoM with h/o HTN, CHF, LAZARO. Came to ER 2/3 for SOB, dry cough, and b/l LE edema. Was admitted and received a right and left-sided catheterization today. Echo showed EF of 25-30%. Patient was started on milrinone and then transferred to ICU for closer monitoring. PMHx: LAZARO, HTN, CHF PSxHx: Appy NKDA FHx: non-contributory Smoker: 10py; Social Drinker; denies drug use Review of Systems - Review of Systems Review of Systems: per HPI Past Patient History - Past Medical History & Family History Past Medical History?: No - Past Social History Smoking Status: Heavy Smoker > 10 Cigarettes Daily - CARDIAC Hx Congestive Heart Failure: Yes - PULMONARY Hx Respiratory Disorders: Yes Hx Bronchitis: Yes - NEUROLOGICAL Hx Neurological Disorder: No - HEENT Hx HEENT Problems: No - RENAL Hx Chronic Kidney Disease: No - ENDOCRINE/METABOLIC Hx Endocrine Disorders: No - HEMATOLOGICAL/ONCOLOGICAL Hx Blood Disorders: No - INTEGUMENTARY Hx Dermatological Problems: No - MUSCULOSKELETAL/RHEUMATOLOGICAL Hx Falls: No - GASTROINTESTINAL Hx Gastrointestinal Disorders: No - PSYCHIATRIC Hx Substance Use: No - SURGICAL HISTORY Hx Appendectomy: Yes - ANESTHESIA Hx Anesthesia: Yes Hx Anesthesia Reactions: No Meds Allergies/Adverse Reactions: Allergies Allergy/AdvReac Type Severity Reaction Status Date / Time No Known Allergies Allergy Verified 07/19/17 08:17 - Medications Medications: Current Medications Acetylcysteine (Acetylcysteine 20%) 6 ml PO Q12 [facility] Stop: 07/24/17 10:01 Last Admin: 07/23/17 11:09 Dose: Not Given Aspirin (Ecotrin) 81 mg PO DAILY [facility] Last Admin: 07/23/17 11:10 Dose: Not Given Carvedilol (Coreg) 12.5 mg PO BID [facility] Last Admin: 07/23/17 11:10 Dose: Not Given Enoxaparin Sodium (Lovenox) 30 mg SC DAILY [facility] Last Admin: 07/22/17 09:30 Dose: 30 mg Famotidine (Pepcid) 20 mg PO DAILY [facility] Last Admin: 07/23/17 11:11 Dose: Not Given Fluticasone Propionate (Flonase) 0 spr TRISTEN DAILY [facility] Last Admin: 07/23/17 11:10 Dose: Not Given Hydralazine HCl (Apresoline) 50 mg PO TID [facility] Last Admin: 07/23/17 11:10 Dose: Not Given Milrinone Lactate/Dextrose 20 (mg/ Dextrose) 100 mls @ 9.9 mls/hr IV .Q10H7M [place]; 0.25 MCG/KG/MIN PRN Reason: Protocol Furosemide 100 mg/ Sodium (Chloride) 100 mls @ 5 mls/hr IVP .Q20H [facility]; 5 MG/HR PRN Reason: Protocol Nicotine (Nicoderm Cq) 1 patch TD DAILY [facility] Last Admin: 07/23/17 11:11 Dose: Not Given Nitroglycerin (Nitrostat Sl Tab) 0.4 mg SL Q5M PRN PRN Reason: Pain, severe (8-10) Promethazine HCl/Dextromethorphan (Phenergan Dm Syrup) 5 ml PO Q6H PRN PRN Reason: Cough Last Admin: 07/22/17 18:03 Dose: 5 ml Rosuvastatin Calcium (Crestor) 10 mg PO HS [facility] Last Admin: 07/22/17 21:42 Dose: 10 mg Spironolactone (Aldactone) 25 mg PO BID [facility] Last Admin: 07/23/17 11:09 Dose: Not Given Tiotropium [place] (Spiriva) 18 mcg INH RQ24 [facility] Last Admin: 07/23/17 07:00 Dose: 18 mcg Physical Exam - Constitutional Appears: Well, No Acute Distress - Head Exam Head Exam: ATRAUMATIC, NORMAL INSPECTION, NORMOCEPHALIC - Eye Exam Eye Exam: EOMI Pupil Exam: NORMAL ACCOMODATION - ENT Exam ENT Exam: Mucous Membranes Moist - Respiratory Exam Respiratory Exam: Clear to Auscultation Bilateral, NORMAL BREATHING PATTERN - Cardiovascular Exam Cardiovascular Exam: REGULAR RHYTHM - GI/Abdominal Exam GI & Abdominal Exam: Normal Bowel Sounds, Soft. absent: Distended, Tenderness - Extremities Exam Extremities exam: Negative for: joint swelling, tenderness - Neurological Exam Neurological exam: Alert, Oriented x3 - Psychiatric Exam Psychiatric exam: Normal Affect, Normal Mood - Skin Skin Exam: Dry, Intact, Normal Color, Warm Results - Vital Signs Recent Vital Signs: Last Vital Signs Temp 98.6 F 07/23/17 08:03 Pulse 80 07/23/17 13:13 Resp 20 07/23/17 08:03 BP 145/78 07/23/17 08:03 Pulse Ox 97 07/23/17 08:03 - Labs Result Diagrams: 07/23/17 06:20 07/23/17 06:20 Labs: Laboratory Results - last 24 hr 07/22/17 07/22/17 07/23/17 18:02 20:56 06:15 WBC RBC Hgb Hct MCV MCH MCHC RDW Plt Count MPV Neut % (Auto) Lymph % (Auto) [place] % (Auto) Eos % (Auto) Baso % (Auto) Neut # (Auto) Lymph # (Auto) [place] # (Auto) Eos # (Auto) Baso # (Auto) Neutrophils % (Manual) Lymphocytes % (Manual) Monocytes % (Manual) Platelet Estimate RBC Morphology PT INR APTT Puncture Site pCO2 pO2 HCO3 ABG pH ABG Total CO2 ABG O2 Saturation ABG Base Excess ABG Hemoglobin ABG Carboxyhemoglobin POC ABG HHb (Measured) ABG Methemoglobin Micky Test Hgb O2 Saturation Blood Gas Comments Crit Value Called To Crit Value Called By Crit Value Read Back Blood Gas Notified Time Sodium Potassium Chloride Carbon Dioxide Anion Gap BUN Creatinine Est GFR ( Amer) Est GFR (Non-Af Amer) POC Glucose (mg/dL) 103 124 H 86 Random Glucose Calcium Phosphorus Magnesium Total Bilirubin AST ALT Alkaline Phosphatase Total Protein Albumin Globulin Albumin/Globulin Ratio Complement C3 Complement C4 Hep Bs Antigen Hepatitis C Antibody HIV 1&2 Antibody Screen 07/23/17 07/23/17 07/23/17 06:20 06:20 06:20 WBC 2.6 L RBC 5.37 Hgb 14.0 Hct 42.5 MCV 79.3 L MCH 26.1 L MCHC 32.9 L RDW 14.6 H Plt Count 161 MPV 7.6 Neut % (Auto) 46.6 L Lymph % (Auto) 22.7 [place] % (Auto) 28.4 H Eos % (Auto) 1.2 Baso % (Auto) 1.1 Neut # (Auto) 1.2 L Lymph # (Auto) 0.[address] # (Auto) 0.7 Eos # (Auto) 0.0 Baso # (Auto) 0.0 Neutrophils % (Manual) 52 Lymphocytes % (Manual) 22 Monocytes % (Manual) 26 H Platelet Estimate Normal RBC Morphology Normal PT INR APTT Puncture Site pCO2 pO2 HCO3 ABG pH ABG Total CO2 ABG O2 Saturation ABG Base Excess ABG Hemoglobin ABG Carboxyhemoglobin POC ABG HHb (Measured) ABG Methemoglobin Micky Test Hgb O2 Saturation Blood Gas Comments Crit Value Called To Crit Value Called By Crit Value Read Back Blood Gas Notified Time Sodium 134 Potassium 3.4 L Chloride 93 L Carbon Dioxide 31 H Anion Gap 14 BUN 25 H Creatinine 1.7 H Est GFR ( Amer) 54 Est GFR (Non-Af Amer) 45 POC Glucose (mg/dL) Random Glucose 90 Calcium 8.0 L Phosphorus 3.1 Magnesium 1.8 Total Bilirubin 0.8 AST 40 ALT 35 Alkaline Phosphatase 80 Total Protein 6.1 L Albumin 3.4 L Globulin 2.8 Albumin/Globulin Ratio 1.2 Complement C3 Complement C4 Hep Bs Antigen Negative Hepatitis C Antibody Negative HIV 1&2 Antibody Screen 07/23/17 07/23/17 07/23/17 06:20 06:20 08:53 WBC RBC Hgb Hct MCV MCH MCHC RDW Plt Count MPV Neut % (Auto) Lymph % (Auto) [place] % (Auto) Eos % (Auto) Baso % (Auto) Neut # (Auto) Lymph # (Auto) [place] # (Auto) Eos # (Auto) Baso # (Auto) Neutrophils % (Manual) Lymphocytes % (Manual) Monocytes % (Manual) Platelet Estimate RBC Morphology PT 13.3 H INR 1.2 APTT 39 H Puncture Site pCO2 pO2 HCO3 ABG pH ABG Total CO2 ABG O2 Saturation ABG Base Excess ABG Hemoglobin ABG Carboxyhemoglobin POC ABG HHb (Measured) ABG Methemoglobin Micky Test Hgb O2 Saturation Blood Gas Comments Crit Value Called To Crit Value Called By Crit Value Read Back Blood Gas Notified Time Sodium Potassium Chloride Carbon Dioxide Anion Gap BUN Creatinine Est GFR ( Amer) Est GFR (Non-Af Amer) POC Glucose (mg/dL) Random Glucose Calcium Phosphorus Magnesium Total Bilirubin AST ALT Alkaline Phosphatase Total Protein Albumin Globulin Albumin/Globulin Ratio Complement C3 106.0 Complement C4 26.5 Hep Bs Antigen Hepatitis C Antibody HIV 1&2 Antibody Screen Negative 07/23/17 07/23/17 07/23/17 10:21 10:21 10:21 WBC RBC Hgb Hct MCV MCH MCHC RDW Plt Count MPV Neut % (Auto) Lymph % (Auto) [place] % (Auto) Eos % (Auto) Baso % (Auto) Neut # (Auto) Lymph # (Auto) [place] # (Auto) Eos # (Auto) Baso # (Auto) Neutrophils % (Manual) Lymphocytes % (Manual) Monocytes % (Manual) Platelet Estimate RBC Morphology PT INR APTT Puncture Site Line Line Line pCO2 64 H 57 H 58 H pO2 43 L* 55 L 261 H HCO3 27.5 27.4 27.9 ABG pH 7.31 L 7.34 L 7.34 L ABG Total CO2 34.2 H 32.5 H 33.1 H ABG O2 Saturation 80.6 L 89.6 L 100.0 H ABG Base Excess 4.0 H 3.5 H 3.8 H ABG Hemoglobin 13.9 14.0 14.3 ABG Carboxyhemoglobin 2.1 H 2.2 H 2.0 H POC ABG HHb (Measured) 18.8 H 10.0 H 0.0 ABG Methemoglobin 1.2 1.3 1.2 Micky Test Na Na Na Hgb O2 Saturation 78.0 L 86.5 L 96.8 Blood Gas Comments Pa Ra Ao Crit Value Called To Dr steward Crit Value Called By Ruth Ann payton gun perforator loader Crit Value Read Back Y N N Blood Gas Notified Time 1030 Sodium Potassium Chloride Carbon Dioxide Anion Gap BUN Creatinine Est GFR ( Amer) Est GFR (Non-Af Amer) POC Glucose (mg/dL) Random Glucose Calcium Phosphorus Magnesium Total Bilirubin AST ALT Alkaline Phosphatase Total Protein Albumin Globulin Albumin/Globulin Ratio Complement C3 Complement C4 Hep Bs Antigen Hepatitis C Antibody HIV 1&2 Antibody Screen Assessment & Plan - Assessment and Plan (Free Text) Assessment: This is a 75yoM with chronic CHF with EF of 30%. Plan: Cards: HTN, CHF - ASA 81mg - Coreg 12.5mg - Lovenox 30mg - Furosemide 100ml @ 5ml/hr - Hydralazine 50mg TID - Milrinone - Nitro 0.4 SL 0.5mins PRN - Crestor 10mg - Spironolactone 25mg BID - Esdras = Gift Shop Manager Pulm: LAZARO - Spiriva 18ug inh - Donnell = Senior Validation Engineer PPx: - Pepcid 20mg Labs: f/u with pro-BNP to be drawn tomorrow <Tiago Jacobo S - Last Filed: 07/23/17 18:00> Meds - Medications Medications: Current Medications Acetylcysteine (Acetylcysteine 20%) 6 ml PO Q12 [facility] Stop: 07/24/17 10:01 Last Admin: 07/23/17 11:09 Dose: Not Given Aspirin (Ecotrin) 81 mg PO DAILY [facility] Last Admin: 07/23/17 11:10 Dose: Not Given Carvedilol (Coreg) 12.5 mg PO BID [facility] Last Admin: 07/23/17 17:19 Dose: 12.5 mg Enoxaparin Sodium (Lovenox) 30 mg SC DAILY [facility] Last Admin: 07/22/17 09:30 Dose: 30 mg Famotidine (Pepcid) 20 mg PO BID [facility] Last Admin: 07/23/17 17:19 Dose: 20 mg Fluticasone Propionate (Flonase) 0 spr TRISTEN DAILY [facility] Last Admin: 07/23/17 11:10 Dose: Not Given Heparin Sodium (Porcine) (Heparin) 5,000 units SC Q8H [facility] Last Admin: 07/23/17 17:19 Dose: 5,000 units Hydralazine HCl (Apresoline) 50 mg PO TID [facility] Last Admin: 07/23/17 17:19 Dose: 50 mg Milrinone Lactate/Dextrose 20 (mg/ Dextrose) 100 mls @ 9.9 mls/hr IV .Q10H7M [facility]; 0.25 MCG/KG/MIN PRN Reason: Protocol Last Admin: 07/23/17 17:02 Dose: Not Given Furosemide 100 mg/ Sodium (Chloride) 100 mls @ 5 mls/hr IVP .Q20H [facility]; 5 MG/HR PRN Reason: Protocol Last Admin: 07/23/17 16:00 Dose: 5 mls/hr Nitroglycerin/Dextrose (Nitroglycerin 50 Mg/250 Ml D5w) 50 mg in 250 mls @ 1.5 mls/hr IV .Q24H [facility]; 5 MCG/MIN PRN Reason: Protocol Last Admin: 07/23/17 16:00 Dose: 5 mcg/min, 1.5 mls/hr Nicotine (Nicoderm Cq) 1 patch TD DAILY [facility] Last Admin: 07/23/17 11:11 Dose: Not Given Nitroglycerin (Nitrostat Sl Tab) 0.4 mg SL Q5M PRN PRN Reason: Pain, severe (8-10) Promethazine HCl/Dextromethorphan (Phenergan Dm Syrup) 5 ml PO Q6H PRN PRN Reason: Cough Last Admin: 07/22/17 18:03 Dose: 5 ml Rosuvastatin Calcium (Crestor) 10 mg PO HS [facility] Last Admin: 07/22/17 21:42 Dose: 10 mg Tiotropium [place] (Spiriva) 18 mcg INH RQ24 [facility] Last Admin: 07/23/17 07:00 Dose: 18 mcg Results - Vital Signs Recent Vital Signs: Last Vital Signs Temp 98.2 F 07/23/17 17:00 Pulse 86 07/23/17 17:41 Resp 15 07/23/17 17:41 BP 166/107 H 07/23/17 17:42 Pulse Ox 99 07/23/17 17:41 - Labs Result Diagrams: 07/23/17 06:20 07/23/17 06:20 Labs: Laboratory Results - last 24 hr 07/22/17 07/22/17 07/23/17 18:02 20:56 06:15 WBC RBC Hgb Hct MCV MCH MCHC RDW Plt Count MPV Neut % (Auto) Lymph % (Auto) [place] % (Auto) Eos % (Auto) Baso % (Auto) Neut # (Auto) Lymph # (Auto) [place] # (Auto) Eos # (Auto) Baso # (Auto) Neutrophils % (Manual) Lymphocytes % (Manual) Monocytes % (Manual) Platelet Estimate RBC Morphology PT INR APTT Puncture Site pCO2 pO2 HCO3 ABG pH ABG Total CO2 ABG O2 Saturation ABG Base Excess ABG Hemoglobin ABG Carboxyhemoglobin POC ABG HHb (Measured) ABG Methemoglobin Micky Test Hgb O2 Saturation Blood Gas Comments Crit Value Called To Crit Value Called By Crit Value Read Back Blood Gas Notified Time Sodium Potassium Chloride Carbon Dioxide Anion Gap BUN Creatinine Est GFR ( Amer) Est GFR (Non-Af Amer) POC Glucose (mg/dL) 103 124 H 86 Random Glucose Calcium Phosphorus Magnesium Total Bilirubin AST ALT Alkaline Phosphatase Total Protein Albumin Globulin Albumin/Globulin Ratio Complement C3 Complement C4 Hep Bs Antigen Hepatitis C Antibody HIV 1&2 Antibody Screen 07/23/17 07/23/17 07/23/17 06:20 06:20 06:20 WBC 2.6 L RBC 5.37 Hgb 14.0 Hct 42.5 MCV 79.3 L MCH 26.1 L MCHC 32.9 L RDW 14.6 H Plt Count 161 MPV 7.6 Neut % (Auto) 46.6 L Lymph % (Auto) 22.7 [place] % (Auto) 28.4 H Eos % (Auto) 1.2 Baso % (Auto) 1.1 Neut # (Auto) 1.2 L Lymph # (Auto) 0.[address] [place] # (Auto) 0.7 Eos # (Auto) 0.0 Baso # (Auto) 0.0 Neutrophils % (Manual) 52 Lymphocytes % (Manual) 22 Monocytes % (Manual) 26 H Platelet Estimate Normal RBC Morphology Normal PT INR APTT Puncture Site pCO2 pO2 HCO3 ABG pH ABG Total CO2 ABG O2 Saturation ABG Base Excess ABG Hemoglobin ABG Carboxyhemoglobin POC ABG HHb (Measured) ABG Methemoglobin Micky Test Hgb O2 Saturation Blood Gas Comments Crit Value Called To Crit Value Called By Crit Value Read Back Blood Gas Notified Time Sodium 134 Potassium 3.4 L Chloride 93 L Carbon Dioxide 31 H Anion Gap 14 BUN 25 H Creatinine 1.7 H Est GFR ( Amer) 54 Est GFR (Non-Af Amer) 45 POC Glucose (mg/dL) Random Glucose 90 Calcium 8.0 L Phosphorus 3.1 Magnesium 1.8 Total Bilirubin 0.8 AST 40 ALT 35 Alkaline Phosphatase 80 Total Protein 6.1 L Albumin 3.4 L Globulin 2.8 Albumin/Globulin Ratio 1.2 Complement C3 Complement C4 Hep Bs Antigen Negative Hepatitis C Antibody Negative HIV 1&2 Antibody Screen 07/23/17 07/23/17 07/23/17 06:20 06:20 08:53 WBC RBC Hgb Hct MCV MCH MCHC RDW Plt Count MPV Neut % (Auto) Lymph % (Auto) [place] % (Auto) Eos % (Auto) Baso % (Auto) Neut # (Auto) Lymph # (Auto) [place] # (Auto) Eos # (Auto) Baso # (Auto) Neutrophils % (Manual) Lymphocytes % (Manual) Monocytes % (Manual) Platelet Estimate RBC Morphology PT 13.3 H INR 1.2 APTT 39 H Puncture Site pCO2 pO2 HCO3 ABG pH ABG Total CO2 ABG O2 Saturation ABG Base Excess ABG Hemoglobin ABG Carboxyhemoglobin POC ABG HHb (Measured) ABG Methemoglobin Micky Test Hgb O2 Saturation Blood Gas Comments Crit Value Called To Crit Value Called By Crit Value Read Back Blood Gas Notified Time Sodium Potassium Chloride Carbon Dioxide Anion Gap BUN Creatinine Est GFR ( Amer) Est GFR (Non-Af Amer) POC Glucose (mg/dL) Random Glucose Calcium Phosphorus Magnesium Total Bilirubin AST ALT Alkaline Phosphatase Total Protein Albumin Globulin Albumin/Globulin Ratio Complement C3 106.0 Complement C4 26.5 Hep Bs Antigen Hepatitis C Antibody HIV 1&2 Antibody Screen Negative 07/23/17 07/23/17 07/23/17 10:21 10:21 10:21 WBC RBC Hgb Hct MCV MCH MCHC RDW Plt Count MPV Neut % (Auto) Lymph % (Auto) [place] % (Auto) Eos % (Auto) Baso % (Auto) Neut # (Auto) Lymph # (Auto) [place] # (Auto) Eos # (Auto) Baso # (Auto) Neutrophils % (Manual) Lymphocytes % (Manual) Monocytes % (Manual) Platelet Estimate RBC Morphology PT INR APTT Puncture Site Line Line Line pCO2 64 H 57 H 58 H pO2 43 L* 55 L 261 H HCO3 27.5 27.4 27.9 ABG pH 7.31 L 7.34 L 7.34 L ABG Total CO2 34.2 H 32.5 H 33.1 H ABG O2 Saturation 80.6 L 89.6 L 100.0 H ABG Base Excess 4.0 H 3.5 H 3.8 H ABG Hemoglobin 13.9 14.0 14.3 ABG Carboxyhemoglobin 2.1 H 2.2 H 2.0 H POC ABG HHb (Measured) 18.8 H 10.0 H 0.0 ABG Methemoglobin 1.2 1.3 1.2 Micky Test Na Na Na Hgb O2 Saturation 78.0 L 86.5 L 96.8 Blood Gas Comments Pa Ra Ao Crit Value Called To Dr steward Crit Value Called By Ruth Ann payton gun perforator loader Crit Value Read Back Y N N Blood Gas Notified Time 1030 Sodium Potassium Chloride Carbon Dioxide Anion Gap BUN Creatinine Est GFR ( Amer) Est GFR (Non-Af Amer) POC Glucose (mg/dL) Random Glucose Calcium Phosphorus Magnesium Total Bilirubin AST ALT Alkaline Phosphatase Total Protein Albumin Globulin Albumin/Globulin Ratio Complement C3 Complement C4 Hep Bs Antigen Hepatitis C Antibody HIV 1&2 Antibody Screen 07/23/17 07/23/17 17:08 17:14 WBC RBC Hgb Hct MCV MCH MCHC RDW Plt Count MPV Neut % (Auto) Lymph % (Auto) [place] % (Auto) Eos % (Auto) Baso % (Auto) Neut # (Auto) Lymph # (Auto) [place] # (Auto) Eos # (Auto) Baso # (Auto) Neutrophils % (Manual) Lymphocytes % (Manual) Monocytes % (Manual) Platelet Estimate RBC Morphology PT INR APTT 33 D Puncture Site pCO2 pO2 HCO3 ABG pH ABG Total CO2 ABG O2 Saturation ABG Base Excess ABG Hemoglobin ABG Carboxyhemoglobin POC ABG HHb (Measured) ABG Methemoglobin Micky Test Hgb O2 Saturation Blood Gas Comments Crit Value Called To Crit Value Called By Crit Value Read Back Blood Gas Notified Time Sodium Potassium Chloride Carbon Dioxide Anion Gap BUN Creatinine Est GFR ( Amer) Est GFR (Non-Af Amer) POC Glucose (mg/dL) 73 Random Glucose Calcium Phosphorus Magnesium Total Bilirubin AST ALT Alkaline Phosphatase Total Protein Albumin Globulin Albumin/Globulin Ratio Complement C3 Complement C4 Hep Bs Antigen Hepatitis C Antibody HIV 1&2 Antibody Screen Attending/Attestation - Attestation I have personally seen and examined this patient.: Yes I have fully participated in the care of the patient.: Yes I have reviewed all pertinent clinical information: Yes Notes (Text): 07/23/17 17:58 patient seen and examined in the intensive care unit. Case discussed with house staff in the morning rounds. Status post cardiac cath with low ejection fraction Patient transferred to ICU for milrinone drip monitor renal function Intake and output Continue spiriva and nebulizer treatment CPAP at night for sleep apnea Nitro drip for hypertension
[2017-07-23] MEDS: Furosemide 100 MG in Sodium Chloride 0.9% 90 ML IVP SCH (16:00)
[2017-07-23] MEDS ORDERED: Nitroglycerin 50mg in D5W 50 MG/250 ML BOTTLE IV SCH (16:45)
--- NOTE | 2017-07-23 17:18 | PCM.PROC ---
Procedures Attestation:: I certify that I have explained the specified Operation(s) or Procedure(s), risks, benefits and reasonable alternatives to the Patient and/or other person responsible. The opportunity was given to ask questions and all questions answered - Central Line Placement Right Internal Jugular Triple Lumen Catheter Aseptic technique was employed throughout the procedure: Hand Hygiene done prior to procedure, Full sterile barriers (mask, hair cover, sterile gown, sterile gloves), Full body sterile drape, Chloraprep Antiseptic: 30 second prep for IJ or SC sites CVP Time Out Performed: Yes Pt. Placed on Pulse Ox Monitor: Yes Central Line Prep: Povidone-Iodine 1% Local Anesthesia Used: Lidocaine 1% Ultrasound Used for Placement: Yes Central Line Lumen Inserted: triple Central Line Length: 16 cm Post Procedure: Sutured in Place, Good Blood Return, All Ports Aspirated, Flushed, Capped, Sterile Dressing Applied Secured by: Suture Post procedure dressing: Gauze, Clear vapor permeable, Chlorhexidine disc ( Biopatch) Post Procedure X-Ray: Yes Patient Tolerated Procedure: Well Immediate Complications: None
--- NOTE | 2017-07-23 19:08 | CP.PCM.PN ---
Objective - Vital Signs/Intake and Output Vital Signs (last 24 hours): Temp Pulse Resp BP Pulse Ox 98.3 F 82 17 111/62 99 07/23/17 18:30 07/23/17 18:30 07/23/17 18:30 18 18:27 07/23/17 18:30 Intake and Output: 07/23/17 07/24/17 18:59 06:59 Intake Total 232.8 Output Total 400 Balance -167.2 - Medications Medications: Current Medications Acetylcysteine (Acetylcysteine 20%) 6 ml PO Q12 [facility] Stop: 07/24/17 10:01 Last Admin: 07/23/17 11:09 Dose: Not Given Aspirin (Ecotrin) 81 mg PO DAILY [facility] Last Admin: 07/23/17 11:10 Dose: Not Given Carvedilol (Coreg) 12.5 mg PO BID [facility] Last Admin: 07/23/17 17:19 Dose: 12.5 mg Enoxaparin Sodium (Lovenox) 30 mg SC DAILY [facility] Last Admin: 07/22/17 09:30 Dose: 30 mg Famotidine (Pepcid) 20 mg PO BID [facility] Last Admin: 07/23/17 17:19 Dose: 20 mg Fluticasone Propionate (Flonase) 0 spr TRISTEN DAILY [facility] Last Admin: 07/23/17 11:10 Dose: Not Given Heparin Sodium (Porcine) (Heparin) 5,000 units SC Q8H [facility] Last Admin: 07/23/17 17:19 Dose: 5,000 units Hydralazine HCl (Apresoline) 50 mg PO TID [facility] Last Admin: 07/23/17 17:19 Dose: 50 mg Milrinone Lactate/Dextrose 20 (mg/ Dextrose) 100 mls @ 9.9 mls/hr IV .Q10H7M [place]; 0.25 MCG/KG/MIN PRN Reason: Protocol Last Admin: 07/23/17 17:02 Dose: Not Given Furosemide 100 mg/ Sodium (Chloride) 100 mls @ 5 mls/hr IVP .Q20H [facility]; 5 MG/HR PRN Reason: Protocol Last Admin: 07/23/17 16:00 Dose: 5 mls/hr Nitroglycerin/Dextrose (Nitroglycerin 50 Mg/250 Ml D5w) 50 mg in 250 mls @ 1.5 mls/hr IV .Q24H [facility]; 5 MCG/MIN PRN Reason: Protocol Last Admin: 07/23/17 16:00 Dose: 5 mcg/min, 1.5 mls/hr Nicotine (Nicoderm Cq) 1 patch TD DAILY [facility] Last Admin: 07/23/17 11:11 Dose: Not Given Nitroglycerin (Nitrostat Sl Tab) 0.4 mg SL Q5M PRN PRN Reason: Pain, severe (8-10) Promethazine HCl/Dextromethorphan (Phenergan Dm Syrup) 5 ml PO Q6H PRN PRN Reason: Cough Last Admin: 07/22/17 18:03 Dose: 5 ml Rosuvastatin Calcium (Crestor) 10 mg PO HS [facility] Last Admin: 07/22/17 21:42 Dose: 10 mg Tiotropium [place] (Spiriva) 18 mcg INH RQ24 [facility] Last Admin: 07/23/17 07:00 Dose: 18 mcg - Labs Labs: 07/23/17 06:20 07/23/17 06:20 PT 13.3 SECONDS (9.7-12.2) H 07/23/17 08:53 INR 1.2 07/23/17 08:53 APTT 33 SECONDS (21-34) D 07/23/17 17:14 Assessment and Plan (1) TOM (acute kidney injury) Status: Acute (2) Acute systolic (congestive) heart failure Status: Acute (3) Hypertensive emergency Status: Acute (4) CKD (chronic kidney disease) stage 3, GFR 30-59 ml/min Status: Acute
--- NOTE | 2017-07-23 22:01 | CARDCATH ---
PROCEDURE DATE: 07/23/2017 INDICATIONS: Mr. Eaton is a 42-year-old male, presented with new-onset CHF exacerbation with systolic heart failure, and therefore was brought to the [facility]reed[facility] for further evaluation and treatment for underlying etiology of his CHF. PROCEDURE PERFORMED: Complete heart catheterization with selective left and right coronary angiogram, right heart catheterization with hemodynamics and saturations, left ventriculogram with power injector, 6-Guamanian right femoral arterial access, Angio-Seal closure device for hemostasis, 7-Guamanian right femoral venous access, manual pressure for hemostasis. TECHNIQUES OF PROCEDURE: After obtaining informed consent, the patient was brought to the cardiac catheterization suite in post-absorptive, non-sedated state. The patient was prepped and draped in the usual sterile fashion. A 2% lidocaine was used for infiltration of anesthesia. Using modified Seldinger technique, a 6-Guamanian sheath was introduced into the right femoral artery and a 7-Guamanian sheath was introduced into the right femoral vein. Subsequently, over a J-wire, JL4 and JR4 diagnostic catheters were used to engage the left and right coronary systems, and angiograms were obtained in different orthogonal views. Subsequently, the pigtail catheter was advanced into the LV and LV gram was obtained in the FLOWERS view. Subsequently, under fluoroscopic guidance with a balloon inflated, the pulmonary capillary catheter was advanced serially through the IVC into the RA, RV, PA and wedge positions. Hemodynamics and saturations were obtained. CORONARY ANATOMY: The left main is a large-sized vessel, bifurcates into LAD and left circumflex coronary artery. Left circumflex is a large-sized vessel, gives off large-sized obtuse marginal branch, which has ostial 55% stenosis. Left anterior descending large-sized vessel has proximal mid 30% to 40% stenosis, gives off three small diagonal branches and two small septal perforators. RCA, small, left dominant circulation. Left ventricular ejection fraction 15% to 20% with global hypokinesis. RIGHT HEART CATH HEMODYNAMICS: PA pressures are 80/40 with mean pulmonary artery pressures of 55, RV pressure of 70/22 with RV EDP of 24, mean RA pressures were 25. Cardiac output was 2.7 liters per minute per square meter area, cardiac index 1.5 liters per minute per square meter area. IMPRESSION: Nonischemic dilated cardiomyopathy, elevated filling pressures, [id number] pulmonary hypertension. RECOMMENDATIONS: Initiate the patient was on IV Lasix therapy with Lasix at 10 mg per hour. Initiate the patient on milrinone 0.25, continue RAAS modulation with beta-blockers and HERMINIA inhibitors plus/minus aldosterone receptor blockers once renal function is stable and TOM resolved. The patient will be monitored closely for heart failure. René Dewitt MD MTDD
[2017-07-24 01:36] LABS: ALDO/PRA RATIO 15.6 Ratio (0.9-28.9)
[2017-07-24 06:38] LABS: BASO # 0.1 K/uL (0.0-0.2); BASO % 1.3 % (0.0-2.0); EOS # 0.1 K/uL (0.0-0.7); EOS % 2.2 % (0.0-4.0); HEMOGLOBIN 14.9 g/dL (12.0-18.0); LYMPH # 0.7 K/uL (1.0-4.3); LYMPH % 13.4 % (20.0-40.0); MEAN CELL VOLUME 79.2 fL (80.0-94.0); MEAN CORPUSCULAR HEMOGLOBIN 26.2 pg (27.0-31.0); MEAN CORPUSCULAR HGB CONC 33.1 g/dL (33.0-37.0); MEAN PLATELET VOLUME 8.2 fL (7.2-11.7); MONO # 0.9 K/uL (0.0-0.8); MONO % 16.1 % (0.0-10.0); NEUT # 3.6 K/uL (1.8-7.0); NRBC % 0.2 % (0.0-2.0); RBC 5.69 Mil/uL (4.40-5.90); RED CELL DISTRIBUTION WIDTH 14.7 % (11.5-14.5); WHITE BLOOD COUNT 5.4 K/uL (4.8-10.8)
[2017-07-24 07:01] LABS: B-TYPE NATRIURETIC PEPTIDE 2630 pg/mL (0-450)
[2017-07-24] MEDS: Furosemide 100 MG in Sodium Chloride 0.9% 90 ML IVP SCH (07:01)
[2017-07-24] MEDS: Milrinone 20 MG in Dextrose 5% In Water 80 ML IV SCH ×2 (07:06→17:31)
[2017-07-24 07:07] LABS: ALB/GLOB RATIO 1.1 (1.0-2.1); ALBUMIN 3.3 g/dL (3.5-5.0); ALT/SGPT 39 U/L (21-72); AST/SGOT 47 U/L (17-59); BLOOD UREA NITROGEN 22 mg/dL (9-20); GFR AFRICAN-AMERICAN > 60; GFR NON-AFRICAN AMERICAN 52; MAGNESIUM 1.9 mg/dL (1.6-2.3)
[2017-07-24] MEDS ORDERED: Magnesium Sulfate 1 gm in D5W 1 GM/100 ML BAG IVPB ONE (07:22)
--- NOTE | 2017-07-24 09:00 | RAD ---
Chest x-ray single frontal view History: TLC insertion. Comparison: 07/22/2017 Findings: Right central venous catheter tip extending to the cavoatrial junction. No evidence of postprocedure pneumothorax. Moderate venous congestion. Left basilar airspace opacity with question small left pleural effusion. Cardiomegaly. Degenerative changes in the spine and shoulders. Impression: Right central venous catheter tip extending to the cavoatrial junction. No evidence of postprocedure pneumothorax. Moderate venous congestion. Left basilar airspace opacity with question small left pleural effusion. Cardiomegaly.
--- NOTE | 2017-07-24 09:01 | CP.PCM.PN ---
Subjective - Date & Time of Evaluation Date of Evaluation: 07/24/17 Time of Evaluation: 08:57 - Subjective Subjective: Cardiology Progress Note for Dr. Dewitt Pt seen and examined at bedside. No acute overnight events. Pt currently on Milrinone, Lasix and Nitro gtt. Pt denied CP, SOB, n/v/d, abdominal pain, fever , chills, DOMINGUEZ, or dizziness. Objective - Vital Signs/Intake and Output Vital Signs (last 24 hours): Temp Pulse Resp BP Pulse Ox 98.6 F 89 20 157/97 H 96 07/24/17 04:00 07/24/17 08:17 07/24/17 08:17 07/24/17 08:17 07/24/17 08:17 Intake and Output: 07/24/17 07/24/17 06:59 18:59 Intake Total 628.8 14.9 Output Total 2300 100 Balance -1671.2 -85.1 - Medications Medications: Current Medications Acetylcysteine (Acetylcysteine 20%) 6 ml PO Q12 [facility] Stop: 07/24/17 10:01 Last Admin: 07/23/17 22:02 Dose: 6 ml Aspirin (Ecotrin) 81 mg PO DAILY [facility] Last Admin: 07/23/17 11:10 Dose: Not Given Carvedilol (Coreg) 12.5 mg PO BID [facility] Last Admin: 07/23/17 17:19 Dose: 12.5 mg Enoxaparin Sodium (Lovenox) 30 mg SC DAILY [facility] Last Admin: 07/22/17 09:30 Dose: 30 mg Famotidine (Pepcid) 20 mg PO BID [facility] Last Admin: 07/23/17 17:19 Dose: 20 mg Fluticasone Propionate (Flonase) 0 spr TRISTEN DAILY [facility] Last Admin: 07/23/17 11:10 Dose: Not Given Heparin Sodium (Porcine) (Heparin) 5,000 units SC Q8H [facility] Last Admin: 07/24/17 01:37 Dose: 5,000 units Hydralazine HCl (Apresoline) 50 mg PO TID [facility] Last Admin: 07/23/17 17:19 Dose: 50 mg Milrinone Lactate/Dextrose 20 (mg/ Dextrose) 100 mls @ 9.9 mls/hr IV .Q10H7M [facility]; 0.25 MCG/KG/MIN PRN Reason: Protocol Last Admin: 07/24/17 07:06 Dose: 0.25 mcg/kg/min, 9.9 mls/hr Furosemide 100 mg/ Sodium (Chloride) 100 mls @ 5 mls/hr IVP .Q20H [facility]; 5 MG/HR PRN Reason: Protocol Last Admin: 07/24/17 07:01 Dose: 5 mls/hr Nitroglycerin/Dextrose (Nitroglycerin 50 Mg/250 Ml D5w) 50 mg in 250 mls @ 1.5 mls/hr IV .Q24H [facility]; 5 MCG/MIN PRN Reason: Protocol Last Admin: 07/23/17 16:00 Dose: 5 mcg/min, 1.5 mls/hr Nicotine (Nicoderm Cq) 1 patch TD DAILY [facility] Last Admin: 07/23/17 11:11 Dose: Not Given Nitroglycerin (Nitrostat Sl Tab) 0.4 mg SL Q5M PRN PRN Reason: Pain, severe (8-10) Promethazine HCl/Dextromethorphan (Phenergan Dm Syrup) 5 ml PO Q6H PRN PRN Reason: Cough Last Admin: 07/22/17 18:03 Dose: 5 ml Rosuvastatin Calcium (Crestor) 10 mg PO HS [facility] Last Admin: 07/23/17 22:02 Dose: 10 mg Tiotropium [place] (Spiriva) 18 mcg INH RQ24 [facility] Last Admin: 07/23/17 07:00 Dose: 18 mcg - Labs Labs: 07/24/17 06:30 07/24/17 06:30 PT 13.3 SECONDS (9.7-12.2) H 07/23/17 08:53 INR 1.2 07/23/17 08:53 APTT 33 SECONDS (21-34) D 07/23/17 17:14 - Constitutional Appears: No Acute Distress - Head Exam Head Exam: NORMAL INSPECTION - Eye Exam Eye Exam: Normal appearance - ENT Exam ENT Exam: Normal Exam - Neck Exam Neck Exam: Normal Inspection - Respiratory Exam Respiratory Exam: Clear to Ausculation Bilateral. absent: Accessory Muscle Use , Rales, Rhonchi, Wheezes, Respiratory Distress - Cardiovascular Exam Cardiovascular Exam: RRR, +S1, +S2. absent: Gallop, Rubs, Murmur Additional comments: +S3 - GI/Abdominal Exam GI & Abdominal Exam: Soft. absent: Distended, Guarding, Tenderness - Extremities Exam Extremities Exam: Pedal Edema (1+ b/l LE) - Neurological Exam Neurological Exam: Alert, Awake, Oriented x3 - Skin Skin Exam: Dry, Intact, Normal Color, Warm Assessment and Plan - Assessment and Plan (Free Text) Assessment: 42 yo M with PMH of LAZARO, HTN, and chronic CHF with reduced EF presents to with SOB and LE edema, will be evaluated and treated for acute CHF exacerbation. Plan: 1. CHFrEF 2/2 Nonischemic Dilated Cardiomyopathy - BNP 94179, 2630 - EKG showed t-wave and st abnormalities in septal and lateral leads, LVH - Echo on 02/01/17 showed EF of 25-30% Repeat showed EF 30%, E/A 1.2, RVSP 30 mmHg, dilated LV and LA, LVH - Lipid panel WNL - Strict I&O's, daily weights, head of bead to 30 degrees - Cont Coreg, ASA - Stop Crestor - Cardiac catherization showed nonischemic dilated cardiomyopathy, EF ~20%, elevated filling pressure Cont lasix, milrinone, nitroglycerin gtt 2. Hypertensive Urgency, resolved - Cont hydralazine, coreg, lasix - Cont to monitor 3. TOM on CKD - Management per Nephro 4. Hypokalemia, resolved - Cont to monitor and replete as needed GI/DVT PPx - Per primary Pt seen and discussed in detail with Dr. Esdras Soriano, PGY1
--- NOTE | 2017-07-24 09:38 | CP.PCM.PN ---
Subjective - Date & Time of Evaluation Date of Evaluation: 07/23/17 Time of Evaluation: 12:00 - Subjective Subjective: Patient seen in recovery room s/p cath today; sleepy; Objective - Vital Signs/Intake and Output Vital Signs (last 24 hours): Temp Pulse Resp BP Pulse Ox 98.6 F 89 20 157/97 H 96 07/24/17 04:00 07/24/17 08:17 07/24/17 08:17 07/24/17 08:17 07/24/17 08:17 Intake and Output: 07/24/17 07/24/17 06:59 18:59 Intake Total 628.8 14.9 Output Total 2300 100 Balance -1671.2 -85.1 - Medications Medications: Current Medications Acetylcysteine (Acetylcysteine 20%) 6 ml PO Q12 [facility] Stop: 07/24/17 10:01 Last Admin: 07/23/17 22:02 Dose: 6 ml Aspirin (Ecotrin) 81 mg PO DAILY [facility] Last Admin: 07/23/17 11:10 Dose: Not Given Carvedilol (Coreg) 12.5 mg PO BID [facility] Last Admin: 07/23/17 17:19 Dose: 12.5 mg Enoxaparin Sodium (Lovenox) 30 mg SC DAILY [facility] Last Admin: 07/22/17 09:30 Dose: 30 mg Famotidine (Pepcid) 20 mg PO BID [facility] Last Admin: 07/23/17 17:19 Dose: 20 mg Fluticasone Propionate (Flonase) 0 spr TRISTEN DAILY [facility] Last Admin: 07/23/17 11:10 Dose: Not Given Heparin Sodium (Porcine) (Heparin) 5,000 units SC Q8H [facility] Last Admin: 07/24/17 01:37 Dose: 5,000 units Hydralazine HCl (Apresoline) 50 mg PO TID [facility] Last Admin: 07/23/17 17:19 Dose: 50 mg Milrinone Lactate/Dextrose 20 (mg/ Dextrose) 100 mls @ 9.9 mls/hr IV .Q10H7M [facility]; 0.25 MCG/KG/MIN PRN Reason: Protocol Last Admin: 07/24/17 07:06 Dose: 0.25 mcg/kg/min, 9.9 mls/hr Furosemide 100 mg/ Sodium (Chloride) 100 mls @ 5 mls/hr IVP .Q20H [facility]; 5 MG/HR PRN Reason: Protocol Last Admin: 07/24/17 07:01 Dose: 5 mls/hr Nitroglycerin/Dextrose (Nitroglycerin 50 Mg/250 Ml D5w) 50 mg in 250 mls @ 1.5 mls/hr IV .Q24H [facility]; 5 MCG/MIN PRN Reason: Protocol Last Admin: 07/23/17 16:00 Dose: 5 mcg/min, 1.5 mls/hr Nicotine (Nicoderm Cq) 1 patch TD DAILY [facility] Last Admin: 07/23/17 11:11 Dose: Not Given Nitroglycerin (Nitrostat Sl Tab) 0.4 mg SL Q5M PRN PRN Reason: Pain, severe (8-10) Promethazine HCl/Dextromethorphan (Phenergan Dm Syrup) 5 ml PO Q6H PRN PRN Reason: Cough Last Admin: 07/22/17 18:03 Dose: 5 ml Rosuvastatin Calcium (Crestor) 10 mg PO HS [facility] Last Admin: 07/23/17 22:02 Dose: 10 mg Tiotropium [place] (Spiriva) 18 mcg INH RQ24 [facility] Last Admin: 07/23/17 07:00 Dose: 18 mcg - Labs Labs: 07/24/17 06:30 07/24/17 06:30 PT 13.3 SECONDS (9.7-12.2) H 07/23/17 08:53 INR 1.2 07/23/17 08:53 APTT 33 SECONDS (21-34) D 07/23/17 17:14 - Constitutional Appears: Non-toxic, No Acute Distress - Eye Exam Eye Exam: absent: Scleral icterus - ENT Exam ENT Exam: Mucous Membranes Moist - Respiratory Exam Respiratory Exam: Clear to Ausculation Bilateral. absent: Respiratory Distress - Cardiovascular Exam Cardiovascular Exam: RRR, +S1, +S2 - GI/Abdominal Exam GI & Abdominal Exam: Soft. absent: Distended, Tenderness - Extremities Exam Additional comments: markedly edematous legs; - Neurological Exam Additional comments: drowsy; - Psychiatric Exam Psychiatric exam: absent: Agitated - Skin Skin Exam: Warm. absent: Cyanosis Assessment and Plan (1) TOM (acute kidney injury) Assessment & Plan: Cardiorenal etiology in the setting of acute severely decompensated systolic CHF ; patient placed on inotropic support after cath with IV lasix changed to gtt; monitor renal function; avoid rapid over-diuresis; Status: Acute (2) Acute systolic (congestive) heart failure Status: Acute (3) Hypertensive emergency Assessment & Plan: BP uncontrolled today after having been better controlled yesterday; placed on nitro drip; avoid abrupt drops in BP; Status: Acute (4) CKD (chronic kidney disease) stage 3, GFR 30-59 ml/min Assessment & Plan: Has some protienuria, will place on LUIS blockade after renal function stabilized ; Status: Acute
[2017-07-24] MEDS: Acetylcysteine 20% Inhal Soln (4ml) PO SCH (10:17)
[2017-07-24] MEDS: Fluticasone Nasal 50 mcg/Spray NAS SCH (11:14)
[2017-07-24] MEDS: Enoxaparin 40 mg Syringe SC SCH (11:17)
--- NOTE | 2017-07-24 16:08 | CP.PCM.PN ---
Subjective - Date & Time of Evaluation Date of Evaluation: 07/24/17 Time of Evaluation: 15:45 - Subjective Subjective: Hospitalist Progress Note Patient was seen and examined at 3:45 PM 07/24/17 in ICU Bed #6 Upon ROS: NO chest pain NO palpitations NO SOB/Cough/Wheezing NO dysphagia/odynophagia NO abdominal pain NO n/v/d/c: has not moved bowels since yesterday NO pain with urination as he has carranza in place NO headache NO new changes in vision NO new changes in hearing NO paresthesias Also on Exam: HEENT: NCA, EOMI, PERRLA, NO pharyngeal erythema/exudate, NO lymphadenopathy, NO thyromegaly Nasal Turbinates are less erythematous and edematous Cardio: NS1 and NS2, NO M/R/G Respiratory: Bilateral lower lobes expiratory wheezing and course breath sounds Left > Right GI: Central Obesity, Liver and spleen could not be palpated, NT, NO guarding/ rebound tenderness Ext: 1+ pitting edema from feet to the knees bilaterally Neuro: CN II through XII are grossly intact Assessments: 1). 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 Dewitt The patient need AICD at some point. Chest X Ray 07/23/17: left basilar airspace opacity with with questionable left pleural effusion 2). Dyspnea Inproved V/Q Scan low probability Venous Duplex Bilateral LE negative Likely secondary to HF, Body Habitus, Nicotine Addiction 3). HTN Coreg 12.5 mg PO 2x/day Hydralazine increased to 50 mg PO TID 4). Renal Insufficiency/CKD Stage 3 Renal U/S is limited due to body habitus but there were no masses/ hydronephrosis appreciated Secondary to Acute Systolic HF Nephrology Dr. Chang 5). Morbid Obesity 6). Nicotine Addiction Nicotine Patch 21 mg TD 1x/day Spiriva 2 PO INH 1 capsule via handihaler device 1x/day 7). Moderate Pulmonary HTN Pulmonology Dr. Jacobo: patient will need sleep study through the [facility] and then possible CPAP at night 8). Hypokalemia Normalized 9). Prophylaxis Pepcid 20 mg PO 2x/day Heparin 5,000 Units SC Q8H Fluticasone 2 sprays each nostril 1x/day Promethazine DM 5 ml Q6H PRN Cough Cuco Brantley D.O. Objective - Vital Signs/Intake and Output Vital Signs (last 24 hours): Temp Pulse Resp BP Pulse Ox 99.3 F 83 16 86/49 L 99 07/24/17 12:00 07/24/17 13:04 07/24/17 13:04 07/24/17 13:05 07/24/17 13:04 Intake and Output: 07/24/17 07/24/17 06:59 18:59 Intake Total 628.8 489.4 Output Total 2300 510 Balance -1671.2 -20.6 - Medications Medications: Current Medications Aspirin (Ecotrin) 81 mg PO DAILY [facility] Last Admin: 07/24/17 10:17 Dose: 81 mg Carvedilol (Coreg) 12.5 mg PO BID [facility] Last Admin: 07/24/17 10:17 Dose: 12.5 mg Famotidine (Pepcid) 20 mg PO BID [facility] Last Admin: 07/24/17 10:17 Dose: 20 mg Fluticasone Propionate (Flonase) 0 spr TRISTEN DAILY [facility] Last Admin: 07/24/17 11:14 Dose: 2 spr Heparin Sodium (Porcine) (Heparin) 5,000 units SC Q8H [facility] Last Admin: 07/24/17 10:18 Dose: 5,000 units Hydralazine HCl (Apresoline) 50 mg PO TID [facility] Last Admin: 07/24/17 10:17 Dose: 50 mg Milrinone Lactate/Dextrose 20 (mg/ Dextrose) 100 mls @ 9.9 mls/hr IV .Q10H7M [facility]; 0.25 MCG/KG/MIN PRN Reason: Protocol Last Admin: 07/24/17 07:06 Dose: 0.25 mcg/kg/min, 9.9 mls/hr Furosemide 100 mg/ Sodium (Chloride) 100 mls @ 5 mls/hr IVP .Q20H [facility]; 5 MG/HR PRN Reason: Protocol Last Admin: 07/24/17 07:01 Dose: 5 mls/hr Nitroglycerin/Dextrose (Nitroglycerin 50 Mg/250 Ml D5w) 50 mg in 250 mls @ 1.5 mls/hr IV .Q24H [facility]; 5 MCG/MIN PRN Reason: Protocol Last Admin: 07/23/17 16:00 Dose: 5 mcg/min, 1.5 mls/hr Nicotine (Nicoderm Cq) 1 patch TD DAILY [facility] Last Admin: 07/24/17 10:17 Dose: Not Given Nitroglycerin (Nitrostat Sl Tab) 0.4 mg SL Q5M PRN PRN Reason: Pain, severe (8-10) Promethazine HCl/Dextromethorphan (Phenergan Dm Syrup) 5 ml PO Q6H PRN PRN Reason: Cough Last Admin: 07/22/17 18:03 Dose: 5 ml Tiotropium [place] (Spiriva) 18 mcg INH RQ24 [facility] Last Admin: 07/23/17 07:00 Dose: 18 mcg - Labs Labs: 07/24/17 06:30 07/24/17 06:30 PT 13.3 SECONDS (9.7-12.2) H 07/23/17 08:53 INR 1.2 07/23/17 08:53 APTT 33 SECONDS (21-34) D 07/23/17 17:14
--- NOTE | 2017-07-24 17:43 | CP.CCUPN ---
<Moy Brand - Last Filed: 07/24/17 17:43> CCU Subjective - Physician Review Subjective (Free Text): 07/24/17 17:43 Pt is a 42M who presented to the ER on 07/19/17 for SOB, dry cough, and BL LE edema. He was taken for R and L sided heart cath yesterday (07/23/17) with Dr. Dewitt. 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 He was started on milrinone drip and transferred to ICU post cath for closer monitoring. Today pt was OOB to chair. No acute events over night. PMhx: LAZARO, HTN, CHF Shx: Appendectomy Allergies: NKDA Fhx: noncontributory Social: 10 pack years, denied drug use, social ETOH Cardio: HTN, CHF (Esdras) ASA 81mg Coreg 12.5 BID Furosemide drip Hydralizine 50mg PO TID milrinone drip Nitroglycerin 0.4 mg SL Q5min PRN Nitroglycerin drip Pulm: LAZARO, Pulm HTN (Donnell) Spiriva 18ug INH CPAP PPX: Pepcid 20mg PO BID Heparin 5,000 units Full code Next of kin: Jonny Brantley CCU Objective - Vital Signs / Intake & Output Vital Signs (Last 4 hours): Vital Signs Pulse Resp BP Pulse Ox 07/24/17 17:31 107 H 22 142/90 96 07/24/17 17:27 142/90 Intake and Output (Last 8hrs): Intake & Output 07/24/17 07/24/17 07/24/17 06:59 14:59 22:59 Intake Total 219.2 489.4 100 Output Total 1450 510 Balance -1230.8 -20.6 100 Weight 281 lb 8 oz Intake: IV 100 100 Intake, IV Amount 119.2 189.4 Right Distal Port 100 Internal Jugular Right Medial Port 79.2 59.4 Internal Jugular Right Proximal Port 40 30 Internal Jugular Right Wrist 0 Oral 300 Output: Urine 1450 510 Urethral (Fernandez) 1450 510 Other: # Bowel Movements 0 - Medications Active Medications: Active Medications Generic Name Dose Route Start Last Admin Trade Name Freq PRN Reason Stop Dose Admin Aspirin 81 mg 07/20/17 10:00 07/24/17 10:17 Ecotrin PO 81 mg DAILY TOMEKA Administration Carvedilol 12.5 mg 07/20/17 18:00 07/24/17 17:27 Coreg PO 12.5 mg BID TOMEKA Administration Famotidine 20 mg 07/23/17 18:00 07/24/17 17:30 Pepcid PO 20 mg BID TOMEKA Administration Fluticasone Propionate 0 spr 07/21/17 16:00 07/24/17 11:14 Flonase TRISTEN 2 spr DAILY TOMEKA Administration Heparin Sodium (Porcine) 5,000 units 07/23/17 17:00 07/24/17 17:27 Heparin SC 5,000 units Q8H TOMEKA Administration Hydralazine HCl 50 mg 07/22/17 09:03 07/24/17 17:28 Apresoline PO 50 mg TID TOMEKA Administration Milrinone Lactate/Dextrose 20 100 mls @ 9.9 mls/hr 07/23/17 10:45 07/24/17 17 :31 mg/ Dextrose IV 0.25 mcg/kg/min .Q10H7M TOMEKA 9.9 mls/hr Protocol Administration 0.25 MCG/KG/MIN Furosemide 100 mg/ Sodium 100 mls @ 5 mls/hr 07/23/17 10:49 07/24/17 07:01 Chloride IVP 5 mls/hr .Q20H TOMEKA Administration Protocol 5 MG/HR Nicotine 1 patch 07/20/17 10:00 07/24/17 10:17 Nicoderm Cq TD Not Given DAILY [facility] Nitroglycerin 0.4 mg 07/19/17 13:18 Nitrostat Sl Tab SL Q5M PRN Pain, severe (8-10) Promethazine HCl/Dextromethorphan 5 ml 07/22/17 09:09 07/22/17 18:03 Phenergan Dm Syrup PO 5 ml Q6H PRN Administration Cough Rosuvastatin Calcium 10 mg 07/24/17 22:00 Crestor PO HS TOMEKA Tiotropium [place] 18 mcg 07/22/17 09:30 07/23/17 07:00 Spiriva INH 18 mcg RQ24 TOMEKA Administration - Patient Studies Lab Studies: Lab Studies 07/24/17 07/24/17 07/24/17 Range/Units 16:20 11:45 07:43 WBC (4.8-10.8) K/uL RBC (4.40-5.90) Mil/uL Hgb (12.0-18.0) g/dL Hct (35.0-51.0) % MCV (80.0-94.0) fL MCH (27.0-31.0) pg MCHC (33.0-37.0) g/dL RDW (11.5-14.5) % Plt Count (130-400) K/uL MPV (7.2-11.7) fL Neut % (Auto) (50.0-75.0) % Lymph % (Auto) (20.0-40.0) % Franklin % (Auto) (0.0-10.0) % Eos % (Auto) (0.0-4.0) % Baso % (Auto) (0.0-2.0) % Neut # (Auto) (1.8-7.0) K/uL Lymph # (Auto) (1.0-4.3) K/uL Franklin # (Auto) (0.0-0.8) K/uL Eos # (Auto) (0.0-0.7) K/uL Baso # (Auto) (0.0-0.2) K/uL Sodium (132-148) mmol/L Potassium (3.6-5.2) mmol/L Chloride (98-107) mmol/L Carbon Dioxide (22-30) mmol/L Anion Gap (10-20) BUN (9-20) mg/dL Creatinine (0.8-1.5) mg/dL Est GFR ( Amer) Est GFR (Non-Af Amer) POC Glucose (mg/dL) 82 156 H 85 (65-110) mg/dL Random Glucose (75-110) mg/dL Calcium (8.6-10.4) mg/dl Phosphorus (2.5-4.5) mg/dL Magnesium (1.6-2.3) mg/dL Total Bilirubin (0.2-1.3) mg/dL AST (17-59) U/L ALT (21-72) U/L Alkaline Phosphatase (38-126) U/L NT-Pro-B Natriuret Pep (0-450) pg/mL Total Protein (6.3-8.3) g/dL Albumin (3.5-5.0) g/dL Globulin (2.2-3.9) gm/dL Albumin/Globulin Ratio (1.0-2.1) Renin (0.25-5.82) ng/mL/h Aldosterone ng/dL Aldosterone/Renin Ratio (0.9-28.9) Ratio RPR (NONREACTIVE) 07/24/17 07/24/17 07/23/17 Range/Units 06:30 06:30 21:19 WBC 5.4 D (4.8-10.8) K/uL RBC 5.69 (4.40-5.90) Mil/uL Hgb 14.9 (12.0-18.0) g/dL Hct 45.1 (35.0-51.0) % MCV 79.2 L (80.0-94.0) fL MCH 26.2 L (27.0-31.0) pg MCHC 33.1 (33.0-37.0) g/dL RDW 14.7 H (11.5-14.5) % Plt Count 137 (130-400) K/uL MPV 8.2 (7.2-11.7) fL Neut % (Auto) 67.0 (50.0-75.0) % Lymph % (Auto) 13.4 L (20.0-40.0) % Franklin % (Auto) 16.1 H (0.0-10.0) % Eos % (Auto) 2.2 (0.0-4.0) % Baso % (Auto) 1.3 (0.0-2.0) % Neut # (Auto) 3.6 (1.8-7.0) K/uL Lymph # (Auto) 0.7 L (1.0-4.3) K/uL Franklin # (Auto) 0.9 H (0.0-0.8) K/uL Eos # (Auto) 0.1 (0.0-0.7) K/uL Baso # (Auto) 0.1 (0.0-0.2) K/uL Sodium 133 (132-148) mmol/L Potassium 4.2 (3.6-5.2) mmol/L Chloride 94 L (98-107) mmol/L Carbon Dioxide 28 (22-30) mmol/L Anion Gap 14 (10-20) BUN 22 H (9-20) mg/dL Creatinine 1.5 (0.8-1.5) mg/dL Est GFR ( Amer) > 60 Est GFR (Non-Af Amer) 52 POC Glucose (mg/dL) 137 H (65-110) mg/dL Random Glucose 86 (75-110) mg/dL Calcium 8.0 L (8.6-10.4) mg/dl Phosphorus 3.2 (2.5-4.5) mg/dL Magnesium 1.9 (1.6-2.3) mg/dL Total Bilirubin 1.1 (0.2-1.3) mg/dL AST 47 (17-59) U/L ALT 39 (21-72) U/L Alkaline Phosphatase 74 (38-126) U/L NT-Pro-B Natriuret Pep 2630 H (0-450) pg/mL Total Protein 6.3 (6.3-8.3) g/dL Albumin 3.3 L (3.5-5.0) g/dL Globulin 3.1 (2.2-3.9) gm/dL Albumin/Globulin Ratio 1.1 (1.0-2.1) Renin (0.25-5.82) ng/mL/h Aldosterone ng/dL Aldosterone/Renin Ratio (0.9-28.9) Ratio RPR (NONREACTIVE) 07/23/17 07/20/17 Range/Units 06:20 07:23 WBC (4.8-10.8) K/uL RBC (4.40-5.90) Mil/uL Hgb (12.0-18.0) g/dL Hct (35.0-51.0) % MCV (80.0-94.0) fL MCH (27.0-31.0) pg MCHC (33.0-37.0) g/dL RDW (11.5-14.5) % Plt Count (130-400) K/uL MPV (7.2-11.7) fL Neut % (Auto) (50.0-75.0) % Lymph % (Auto) (20.0-40.0) % Franklin % (Auto) (0.0-10.0) % Eos % (Auto) (0.0-4.0) % Baso % (Auto) (0.0-2.0) % Neut # (Auto) (1.8-7.0) K/uL Lymph # (Auto) (1.0-4.3) K/uL Franklin # (Auto) (0.0-0.8) K/uL Eos # (Auto) (0.0-0.7) K/uL Baso # (Auto) (0.0-0.2) K/uL Sodium (132-148) mmol/L Potassium (3.6-5.2) mmol/L Chloride (98-107) mmol/L Carbon Dioxide (22-30) mmol/L Anion Gap (10-20) BUN (9-20) mg/dL Creatinine (0.8-1.5) mg/dL Est GFR ( Amer) Est GFR (Non-Af Amer) POC Glucose (mg/dL) (65-110) mg/dL Random Glucose (75-110) mg/dL Calcium (8.6-10.4) mg/dl Phosphorus (2.5-4.5) mg/dL Magnesium (1.6-2.3) mg/dL Total Bilirubin (0.2-1.3) mg/dL AST (17-59) U/L ALT (21-72) U/L Alkaline Phosphatase (38-126) U/L NT-Pro-B Natriuret Pep (0-450) pg/mL Total Protein (6.3-8.3) g/dL Albumin (3.5-5.0) g/dL Globulin (2.2-3.9) gm/dL Albumin/Globulin Ratio (1.0-2.1) Renin 0.32 (0.25-5.82) ng/mL/h Aldosterone 5 ng/dL Aldosterone/Renin Ratio 15.6 (0.9-28.9) Ratio RPR Nonreactive (NONREACTIVE) Laboratory Results - last 24 hr 07/20/17 07/23/17 07/23/17 07:23 06:20 21:19 WBC RBC Hgb Hct MCV MCH MCHC RDW Plt Count MPV Neut % (Auto) Lymph % (Auto) Franklin % (Auto) Eos % (Auto) Baso % (Auto) Neut # (Auto) Lymph # (Auto) Franklin # (Auto) Eos # (Auto) Baso # (Auto) Sodium Potassium Chloride Carbon Dioxide Anion Gap BUN Creatinine Est GFR ( Amer) Est GFR (Non-Af Amer) POC Glucose (mg/dL) 137 H Random Glucose Calcium Phosphorus Magnesium Total Bilirubin AST ALT Alkaline Phosphatase NT-Pro-B Natriuret Pep Total Protein Albumin Globulin Albumin/Globulin Ratio Renin 0.32 Aldosterone 5 Aldosterone/Renin Ratio 15.6 RPR Nonreactive 07/24/17 07/24/17 07/24/17 06:30 06:30 07:43 WBC 5.4 D RBC 5.69 Hgb 14.9 Hct 45.1 MCV 79.2 L MCH 26.2 L MCHC 33.1 RDW 14.7 H Plt Count 137 MPV 8.2 Neut % (Auto) 67.0 Lymph % (Auto) 13.4 L Franklin % (Auto) 16.1 H Eos % (Auto) 2.2 Baso % (Auto) 1.3 Neut # (Auto) 3.6 Lymph # (Auto) 0.7 L Franklin # (Auto) 0.9 H Eos # (Auto) 0.1 Baso # (Auto) 0.1 Sodium 133 Potassium 4.2 Chloride 94 L Carbon Dioxide 28 Anion Gap 14 BUN 22 H Creatinine 1.5 Est GFR ( Amer) > 60 Est GFR (Non-Af Amer) 52 POC Glucose (mg/dL) 85 Random Glucose 86 Calcium 8.0 L Phosphorus 3.2 Magnesium 1.9 Total Bilirubin 1.1 AST 47 ALT 39 Alkaline Phosphatase 74 NT-Pro-B Natriuret Pep 2630 H Total Protein 6.3 Albumin 3.3 L Globulin 3.1 Albumin/Globulin Ratio 1.1 Renin Aldosterone Aldosterone/Renin Ratio RPR 07/24/17 07/24/17 11:45 16:20 WBC RBC Hgb Hct MCV MCH MCHC RDW Plt Count MPV Neut % (Auto) Lymph % (Auto) Franklin % (Auto) Eos % (Auto) Baso % (Auto) Neut # (Auto) Lymph # (Auto) Franklin # (Auto) Eos # (Auto) Baso # (Auto) Sodium Potassium Chloride Carbon Dioxide Anion Gap BUN Creatinine Est GFR ( Amer) Est GFR (Non-Af Amer) POC Glucose (mg/dL) 156 H 82 Random Glucose Calcium Phosphorus Magnesium Total Bilirubin AST ALT Alkaline Phosphatase NT-Pro-B Natriuret Pep Total Protein Albumin Globulin Albumin/Globulin Ratio Renin Aldosterone Aldosterone/Renin Ratio RPR Fingerstick Blood Sugar Results: 137 Critical Care Progress Note - Nutrition Nutrition: Nutrition Category Date Time Status Heart Healthy Diet [DIET] Diets 07/23/17 Breakfast Active <Remi Perdue - Last Filed: 07/24/17 20:32> CCU Objective - Vital Signs / Intake & Output Vital Signs (Last 4 hours): Vital Signs Temp Pulse Resp BP Pulse Ox 07/24/17 20:00 98.6 F 70 18 108/74 98 07/24/17 19:04 76 15 101/56 L 07/24/17 19:00 78 11 L 07/24/17 18:04 81 18 112/72 07/24/17 18:00 75 13 07/24/17 17:31 107 H 22 142/90 96 07/24/17 17:27 142/90 07/24/17 17:22 82 14 142/90 98 07/24/17 17:04 59 L 11 L 138/105 H 98 07/24/17 17:00 58 L 13 97 Intake and Output (Last 8hrs): Intake & Output 07/24/17 07/24/17 07/24/17 06:59 14:59 22:59 Intake Total 219.2 754.2 449.5 Output Total 1450 575 235 Balance -1230.8 179.2 214.5 Weight 281 lb 8 oz Intake: IV 100 100 Intake, IV Amount 119.2 214.2 49.5 Right Distal Port 100 Internal Jugular Right Medial Port 79.2 79.2 49.5 Internal Jugular Right Proximal Port 40 35 Internal Jugular Right Wrist 0 Oral 540 300 Output: Urine 1450 575 235 Urethral (Fernandez) 1450 575 235 Other: # Bowel Movements 0 - Medications Active Medications: Active Medications Generic Name Dose Route Start Last Admin Trade Name Freq PRN Reason Stop Dose Admin Aspirin 81 mg 07/20/17 10:00 07/24/17 10:17 Ecotrin PO 81 mg DAILY TOMEKA Administration Carvedilol 12.5 mg 07/20/17 18:00 07/24/17 17:27 Coreg PO 12.5 mg BID TOMEKA Administration Famotidine 20 mg 07/23/17 18:00 07/24/17 17:30 Pepcid PO 20 mg BID TOMEKA Administration Fluticasone Propionate 0 spr 07/21/17 16:00 07/24/17 11:14 Flonase TRISTEN 2 spr DAILY TOMEKA Administration Heparin Sodium (Porcine) 5,000 units 07/23/17 17:00 07/24/17 17:27 Heparin SC 5,000 units Q8H TOMEKA Administration Hydralazine HCl 50 mg 07/22/17 09:03 07/24/17 17:28 Apresoline PO 50 mg TID TOMEKA Administration Milrinone Lactate/Dextrose 20 100 mls @ 9.9 mls/hr 07/23/17 10:45 07/24/17 17 :31 mg/ Dextrose IV 0.25 mcg/kg/min .Q10H7M TOMEKA 9.9 mls/hr Protocol Administration 0.25 MCG/KG/MIN Furosemide 100 mg/ Sodium 100 mls @ 5 mls/hr 07/23/17 10:49 07/24/17 07:01 Chloride IVP 5 mls/hr .Q20H TOMEKA Administration Protocol 5 MG/HR Nicotine 1 patch 07/20/17 10:00 07/24/17 10:17 Nicoderm Cq TD Not Given DAILY TOMEKA Nitroglycerin 0.4 mg 07/19/17 13:18 Nitrostat Sl Tab SL Q5M PRN Pain, severe (8-10) Promethazine HCl/Dextromethorphan 5 ml 07/22/17 09:09 07/24/17 18:19 Phenergan Dm Syrup PO 5 ml Q6H PRN Administration Cough Rosuvastatin Calcium 10 mg 07/24/17 22:00 Crestor PO HS [facility] Tiotropium [place] 18 mcg 07/22/17 09:30 07/23/17 07:00 Spiriva INH 18 mcg RQ24 TOMEKA Administration - Patient Studies Lab Studies: Lab Studies 07/24/17 07/24/17 07/24/17 Range/Units 16:20 11:45 07:43 WBC (4.8-10.8) K/uL RBC (4.40-5.90) Mil/uL Hgb (12.0-18.0) g/dL Hct (35.0-51.0) % MCV (80.0-94.0) fL MCH (27.0-31.0) pg MCHC (33.0-37.0) g/dL RDW (11.5-14.5) % Plt Count (130-400) K/uL MPV (7.2-11.7) fL Neut % (Auto) (50.0-75.0) % Lymph % (Auto) (20.0-40.0) % Franklin % (Auto) (0.0-10.0) % Eos % (Auto) (0.0-4.0) % Baso % (Auto) (0.0-2.0) % Neut # (Auto) (1.8-7.0) K/uL Lymph # (Auto) (1.0-4.3) K/uL Franklin # (Auto) (0.0-0.8) K/uL Eos # (Auto) (0.0-0.7) K/uL Baso # (Auto) (0.0-0.2) K/uL Sodium (132-148) mmol/L Potassium (3.6-5.2) mmol/L Chloride (98-107) mmol/L Carbon Dioxide (22-30) mmol/L Anion Gap (10-20) BUN (9-20) mg/dL Creatinine (0.8-1.5) mg/dL Est GFR ( Amer) Est GFR (Non-Af Amer) POC Glucose (mg/dL) 82 156 H 85 (65-110) mg/dL Random Glucose (75-110) mg/dL Calcium (8.6-10.4) mg/dl Phosphorus (2.5-4.5) mg/dL Magnesium (1.6-2.3) mg/dL Total Bilirubin (0.2-1.3) mg/dL AST (17-59) U/L ALT (21-72) U/L Alkaline Phosphatase (38-126) U/L NT-Pro-B Natriuret Pep (0-450) pg/mL Total Protein (6.3-8.3) g/dL Albumin (3.5-5.0) g/dL Globulin (2.2-3.9) gm/dL Albumin/Globulin Ratio (1.0-2.1) Renin (0.25-5.82) ng/mL/h Aldosterone ng/dL Aldosterone/Renin Ratio (0.9-28.9) Ratio 02/01/3107/24/17 07/23/17 Range/Units 06:30 06:30 21:19 WBC 5.4 D (4.8-10.8) K/uL RBC 5.69 (4.40-5.90) Mil/uL Hgb 14.9 (12.0-18.0) g/dL Hct 45.1 (35.0-51.0) % MCV 79.2 L (80.0-94.0) fL MCH 26.2 L (27.0-31.0) pg MCHC 33.1 (33.0-37.0) g/dL RDW 14.7 H (11.5-14.5) % Plt Count 137 (130-400) K/uL MPV 8.2 (7.2-11.7) fL Neut % (Auto) 67.0 (50.0-75.0) % Lymph % (Auto) 13.4 L (20.0-40.0) % Franklin % (Auto) 16.1 H (0.0-10.0) % Eos % (Auto) 2.2 (0.0-4.0) % Baso % (Auto) 1.3 (0.0-2.0) % Neut # (Auto) 3.6 (1.8-7.0) K/uL Lymph # (Auto) 0.7 L (1.0-4.3) K/uL Franklin # (Auto) 0.9 H (0.0-0.8) K/uL Eos # (Auto) 0.1 (0.0-0.7) K/uL Baso # (Auto) 0.1 (0.0-0.2) K/uL Sodium 133 (132-148) mmol/L Potassium 4.2 (3.6-5.2) mmol/L Chloride 94 L (98-107) mmol/L Carbon Dioxide 28 (22-30) mmol/L Anion Gap 14 (10-20) BUN 22 H (9-20) mg/dL Creatinine 1.5 (0.8-1.5) mg/dL Est GFR ( Amer) > 60 Est GFR (Non-Af Amer) 52 POC Glucose (mg/dL) 137 H (65-110) mg/dL Random Glucose 86 (75-110) mg/dL Calcium 8.0 L (8.6-10.4) mg/dl Phosphorus 3.2 (2.5-4.5) mg/dL Magnesium 1.9 (1.6-2.3) mg/dL Total Bilirubin 1.1 (0.2-1.3) mg/dL AST 47 (17-59) U/L ALT 39 (21-72) U/L Alkaline Phosphatase 74 (38-126) U/L NT-Pro-B Natriuret Pep 2630 H (0-450) pg/mL Total Protein 6.3 (6.3-8.3) g/dL Albumin 3.3 L (3.5-5.0) g/dL Globulin 3.1 (2.2-3.9) gm/dL Albumin/Globulin Ratio 1.1 (1.0-2.1) Renin (0.25-5.82) ng/mL/h Aldosterone ng/dL Aldosterone/Renin Ratio (0.9-28.9) Ratio 07/20/17 Range/Units 07:23 WBC (4.8-10.8) K/uL RBC (4.40-5.90) Mil/uL Hgb (12.0-18.0) g/dL Hct (35.0-51.0) % MCV (80.0-94.0) fL MCH (27.0-31.0) pg MCHC (33.0-37.0) g/dL RDW (11.5-14.5) % Plt Count (130-400) K/uL MPV (7.2-11.7) fL Neut % (Auto) (50.0-75.0) % Lymph % (Auto) (20.0-40.0) % Franklin % (Auto) (0.0-10.0) % Eos % (Auto) (0.0-4.0) % Baso % (Auto) (0.0-2.0) % Neut # (Auto) (1.8-7.0) K/uL Lymph # (Auto) (1.0-4.3) K/uL Franklin # (Auto) (0.0-0.8) K/uL Eos # (Auto) (0.0-0.7) K/uL Baso # (Auto) (0.0-0.2) K/uL Sodium (132-148) mmol/L Potassium (3.6-5.2) mmol/L Chloride (98-107) mmol/L Carbon Dioxide (22-30) mmol/L Anion Gap (10-20) BUN (9-20) mg/dL Creatinine (0.8-1.5) mg/dL Est GFR ( Amer) Est GFR (Non-Af Amer) POC Glucose (mg/dL) (65-110) mg/dL Random Glucose (75-110) mg/dL Calcium (8.6-10.4) mg/dl Phosphorus (2.5-4.5) mg/dL Magnesium (1.6-2.3) mg/dL Total Bilirubin (0.2-1.3) mg/dL AST (17-59) U/L ALT (21-72) U/L Alkaline Phosphatase (38-126) U/L NT-Pro-B Natriuret Pep (0-450) pg/mL Total Protein (6.3-8.3) g/dL Albumin (3.5-5.0) g/dL Globulin (2.2-3.9) gm/dL Albumin/Globulin Ratio (1.0-2.1) Renin 0.32 (0.25-5.82) ng/mL/h Aldosterone 5 ng/dL Aldosterone/Renin Ratio 15.6 (0.9-28.9) Ratio Laboratory Results - last 24 hr 07/20/17 07/23/17 07/24/17 07:23 21:19 06:30 WBC 5.4 D RBC 5.69 Hgb 14.9 Hct 45.1 MCV 79.2 L MCH 26.2 L MCHC 33.1 RDW 14.7 H Plt Count 137 MPV 8.2 Neut % (Auto) 67.0 Lymph % (Auto) 13.4 L Franklin % (Auto) 16.1 H Eos % (Auto) 2.2 Baso % (Auto) 1.3 Neut # (Auto) 3.6 Lymph # (Auto) 0.7 L Franklin # (Auto) 0.9 H Eos # (Auto) 0.1 Baso # (Auto) 0.1 Sodium Potassium Chloride Carbon Dioxide Anion Gap BUN Creatinine Est GFR ( Amer) Est GFR (Non-Af Amer) POC Glucose (mg/dL) 137 H Random Glucose Calcium Phosphorus Magnesium Total Bilirubin AST ALT Alkaline Phosphatase NT-Pro-B Natriuret Pep Total Protein Albumin Globulin Albumin/Globulin Ratio Renin 0.32 Aldosterone 5 Aldosterone/Renin Ratio 15.6 07/24/17 07/24/17 07/24/17 06:30 07:43 11:45 WBC RBC Hgb Hct MCV MCH MCHC RDW Plt Count MPV Neut % (Auto) Lymph % (Auto) Franklin % (Auto) Eos % (Auto) Baso % (Auto) Neut # (Auto) Lymph # (Auto) Franklin # (Auto) Eos # (Auto) Baso # (Auto) Sodium 133 Potassium 4.2 Chloride 94 L Carbon Dioxide 28 Anion Gap 14 BUN 22 H Creatinine 1.5 Est GFR ( Amer) > 60 Est GFR (Non-Af Amer) 52 POC Glucose (mg/dL) 85 156 H Random Glucose 86 Calcium 8.0 L Phosphorus 3.2 Magnesium 1.9 Total Bilirubin 1.1 AST 47 ALT 39 Alkaline Phosphatase 74 NT-Pro-B Natriuret Pep 2630 H Total Protein 6.3 Albumin 3.3 L Globulin 3.1 Albumin/Globulin Ratio 1.1 Renin Aldosterone Aldosterone/Renin Ratio 07/24/17 16:20 WBC RBC Hgb Hct MCV MCH MCHC RDW Plt Count MPV Neut % (Auto) Lymph % (Auto) Franklin % (Auto) Eos % (Auto) Baso % (Auto) Neut # (Auto) Lymph # (Auto) Franklin # (Auto) Eos # (Auto) Baso # (Auto) Sodium Potassium Chloride Carbon Dioxide Anion Gap BUN Creatinine Est GFR ( Amer) Est GFR (Non-Af Amer) POC Glucose (mg/dL) 82 Random Glucose Calcium Phosphorus Magnesium Total Bilirubin AST ALT Alkaline Phosphatase NT-Pro-B Natriuret Pep Total Protein Albumin Globulin Albumin/Globulin Ratio Renin Aldosterone Aldosterone/Renin Ratio Critical Care Progress Note - Nutrition Nutrition: Nutrition Category Date Time Status Heart Healthy Diet [DIET] Diets 07/23/17 Breakfast Active Attending/Attestation - Attestation I have personally seen and examined this patient.: Yes I have fully participated in the care of the patient.: Yes I have reviewed all pertinent clinical information: Yes Notes (Text): 07/24/17 20:32 Today: July The Patient was seen and examined at the bedside, Medical records reviewed, and management issues were discussed and formulated with the house staff. I have reviewed all the relevant clinical, laboratory, hemodynamic, radiographic data and medications Events reviewed Pain issues, skin care, head of the bed elevation, glycemic control were addressed. Agree with above resident's assessment and treatment plans of care as transcribed in Dr. Brand note.
[2017-07-24] MEDS: Promethazine DM 6.25 mg-15 mg/5 ml Syrup PO PRN (18:19)
[2017-07-24] MEDS ORDERED: Potassium Chloride 20 mEq ER Tab PO ONE (19:00)
--- NOTE | 2017-07-24 22:08 | CP.PCM.PN ---
Subjective - Date & Time of Evaluation Date of Evaluation: 07/24/17 Time of Evaluation: 21:00 - Subjective Subjective: Patient reports breathing improved; tolerating diet; lasix drip held earlier today due to hypotension; Objective - Vital Signs/Intake and Output Vital Signs (last 24 hours): Temp Pulse Resp BP Pulse Ox 98.6 F 80 14 139/70 98 07/24/17 20:00 07/24/17 21:00 07/24/17 21:00 07/24/17 21:04 07/24/17 21:00 Intake and Output: 07/24/17 07/25/17 18:59 06:59 Intake Total 1193.8 29.7 Output Total 760 160 Balance 433.8 -130.3 - Medications Medications: Current Medications Aspirin (Ecotrin) 81 mg PO DAILY [facility] Last Admin: 07/24/17 10:17 Dose: 81 mg Carvedilol (Coreg) 12.5 mg PO BID [facility] Last Admin: 07/24/17 17:27 Dose: 12.5 mg Famotidine (Pepcid) 20 mg PO BID [facility] Last Admin: 07/24/17 17:30 Dose: 20 mg Fluticasone Propionate (Flonase) 0 spr TRISTEN DAILY [facility] Last Admin: 07/24/17 11:14 Dose: 2 spr Heparin Sodium (Porcine) (Heparin) 5,000 units SC Q8H [facility] Last Admin: 07/24/17 17:27 Dose: 5,000 units Hydralazine HCl (Apresoline) 50 mg PO TID [facility] Last Admin: 07/24/17 17:28 Dose: 50 mg Milrinone Lactate/Dextrose 20 (mg/ Dextrose) 100 mls @ 9.9 mls/hr IV .Q10H7M TOMEKA; 0.25 MCG/KG/MIN PRN Reason: Protocol Last Admin: 07/24/17 17:31 Dose: 0.25 mcg/kg/min, 9.9 mls/hr Furosemide 100 mg/ Sodium (Chloride) 100 mls @ 5 mls/hr IVP .Q20H TOMEKA; 5 MG/HR PRN Reason: Protocol Last Admin: 07/24/17 07:01 Dose: 5 mls/hr Nicotine (Nicoderm Cq) 1 patch TD DAILY [facility] Last Admin: 07/24/17 10:17 Dose: Not Given Nitroglycerin (Nitrostat Sl Tab) 0.4 mg SL Q5M PRN PRN Reason: Pain, severe (8-10) Promethazine HCl/Dextromethorphan (Phenergan Dm Syrup) 5 ml PO Q6H PRN PRN Reason: Cough Last Admin: 07/24/17 18:19 Dose: 5 ml Rosuvastatin Calcium (Crestor) 10 mg PO HS [facility] Last Admin: 07/24/17 21:41 Dose: 10 mg Tiotropium Dexter (Spiriva) 18 mcg INH RQ24 [facility] Last Admin: 07/23/17 07:00 Dose: 18 mcg - Labs Labs: 07/24/17 06:30 07/24/17 06:30 PT 13.3 SECONDS (9.7-12.2) H 07/23/17 08:53 INR 1.2 07/23/17 08:53 APTT 33 SECONDS (21-34) D 07/23/17 17:14 - Constitutional Appears: Non-toxic, No Acute Distress - Eye Exam Eye Exam: absent: Scleral icterus - ENT Exam ENT Exam: Mucous Membranes Moist - Respiratory Exam Respiratory Exam: Wheezes. absent: Respiratory Distress - Cardiovascular Exam Cardiovascular Exam: RRR, +S1, +S2 - GI/Abdominal Exam GI & Abdominal Exam: Soft. absent: Distended, Tenderness - Extremities Exam Additional comments: mild/mod lower leg edema; - Neurological Exam Neurological Exam: Alert, Awake - Psychiatric Exam Psychiatric exam: absent: Agitated - Skin Skin Exam: Warm. absent: Cyanosis Assessment and Plan (1) TOM (acute kidney injury) Assessment & Plan: Cardiorenal etiology, improved with diuresis and now inotropic support; hypotension earlier today so both nitro and lasix drips stopped; edema has improved remarkably so will monitor renal function closely and watch for over- diuresis; Status: Acute (2) Acute systolic (congestive) heart failure Assessment & Plan: Symptomatically much improved (able to lay flat) with aggressive diuresis; will need to find adequate PO diuretic regimen before d/c; restart spironolactone 25 mg bid; Status: Acute (3) Hypertensive emergency Assessment & Plan: Off nitro drip; continue coreg and hydralazine; if renal function stable tomorrow, start low dose ARB; Status: Acute (4) CKD (chronic kidney disease) stage 3, GFR 30-59 ml/min Assessment & Plan: 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
[2017-07-25] MEDS: Furosemide 100 MG in Sodium Chloride 0.9% 90 ML IVP SCH (02:50)
[2017-07-25 07:50] LABS: BASO % 0.8 % (0.0-2.0); EOS # 0.1 K/uL (0.0-0.7); EOS % 2.1 % (0.0-4.0); HEMOGLOBIN 13.9 g/dL (12.0-18.0); LYMPH # 0.8 K/uL (1.0-4.3); LYMPH % 15.1 % (20.0-40.0); MEAN CELL VOLUME 78.8 fL (80.0-94.0); MEAN CORPUSCULAR HEMOGLOBIN 26.1 pg (27.0-31.0); MEAN CORPUSCULAR HGB CONC 33.1 g/dL (33.0-37.0); MEAN PLATELET VOLUME 7.7 fL (7.2-11.7); MONO # 0.9 K/uL (0.0-0.8); MONO % 16.6 % (0.0-10.0); NEUT # 3.4 K/uL (1.8-7.0); NEUT % 65.4 % (50.0-75.0); RBC 5.34 Mil/uL (4.40-5.90); RED CELL DISTRIBUTION WIDTH 14.4 % (11.5-14.5); WHITE BLOOD COUNT 5.3 K/uL (4.8-10.8)
--- NOTE | 2017-07-25 07:53 | CP.PCM.PN ---
Subjective - Date & Time of Evaluation Date of Evaluation: 07/25/17 Time of Evaluation: 07:50 - Subjective Subjective: Cardiology Progress Note for Dr. Dewitt Pt seen and examined at bedside. No acute overnight events. Lasix and Nitro drip held yesterday due to hypotension. Pt states breathing is improved. Pt denied CP, n/v/d, abdominal pain, fever, chills, DOMINGUEZ, or dizziness. Objective - Vital Signs/Intake and Output Vital Signs (last 24 hours): Temp Pulse Resp BP Pulse Ox 98.5 F 82 13 134/68 96 07/25/17 04:00 07/25/17 05:05 07/25/17 05:05 07/25/17 05:05 07/25/17 05:05 Intake and Output: 07/25/17 07/25/17 06:59 18:59 Intake Total 328.9 Output Total 550 Balance -221.1 - Medications Medications: Current Medications Aspirin (Ecotrin) 81 mg PO DAILY [facility] Last Admin: 07/24/17 10:17 Dose: 81 mg Carvedilol (Coreg) 12.5 mg PO BID [facility] Last Admin: 07/24/17 17:27 Dose: 12.5 mg Famotidine (Pepcid) 20 mg PO BID [facility] Last Admin: 07/24/17 17:30 Dose: 20 mg Fluticasone Propionate (Flonase) 0 spr TRISTEN DAILY [facility] Last Admin: 07/24/17 11:14 Dose: 2 spr Heparin Sodium (Porcine) (Heparin) 5,000 units SC Q8H [facility] Last Admin: 07/25/17 02:34 Dose: 5,000 units Hydralazine HCl (Apresoline) 50 mg PO TID [facility] Last Admin: 07/24/17 17:28 Dose: 50 mg Milrinone Lactate/Dextrose 20 (mg/ Dextrose) 100 mls @ 9.9 mls/hr IV .Q10H7M [facility]; 0.25 MCG/KG/MIN PRN Reason: Protocol Last Admin: 07/24/17 17:31 Dose: 0.25 mcg/kg/min, 9.9 mls/hr Furosemide 100 mg/ Sodium (Chloride) 100 mls @ 5 mls/hr IVP .Q20H [facility]; 5 MG/HR PRN Reason: Protocol Last Admin: 07/25/17 02:50 Dose: Not Given Nicotine (Nicoderm Cq) 1 patch TD DAILY [facility] Last Admin: 07/24/17 10:17 Dose: Not Given Nitroglycerin (Nitrostat Sl Tab) 0.4 mg SL Q5M PRN PRN Reason: Pain, severe (8-10) Promethazine HCl/Dextromethorphan (Phenergan Dm Syrup) 5 ml PO Q6H PRN PRN Reason: Cough Last Admin: 07/24/17 18:19 Dose: 5 ml Rosuvastatin Calcium (Crestor) 10 mg PO HS [facility] Last Admin: 07/24/17 21:41 Dose: 10 mg Tiotropium Cavalier (Spiriva) 18 mcg INH RQ24 [facility] Last Admin: 07/23/17 07:00 Dose: 18 mcg - Labs Labs: 07/24/17 06:30 07/24/17 06:30 PT 13.3 SECONDS (9.7-12.2) H 07/23/17 08:53 INR 1.2 07/23/17 08:53 APTT 33 SECONDS (21-34) D 07/23/17 17:14 - Constitutional Appears: No Acute Distress - Eye Exam Eye Exam: Normal appearance - ENT Exam ENT Exam: Normal Exam - Neck Exam Neck Exam: Normal Inspection - Respiratory Exam Respiratory Exam: Clear to Ausculation Bilateral. absent: Accessory Muscle Use , Rales, Rhonchi, Wheezes, Respiratory Distress - Cardiovascular Exam Cardiovascular Exam: RRR, +S1, +S2. absent: Gallop, Rubs, Murmur Additional comments: +S3 - GI/Abdominal Exam GI & Abdominal Exam: Soft. absent: Distended, Guarding, Tenderness, Rebound - Extremities Exam Extremities Exam: Pedal Edema (1+) - Neurological Exam Neurological Exam: Alert, Awake, Oriented x3 - Skin Skin Exam: Dry, Intact, Normal Color, Warm Assessment and Plan - Assessment and Plan (Free Text) Assessment: 42 yo M with PMH of LAZARO, HTN, and chronic CHF with reduced EF presents to with SOB and LE edema, will be evaluated and treated for acute CHF exacerbation. Plan: Plan: 1. CHFrEF 2/2 Nonischemic Dilated Cardiomyopathy - BNP 16293, 2630 - EKG showed t-wave and st abnormalities in septal and lateral leads, LVH - Echo on 02/01/17 showed EF of 25-30% Repeat showed EF 30%, E/A 1.2, RVSP 30 mmHg, dilated LV and LA, LVH - Lipid panel WNL - Strict I&O's, daily weights, head of bead to 30 degrees - Cont Coreg, ASA - Stop Crestor - Cardiac catherization showed nonischemic dilated cardiomyopathy, EF ~20%, elevated filling pressure Cont milrinone, lasix gtt 2. Hypertensive Urgency, resolved - Cont hydralazine, coreg, lasix - Cont to monitor 3. TOM on CKD - Management per Nephro 4. Hypokalemia, resolved - Cont to monitor and replete as needed GI/DVT PPx - Per primary Pt seen and discussed in detail with Dr. Esdras Soriano, PGY1
[2017-07-25] MEDS ORDERED: Magnesium Sulfate 1 gm in D5W 1 GM/100 ML BAG IVPB ONE (08:07)
[2017-07-25 08:33] LABS: ALB/GLOB RATIO 1.1 (1.0-2.1); ALBUMIN 3.1 g/dL (3.5-5.0); ALT/SGPT 43 U/L (21-72); AST/SGOT 30 U/L (17-59); BLOOD UREA NITROGEN 20 mg/dL (9-20); CALCIUM 7.9 mg/dl (8.6-10.4); GFR AFRICAN-AMERICAN > 60; GFR NON-AFRICAN AMERICAN 52
--- NOTE | 2017-07-25 09:10 | CP.PCM.PN ---
Subjective - Date & Time of Evaluation Date of Evaluation: 07/25/17 Time of Evaluation: 09:00 - Subjective Subjective: Hospitalist Progress Note Patient was seen and examined at 9:00 AM 07/25/17 in ICU Bed #6 Upon ROS: NO chest pain NO palpitations NO SOB/Cough/Wheezing NO dysphagia/odynophagia NO abdominal pain NO n/v/d/c: moved his bowels normally after my exam on 07/24/17 NO pain with urination as he has carranza in place NO headache NO new changes in vision NO new changes in hearing NO paresthesias Also on Exam: HEENT: NCA, EOMI, PERRLA, NO pharyngeal erythema/exudate, NO lymphadenopathy, NO thyromegaly Nasal Turbinates are less erythematous and edematous Cardio: NS1 and NS2, NO M/R/G Respiratory: Bilateral lower lobes expiratory wheezing and course breath sounds Left > Right have improved since exam on 07/24/17 GI: Central Obesity, Liver and spleen could not be palpated, NT, NO guarding/ rebound tenderness Ext: 1+ pitting edema from feet to the knees bilaterally Neuro: CN II through XII are grossly intact Assessments: 1). 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 Dewitt The patient will need AICD at some point. Chest X Ray 07/23/17: left basilar airspace opacity with with questionable left pleural effusion 2). Dyspnea Inproved V/Q Scan low probability Venous Duplex Bilateral LE negative Likely secondary to HF, Body Habitus, Nicotine Addiction 3). HTN Coreg 12.5 mg PO 2x/day Hydralazine 50 mg PO TID Spiranolactone 25 mg PO 1x/day started as Bun/Cr has normalized Cozaar 25 mg PO 1x/day 4). Renal Insufficiency/CKD Stage 3 Renal U/S is limited due to body habitus but there were no masses/ hydronephrosis appreciated Secondary to Acute Systolic HF Cozaar 25 mg PO 1x/day for Renin-Angiotensin System Blockade Nephrology Dr. Chang 5). Morbid Obesity 6). Nicotine Addiction Nicotine Patch 21 mg TD 1x/day Spiriva 2 PO INH 1 capsule via handihaler device 1x/day 7). Moderate Pulmonary HTN Pulmonology Dr. Jacobo: patient will need sleep study through the [facility] and then possible CPAP at night 8). Hypokalemia KCl 40 mEQ x 1 dose Spiranolactone started 07/25/17 9). Prophylaxis Pepcid 20 mg PO 2x/day Heparin 5,000 Units SC Q8H Fluticasone 2 sprays each nostril 1x/day Promethazine DM 5 ml Q6H PRN Cough Patient was updated concerning his heart failure status and the severity of the condition requiring medication compliance, smoking cessation, and follow up with the [facility] for coordination of his care as well weight loss options. Cuco Brantley D.O. Objective - Vital Signs/Intake and Output Vital Signs (last 24 hours): Temp Pulse Resp BP Pulse Ox 98.5 F 82 13 134/68 96 07/25/17 04:00 07/25/17 05:05 07/25/17 05:05 07/25/17 05:05 07/25/17 05:05 Intake and Output: 07/25/17 07/25/17 06:59 18:59 Intake Total 328.9 Output Total 550 Balance -221.1 - Medications Medications: Current Medications Aspirin (Ecotrin) 81 mg PO DAILY [facility] Last Admin: 07/24/17 10:17 Dose: 81 mg Carvedilol (Coreg) 12.5 mg PO BID [facility] Last Admin: 07/24/17 17:27 Dose: 12.5 mg Famotidine (Pepcid) 20 mg PO BID [facility] Last Admin: 07/24/17 17:30 Dose: 20 mg Fluticasone Propionate (Flonase) 0 spr TRISTEN DAILY [facility] Last Admin: 07/24/17 11:14 Dose: 2 spr Heparin Sodium (Porcine) (Heparin) 5,000 units SC Q8H [facility] Last Admin: 07/25/17 02:34 Dose: 5,000 units Hydralazine HCl (Apresoline) 50 mg PO TID [facility] Last Admin: 07/24/17 17:28 Dose: 50 mg Milrinone Lactate/Dextrose 20 (mg/ Dextrose) 100 mls @ 9.9 mls/hr IV .Q10H7M [facility]; 0.25 MCG/KG/MIN PRN Reason: Protocol Last Admin: 07/24/17 17:31 Dose: 0.25 mcg/kg/min, 9.9 mls/hr Furosemide 100 mg/ Sodium (Chloride) 100 mls @ 5 mls/hr IVP .Q20H [facility]; 5 MG/HR PRN Reason: Protocol Last Admin: 07/25/17 02:50 Dose: Not Given Nicotine (Nicoderm Cq) 1 patch TD DAILY [facility] Last Admin: 07/24/17 10:17 Dose: Not Given Nitroglycerin (Nitrostat Sl Tab) 0.4 mg SL Q5M PRN PRN Reason: Pain, severe (8-10) Potassium Chloride (K-Dur 20 Meq Er Tab) 40 meq PO ONCE ONE Stop: 07/25/17 10:01 Promethazine HCl/Dextromethorphan (Phenergan Dm Syrup) 5 ml PO Q6H PRN PRN Reason: Cough Last Admin: 07/24/17 18:19 Dose: 5 ml Rosuvastatin Calcium (Crestor) 10 mg PO HS [facility] Last Admin: 07/24/17 21:41 Dose: 10 mg Tiotropium Ashley (Spiriva) 18 mcg INH RQ24 [facility] Last Admin: 07/23/17 07:00 Dose: 18 mcg - Labs Labs: 07/25/17 07:44 07/25/17 07:44 PT 13.3 SECONDS (9.7-12.2) H 07/23/17 08:53 INR 1.2 07/23/17 08:53 APTT 33 SECONDS (21-34) D 07/23/17 17:14
[2017-07-25] MEDS: Fluticasone Nasal 50 mcg/Spray NAS SCH (09:23)
[2017-07-25 09:50] LABS: VENOUS BLOOD GAS BASE EXCESS 8.5 mmol/L (0.0-2.0); VENOUS BLOOD GAS PCO2 57 mmHg (40-60); VENOUS BLOOD GAS PO2 33 mm/Hg (30-55)
[2017-07-25] MEDS ORDERED: Potassium Chloride 20 mEq ER Tab PO ONE (10:00)
[2017-07-25] MEDS: Tiotropium 18 mcg Cap For Inhalation INH SCH ×2 (11:13→11:14)
[2017-07-25] MEDS: Milrinone 20 MG in Dextrose 5% In Water 80 ML IV SCH ×2 (14:36→14:42)
[2017-07-25 14:40] VITALS: O2SAT 97
--- NOTE | 2017-07-25 15:01 | CP.CCUPN ---
<Moy Brand - Last Filed: 07/25/17 14:58> CCU Subjective - Physician Review Subjective (Free Text): Patient seen and examined at bedside doing well no complaints at this time OOB to chair tolerating diet CCU Objective - Vital Signs / Intake & Output Vital Signs (Last 4 hours): Vital Signs Pulse Resp BP Pulse Ox 07/25/17 14:36 79 16 111/52 L 97 07/25/17 12:05 75 18 151/82 H 100 07/25/17 12:00 68 21 122/73 98 07/25/17 11:17 122/73 07/25/17 11:11 69 17 122/73 Intake and Output (Last 8hrs): Intake & Output 07/24/17 07/25/17 07/25/17 22:59 06:59 14:59 Intake Total 579.2 189.3 849.5 Output Total 400 335 600 Balance 179.2 -145.7 249.5 Intake: IV 100 100 Intake, IV Amount 79.2 69.3 149.5 Right Distal Port 100 Internal Jugular Right Medial Port 79.2 69.3 49.5 Internal Jugular Oral 400 120 600 Output: Urine 400 335 600 Urethral (Fernandez) 400 335 600 Other: # Voids Urethral (Fernandez) 1 # Bowel Movements 1 - Medications Active Medications: Active Medications Generic Name Dose Route Start Last Admin Trade Name Freq PRN Reason Stop Dose Admin Aspirin 81 mg 07/20/17 10:00 07/25/17 09:17 Ecotrin PO 81 mg DAILY TOMEKA Administration Carvedilol 25 mg 07/25/17 10:00 07/25/17 11:17 Coreg PO 25 mg BID TOMEKA Administration Famotidine 20 mg 07/23/17 18:00 07/25/17 09:19 Pepcid PO 20 mg BID TOMEKA Administration Fluticasone Propionate 0 spr 07/21/17 16:00 07/25/17 09:23 Flonase TRISTEN 2 spr DAILY TOMEKA Administration Furosemide 40 mg 07/25/17 10:00 07/25/17 11:17 Lasix IVP 40 mg Q12 TOMEKA Administration Heparin Sodium (Porcine) 5,000 units 07/23/17 17:00 07/25/17 09:17 Heparin SC 5,000 units Q8H TOMEKA Administration Hydralazine HCl 50 mg 07/22/17 09:03 07/25/17 13:58 Apresoline PO Not Given TID TOMEKA Milrinone Lactate/Dextrose 20 100 mls @ 9.9 mls/hr 07/23/17 10:45 07/25/17 14 :42 mg/ Dextrose IV Not Given .Q10H7M TOMEKA Protocol 0.25 MCG/KG/MIN Losartan Potassium 25 mg 07/25/17 10:00 07/25/17 12:41 Cozaar PO 25 mg QAM TOMEKA Administration Promethazine HCl/Dextromethorphan 5 ml 07/22/17 09:09 07/24/17 18:19 Phenergan Dm Syrup PO 5 ml Q6H PRN Administration Cough Rosuvastatin Calcium 10 mg 07/24/17 22:00 07/24/17 21:41 Crestor PO 10 mg HS TOMEKA Administration Spironolactone 25 mg 07/25/17 10:00 07/25/17 09:23 Aldactone PO 25 mg DAILY TOMEKA Administration Tiotropium [place] 18 mcg 07/22/17 09:30 07/25/17 11:14 Spiriva INH Not Given RQ24 TOMEKA - Patient Studies Lab Studies: Lab Studies 07/25/17 07/25/17 07/25/17 Range/Units 12:17 09:47 07:44 WBC (4.8-10.8) K/uL RBC (4.40-5.90) Mil/uL Hgb (12.0-18.0) g/dL Hct (35.0-51.0) % MCV (80.0-94.0) fL MCH (27.0-31.0) pg MCHC (33.0-37.0) g/dL RDW (11.5-14.5) % Plt Count (130-400) K/uL MPV (7.2-11.7) fL Neut % (Auto) (50.0-75.0) % Lymph % (Auto) (20.0-40.0) % Whitley % (Auto) (0.0-10.0) % Eos % (Auto) (0.0-4.0) % Baso % (Auto) (0.0-2.0) % Neut # (Auto) (1.8-7.0) K/uL Lymph # (Auto) (1.0-4.3) K/uL Whitley # (Auto) (0.0-0.8) K/uL Eos # (Auto) (0.0-0.7) K/uL Baso # (Auto) (0.0-0.2) K/uL pO2 33 (30-55) mm/Hg VBG pH 7.40 (7.32-7.43) VBG pCO2 57 (40-60) mmHg VBG HCO3 30.6 mmol/L VBG Total CO2 37.0 H (22-28) mmol/L VBG O2 Sat (Calc) 71.8 H (40-65) % VBG Base Excess 8.5 H (0.0-2.0) mmol/L VBG Potassium 3.7 (3.6-5.2) mmol/L Glucose 113 H (75-110) mg/dl Lactate 0.9 (0.7-2.1) mmol/L Sodium 133.0 133 (132-148) mmol/L Potassium 3.5 L (3.6-5.2) mmol/L Chloride 98.0 94 L (98-107) mmol/L Carbon Dioxide 32 H (22-30) mmol/L Anion Gap 11 (10-20) BUN 20 (9-20) mg/dL Creatinine 1.5 (0.8-1.5) mg/dL Est GFR ( Amer) > 60 Est GFR (Non-Af Amer) 52 POC Glucose (mg/dL) 86 (65-110) mg/dL Random Glucose 96 (75-110) mg/dL Calcium 7.9 L (8.6-10.4) mg/dl Phosphorus 2.7 (2.5-4.5) mg/dL Magnesium 2.0 (1.6-2.3) mg/dL Total Bilirubin 0.8 (0.2-1.3) mg/dL AST 30 (17-59) U/L ALT 43 (21-72) U/L Alkaline Phosphatase 87 (38-126) U/L Total Protein 6.0 L (6.3-8.3) g/dL Albumin 3.1 L (3.5-5.0) g/dL Globulin 2.9 (2.2-3.9) gm/dL Albumin/Globulin Ratio 1.1 (1.0-2.1) Venous Blood Potassium 3.7 (3.6-5.2) mmol/L 07/25/17 07/25/17 07/24/17 Range/Units 07:44 07:25 21:10 WBC 5.3 (4.8-10.8) K/uL RBC 5.34 (4.40-5.90) Mil/uL Hgb 13.9 (12.0-18.0) g/dL Hct 42.1 (35.0-51.0) % MCV 78.8 L (80.0-94.0) fL MCH 26.1 L (27.0-31.0) pg MCHC 33.1 (33.0-37.0) g/dL RDW 14.4 (11.5-14.5) % Plt Count 157 (130-400) K/uL MPV 7.7 (7.2-11.7) fL Neut % (Auto) 65.4 (50.0-75.0) % Lymph % (Auto) 15.1 L (20.0-40.0) % Whitley % (Auto) 16.6 H (0.0-10.0) % Eos % (Auto) 2.1 (0.0-4.0) % Baso % (Auto) 0.8 (0.0-2.0) % Neut # (Auto) 3.4 (1.8-7.0) K/uL Lymph # (Auto) 0.8 L (1.0-4.3) K/uL Whitley # (Auto) 0.9 H (0.0-0.8) K/uL Eos # (Auto) 0.1 (0.0-0.7) K/uL Baso # (Auto) 0.0 (0.0-0.2) K/uL pO2 (30-55) mm/Hg VBG pH (7.32-7.43) VBG pCO2 (40-60) mmHg VBG HCO3 mmol/L VBG Total CO2 (22-28) mmol/L VBG O2 Sat (Calc) (40-65) % VBG Base Excess (0.0-2.0) mmol/L VBG Potassium (3.6-5.2) mmol/L Glucose (75-110) mg/dl Lactate (0.7-2.1) mmol/L Sodium (132-148) mmol/L Potassium (3.6-5.2) mmol/L Chloride (98-107) mmol/L Carbon Dioxide (22-30) mmol/L Anion Gap (10-20) BUN (9-20) mg/dL Creatinine (0.8-1.5) mg/dL Est GFR ( Amer) Est GFR (Non-Af Amer) POC Glucose (mg/dL) 87 92 (65-110) mg/dL Random Glucose (75-110) mg/dL Calcium (8.6-10.4) mg/dl Phosphorus (2.5-4.5) mg/dL Magnesium (1.6-2.3) mg/dL Total Bilirubin (0.2-1.3) mg/dL AST (17-59) U/L ALT (21-72) U/L Alkaline Phosphatase (38-126) U/L Total Protein (6.3-8.3) g/dL Albumin (3.5-5.0) g/dL Globulin (2.2-3.9) gm/dL Albumin/Globulin Ratio (1.0-2.1) Venous Blood Potassium (3.6-5.2) mmol/L 07/24/17 Range/Units 16:20 WBC (4.8-10.8) K/uL RBC (4.40-5.90) Mil/uL Hgb (12.0-18.0) g/dL Hct (35.0-51.0) % MCV (80.0-94.0) fL MCH (27.0-31.0) pg MCHC (33.0-37.0) g/dL RDW (11.5-14.5) % Plt Count (130-400) K/uL MPV (7.2-11.7) fL Neut % (Auto) (50.0-75.0) % Lymph % (Auto) (20.0-40.0) % Whitley % (Auto) (0.0-10.0) % Eos % (Auto) (0.0-4.0) % Baso % (Auto) (0.0-2.0) % Neut # (Auto) (1.8-7.0) K/uL Lymph # (Auto) (1.0-4.3) K/uL Whitley # (Auto) (0.0-0.8) K/uL Eos # (Auto) (0.0-0.7) K/uL Baso # (Auto) (0.0-0.2) K/uL pO2 (30-55) mm/Hg VBG pH (7.32-7.43) VBG pCO2 (40-60) mmHg VBG HCO3 mmol/L VBG Total CO2 (22-28) mmol/L VBG O2 Sat (Calc) (40-65) % VBG Base Excess (0.0-2.0) mmol/L VBG Potassium (3.6-5.2) mmol/L Glucose (75-110) mg/dl Lactate (0.7-2.1) mmol/L Sodium (132-148) mmol/L Potassium (3.6-5.2) mmol/L Chloride (98-107) mmol/L Carbon Dioxide (22-30) mmol/L Anion Gap (10-20) BUN (9-20) mg/dL Creatinine (0.8-1.5) mg/dL Est GFR ( Amer) Est GFR (Non-Af Amer) POC Glucose (mg/dL) 82 (65-110) mg/dL Random Glucose (75-110) mg/dL Calcium (8.6-10.4) mg/dl Phosphorus (2.5-4.5) mg/dL Magnesium (1.6-2.3) mg/dL Total Bilirubin (0.2-1.3) mg/dL AST (17-59) U/L ALT (21-72) U/L Alkaline Phosphatase (38-126) U/L Total Protein (6.3-8.3) g/dL Albumin (3.5-5.0) g/dL Globulin (2.2-3.9) gm/dL Albumin/Globulin Ratio (1.0-2.1) Venous Blood Potassium (3.6-5.2) mmol/L Laboratory Results - last 24 hr 07/24/17 07/24/17 07/25/17 16:20 21:10 07:25 WBC RBC Hgb Hct MCV MCH MCHC RDW Plt Count MPV Neut % (Auto) Lymph % (Auto) Whitley % (Auto) Eos % (Auto) Baso % (Auto) Neut # (Auto) Lymph # (Auto) Whitley # (Auto) Eos # (Auto) Baso # (Auto) pO2 VBG pH VBG pCO2 VBG HCO3 VBG Total CO2 VBG O2 Sat (Calc) VBG Base Excess VBG Potassium Glucose Lactate Sodium Potassium Chloride Carbon Dioxide Anion Gap BUN Creatinine Est GFR ( Amer) Est GFR (Non-Af Amer) POC Glucose (mg/dL) 82 92 87 Random Glucose Calcium Phosphorus Magnesium Total Bilirubin AST ALT Alkaline Phosphatase Total Protein Albumin Globulin Albumin/Globulin Ratio Venous Blood Potassium 07/25/17 07/25/17 07/25/17 07:44 07:44 09:47 WBC 5.3 RBC 5.34 Hgb 13.9 Hct 42.1 MCV 78.8 L MCH 26.1 L MCHC 33.1 RDW 14.4 Plt Count 157 MPV 7.7 Neut % (Auto) 65.4 Lymph % (Auto) 15.1 L Whitley % (Auto) 16.6 H Eos % (Auto) 2.1 Baso % (Auto) 0.8 Neut # (Auto) 3.4 Lymph # (Auto) 0.8 L Whitley # (Auto) 0.9 H Eos # (Auto) 0.1 Baso # (Auto) 0.0 pO2 33 VBG pH 7.40 VBG pCO2 57 VBG HCO3 30.6 VBG Total CO2 37.0 H VBG O2 Sat (Calc) 71.8 H VBG Base Excess 8.5 H VBG Potassium 3.7 Glucose 113 H Lactate 0.9 Sodium 133 133.0 Potassium 3.5 L Chloride 94 L 98.0 Carbon Dioxide 32 H Anion Gap 11 BUN 20 Creatinine 1.5 Est GFR ( Amer) > 60 Est GFR (Non-Af Amer) 52 POC Glucose (mg/dL) Random Glucose 96 Calcium 7.9 L Phosphorus 2.7 Magnesium 2.0 Total Bilirubin 0.8 AST 30 ALT 43 Alkaline Phosphatase 87 Total Protein 6.0 L Albumin 3.1 L Globulin 2.9 Albumin/Globulin Ratio 1.1 Venous Blood Potassium 3.7 07/25/17 12:17 WBC RBC Hgb Hct MCV MCH MCHC RDW Plt Count MPV Neut % (Auto) Lymph % (Auto) Whitley % (Auto) Eos % (Auto) Baso % (Auto) Neut # (Auto) Lymph # (Auto) Whitley # (Auto) Eos # (Auto) Baso # (Auto) pO2 VBG pH VBG pCO2 VBG HCO3 VBG Total CO2 VBG O2 Sat (Calc) VBG Base Excess VBG Potassium Glucose Lactate Sodium Potassium Chloride Carbon Dioxide Anion Gap BUN Creatinine Est GFR ( Amer) Est GFR (Non-Af Amer) POC Glucose (mg/dL) 86 Random Glucose Calcium Phosphorus Magnesium Total Bilirubin AST ALT Alkaline Phosphatase Total Protein Albumin Globulin Albumin/Globulin Ratio Venous Blood Potassium Fingerstick Blood Sugar Results: 92 Critical Care Progress Note - Nutrition Nutrition: Nutrition Category Date Time Status Heart Healthy Diet [DIET] Diets 07/23/17 Breakfast Active Assessment/Plan - Assessment and Plan (Free Text) Assessment: 42M w/nonischemic cardiomyopathy Cardio: HTN, CHF ([facility]) ASA 81mg Increase Coreg to 25 BID Furosemide 40 IVP Q12 Hydralizine 50mg PO TID milrinone drip Losartan 25 PO QD Crestor 10mg QD Spironolactone 25 PO QD VBG/SVO2 Pulm: LAZARO, Pulm HTN ([facility]) Spiriva 18ug INH CPAP Electrolytes: hypomagnesemia, hypokalemia Magnesium Sulfate kdur PPX: Pepcid 20mg PO BID Heparin 5,000 units Full code <Ant Brantley M - Last Filed: 07/25/17 20:19> CCU Objective - Vital Signs / Intake & Output Vital Signs (Last 4 hours): Vital Signs BP 07/25/17 17:19 124/91 H 07/25/17 17:13 124/91 H 07/25/17 16:30 127/92 H Intake and Output (Last 8hrs): Intake & Output 07/25/17 07/25/17 07/25/17 06:59 14:59 22:59 Intake Total 189.3 1359.2 264.3 Output Total 335 1400 700 Balance -145.7 -40.8 -435.7 Intake: IV 100 14.4 Intake, IV Amount 69.3 179.2 9.9 Right Distal Port 100 Internal Jugular Right Medial Port 69.3 79.2 9.9 Internal Jugular Oral 120 1080 240 Output: Urine 335 1400 700 Urethral (Fernandez) 335 1400 700 Other: # Voids Urethral (Fernandez) 1 1 # Bowel Movements 1 - Patient Studies Lab Studies: Lab Studies 07/25/17 07/25/1707/25/18 Range/Units 16:23 12:17 09:47 WBC (4.8-10.8) K/uL RBC (4.40-5.90) Mil/uL Hgb (12.0-18.0) g/dL Hct (35.0-51.0) % MCV (80.0-94.0) fL MCH (27.0-31.0) pg MCHC (33.0-37.0) g/dL RDW (11.5-14.5) % Plt Count (130-400) K/uL MPV (7.2-11.7) fL Neut % (Auto) (50.0-75.0) % Lymph % (Auto) (20.0-40.0) % Whitley % (Auto) (0.0-10.0) % Eos % (Auto) (0.0-4.0) % Baso % (Auto) (0.0-2.0) % Neut # (Auto) (1.8-7.0) K/uL Lymph # (Auto) (1.0-4.3) K/uL Whitley # (Auto) (0.0-0.8) K/uL Eos # (Auto) (0.0-0.7) K/uL Baso # (Auto) (0.0-0.2) K/uL pO2 33 (30-55) mm/Hg VBG pH 7.40 (7.32-7.43) VBG pCO2 57 (40-60) mmHg VBG HCO3 30.6 mmol/L VBG Total CO2 37.0 H (22-28) mmol/L VBG O2 Sat (Calc) 71.8 H (40-65) % VBG Base Excess 8.5 H (0.0-2.0) mmol/L VBG Potassium 3.7 (3.6-5.2) mmol/L Glucose 113 H (75-110) mg/dl Lactate 0.9 (0.7-2.1) mmol/L Sodium 133.0 (132-148) mmol/L Potassium (3.6-5.2) mmol/L Chloride 98.0 (98-107) mmol/L Carbon Dioxide (22-30) mmol/L Anion Gap (10-20) BUN (9-20) mg/dL Creatinine (0.8-1.5) mg/dL Est GFR ( Amer) Est GFR (Non-Af Amer) POC Glucose (mg/dL) 95 86 (65-110) mg/dL Random Glucose (75-110) mg/dL Calcium (8.6-10.4) mg/dl Phosphorus (2.5-4.5) mg/dL Magnesium (1.6-2.3) mg/dL Total Bilirubin (0.2-1.3) mg/dL AST (17-59) U/L ALT (21-72) U/L Alkaline Phosphatase (38-126) U/L Total Protein (6.3-8.3) g/dL Albumin (3.5-5.0) g/dL Globulin (2.2-3.9) gm/dL Albumin/Globulin Ratio (1.0-2.1) Venous Blood Potassium 3.7 (3.6-5.2) mmol/L 07/25/17 07/25/17 07/25/17 Range/Units 07:44 07:44 07:25 WBC 5.3 (4.8-10.8) K/uL RBC 5.34 (4.40-5.90) Mil/uL Hgb 13.9 (12.0-18.0) g/dL Hct 42.1 (35.0-51.0) % MCV 78.8 L (80.0-94.0) fL MCH 26.1 L (27.0-31.0) pg MCHC 33.1 (33.0-37.0) g/dL RDW 14.4 (11.5-14.5) % Plt Count 157 (130-400) K/uL MPV 7.7 (7.2-11.7) fL Neut % (Auto) 65.4 (50.0-75.0) % Lymph % (Auto) 15.1 L (20.0-40.0) % Whitley % (Auto) 16.6 H (0.0-10.0) % Eos % (Auto) 2.1 (0.0-4.0) % Baso % (Auto) 0.8 (0.0-2.0) % Neut # (Auto) 3.4 (1.8-7.0) K/uL Lymph # (Auto) 0.8 L (1.0-4.3) K/uL Whitley # (Auto) 0.9 H (0.0-0.8) K/uL Eos # (Auto) 0.1 (0.0-0.7) K/uL Baso # (Auto) 0.0 (0.0-0.2) K/uL pO2 (30-55) mm/Hg VBG pH (7.32-7.43) VBG pCO2 (40-60) mmHg VBG HCO3 mmol/L VBG Total CO2 (22-28) mmol/L VBG O2 Sat (Calc) (40-65) % VBG Base Excess (0.0-2.0) mmol/L VBG Potassium (3.6-5.2) mmol/L Glucose (75-110) mg/dl Lactate (0.7-2.1) mmol/L Sodium 133 (132-148) mmol/L Potassium 3.5 L (3.6-5.2) mmol/L Chloride 94 L (98-107) mmol/L Carbon Dioxide 32 H (22-30) mmol/L Anion Gap 11 (10-20) BUN 20 (9-20) mg/dL Creatinine 1.5 (0.8-1.5) mg/dL Est GFR ( Amer) > 60 Est GFR (Non-Af Amer) 52 POC Glucose (mg/dL) 87 (65-110) mg/dL Random Glucose 96 (75-110) mg/dL Calcium 7.9 L (8.6-10.4) mg/dl Phosphorus 2.7 (2.5-4.5) mg/dL Magnesium 2.0 (1.6-2.3) mg/dL Total Bilirubin 0.8 (0.2-1.3) mg/dL AST 30 (17-59) U/L ALT 43 (21-72) U/L Alkaline Phosphatase 87 (38-126) U/L Total Protein 6.0 L (6.3-8.3) g/dL Albumin 3.1 L (3.5-5.0) g/dL Globulin 2.9 (2.2-3.9) gm/dL Albumin/Globulin Ratio 1.1 (1.0-2.1) Venous Blood Potassium (3.6-5.2) mmol/L 07/24/17 Range/Units 21:10 WBC (4.8-10.8) K/uL RBC (4.40-5.90) Mil/uL Hgb (12.0-18.0) g/dL Hct (35.0-51.0) % MCV (80.0-94.0) fL MCH (27.0-31.0) pg MCHC (33.0-37.0) g/dL RDW (11.5-14.5) % Plt Count (130-400) K/uL MPV (7.2-11.7) fL Neut % (Auto) (50.0-75.0) % Lymph % (Auto) (20.0-40.0) % Whitley % (Auto) (0.0-10.0) % Eos % (Auto) (0.0-4.0) % Baso % (Auto) (0.0-2.0) % Neut # (Auto) (1.8-7.0) K/uL Lymph # (Auto) (1.0-4.3) K/uL Whitley # (Auto) (0.0-0.8) K/uL Eos # (Auto) (0.0-0.7) K/uL Baso # (Auto) (0.0-0.2) K/uL pO2 (30-55) mm/Hg VBG pH (7.32-7.43) VBG pCO2 (40-60) mmHg VBG HCO3 mmol/L VBG Total CO2 (22-28) mmol/L VBG O2 Sat (Calc) (40-65) % VBG Base Excess (0.0-2.0) mmol/L VBG Potassium (3.6-5.2) mmol/L Glucose (75-110) mg/dl Lactate (0.7-2.1) mmol/L Sodium (132-148) mmol/L Potassium (3.6-5.2) mmol/L Chloride (98-107) mmol/L Carbon Dioxide (22-30) mmol/L Anion Gap (10-20) BUN (9-20) mg/dL Creatinine (0.8-1.5) mg/dL Est GFR ( Amer) Est GFR (Non-Af Amer) POC Glucose (mg/dL) 92 (65-110) mg/dL Random Glucose (75-110) mg/dL Calcium (8.6-10.4) mg/dl Phosphorus (2.5-4.5) mg/dL Magnesium (1.6-2.3) mg/dL Total Bilirubin (0.2-1.3) mg/dL AST (17-59) U/L ALT (21-72) U/L Alkaline Phosphatase (38-126) U/L Total Protein (6.3-8.3) g/dL Albumin (3.5-5.0) g/dL Globulin (2.2-3.9) gm/dL Albumin/Globulin Ratio (1.0-2.1) Venous Blood Potassium (3.6-5.2) mmol/L Laboratory Results - last 24 hr 07/24/17 07/25/17 07/25/17 21:10 07:25 07:44 WBC 5.3 RBC 5.34 Hgb 13.9 Hct 42.1 MCV 78.8 L MCH 26.1 L MCHC 33.1 RDW 14.4 Plt Count 157 MPV 7.7 Neut % (Auto) 65.4 Lymph % (Auto) 15.1 L Whitley % (Auto) 16.6 H Eos % (Auto) 2.1 Baso % (Auto) 0.8 Neut # (Auto) 3.4 Lymph # (Auto) 0.8 L Whitley # (Auto) 0.9 H Eos # (Auto) 0.1 Baso # (Auto) 0.0 pO2 VBG pH VBG pCO2 VBG HCO3 VBG Total CO2 VBG O2 Sat (Calc) VBG Base Excess VBG Potassium Glucose Lactate Sodium Potassium Chloride Carbon Dioxide Anion Gap BUN Creatinine Est GFR ( Amer) Est GFR (Non-Af Amer) POC Glucose (mg/dL) 92 87 Random Glucose Calcium Phosphorus Magnesium Total Bilirubin AST ALT Alkaline Phosphatase Total Protein Albumin Globulin Albumin/Globulin Ratio Venous Blood Potassium 07/25/17 07/25/17 07/25/17 07:44 09:47 12:17 WBC RBC Hgb Hct MCV MCH MCHC RDW Plt Count MPV Neut % (Auto) Lymph % (Auto) Whitley % (Auto) Eos % (Auto) Baso % (Auto) Neut # (Auto) Lymph # (Auto) Whitley # (Auto) Eos # (Auto) Baso # (Auto) pO2 33 VBG pH 7.40 VBG pCO2 57 VBG HCO3 30.6 VBG Total CO2 37.0 H VBG O2 Sat (Calc) 71.8 H VBG Base Excess 8.5 H VBG Potassium 3.7 Glucose 113 H Lactate 0.9 Sodium 133 133.0 Potassium 3.5 L Chloride 94 L 98.0 Carbon Dioxide 32 H Anion Gap 11 BUN 20 Creatinine 1.5 Est GFR ( Amer) > 60 Est GFR (Non-Af Amer) 52 POC Glucose (mg/dL) 86 Random Glucose 96 Calcium 7.9 L Phosphorus 2.7 Magnesium 2.0 Total Bilirubin 0.8 AST 30 ALT 43 Alkaline Phosphatase 87 Total Protein 6.0 L Albumin 3.1 L Globulin 2.9 Albumin/Globulin Ratio 1.1 Venous Blood Potassium 3.7 07/25/17 16:23 WBC RBC Hgb Hct MCV MCH MCHC RDW Plt Count MPV Neut % (Auto) Lymph % (Auto) Whitley % (Auto) Eos % (Auto) Baso % (Auto) Neut # (Auto) Lymph # (Auto) Whitley # (Auto) Eos # (Auto) Baso # (Auto) pO2 VBG pH VBG pCO2 VBG HCO3 VBG Total CO2 VBG O2 Sat (Calc) VBG Base Excess VBG Potassium Glucose Lactate Sodium Potassium Chloride Carbon Dioxide Anion Gap BUN Creatinine Est GFR ( Amer) Est GFR (Non-Af Amer) POC Glucose (mg/dL) 95 Random Glucose Calcium Phosphorus Magnesium Total Bilirubin AST ALT Alkaline Phosphatase Total Protein Albumin Globulin Albumin/Globulin Ratio Venous Blood Potassium Critical Care Progress Note - Nutrition Nutrition: Nutrition Category Date Time Status Heart Healthy Diet [DIET] Diets 07/23/17 Breakfast Active Assessment/Plan - Assessment and Plan (Free Text) Plan: Patient remains hemodynamically stable. -SCVo2 71% which equates to adequate CI being > 2.2 -Patinet with severe systolic heart failuer -will benefit from optimizing heart failure medciations -cardiology input -Patient remains hemodynamically stable - Date & Time Date: 07/25/17 Time: 20:19
[2017-07-25 17:19] VITALS: BP 124/91
[2017-07-25 17:33] VITALS: PULSE 69; RESP 13
[2017-07-25 17:34] VITALS: TEMP 97.6
--- NOTE | 2017-07-25 19:35 | CP.PCM.DIS ---
Provider - Provider Date of Admission: 07/19/17 10:05 Attending physician: Cuco Brantley MD Primary care physician: None Consults: Cardiology Dr. Marisa Steward Time Spent in preparation of Discharge (in minutes): 40 Hospital Course - Lab Results Lab Results: Most Recent Lab Values WBC 5.3 K/uL (4.8-10.8) 07/25/17 07:44 RBC 5.34 Mil/uL (4.40-5.90) 07/25/17 07:44 Hgb 13.9 g/dL (12.0-18.0) 07/25/17 07:44 Hct 42.1 % (35.0-51.0) 07/25/17 07:44 MCV 78.8 fL (80.0-94.0) L 07/25/17 07:44 MCH 26.1 pg (27.0-31.0) L 07/25/17 07:44 MCHC 33.1 g/dL (33.0-37.0) 07/25/17 07:44 RDW 14.4 % (11.5-14.5) 07/25/17 07:44 Plt Count 157 K/uL (130-400) 07/25/17 07:44 MPV 7.7 fL (7.2-11.7) 07/25/17 07:44 Neut % (Auto) 65.4 % (50.0-75.0) 07/25/17 07:44 Lymph % (Auto) 15.1 % (20.0-40.0) L 07/25/17 07:44 [place] % (Auto) 16.6 % (0.0-10.0) H 07/25/17 07:44 Eos % (Auto) 2.1 % (0.0-4.0) 07/25/17 07:44 Baso % (Auto) 0.8 % (0.0-2.0) 07/25/17 07:44 Neut # (Auto) 3.4 K/uL (1.8-7.0) 07/25/17 07:44 Lymph # (Auto) 0.8 K/uL (1.0-4.3) L 07/25/17 07:44 [place] # (Auto) 0.9 K/uL (0.0-0.8) H 07/25/17 07:44 Eos # (Auto) 0.1 K/uL (0.0-0.7) 07/25/17 07:44 Baso # (Auto) 0.0 K/uL (0.0-0.2) 07/25/17 07:44 Neutrophils % (Manual) 52 % (50-75) 07/23/17 06:20 Band Neutrophils % 1 % (0-2) 07/22/17 06:21 Lymphocytes % (Manual) 22 % (20-40) 07/23/17 06:20 Monocytes % (Manual) 26 % (0-10) H 07/23/17 06:20 Eosinophils % (Manual) 2 % (0-4) 07/22/17 06:21 Basophils % (Manual) 1 % (0-2) 07/21/17 06:34 Platelet Estimate Normal (NORMAL) 07/23/17 06:20 RBC Morphology Normal 07/23/17 06:20 Anisocytosis (manual) Slight 07/22/17 06:21 Ovalocytes Slight 07/22/17 06:21 PT 13.3 SECONDS (9.7-12.2) H 07/23/17 08:53 INR 1.2 07/23/17 08:53 APTT 33 SECONDS (21-34) D 07/23/17 17:14 D-Dimer, Quantitative 395 ng/mlDDU (0-243) H 07/19/17 09:05 Puncture Site Line 07/23/17 10:21 pCO2 58 mm/Hg (35-45) H 07/23/17 10:21 pO2 33 mm/Hg (30-55) 07/25/17 09:47 HCO3 27.9 mmol/L (21-28) 07/23/17 10:21 ABG pH 7.34 (7.35-7.45) L 07/23/17 10:21 ABG Total CO2 33.1 mmol/L (22-28) H 07/23/17 10:21 ABG O2 Saturation 100.0 % (95-98) H 07/23/17 10:21 ABG Base Excess 3.8 mmol/L (-2.0-3.0) H 07/23/17 10:21 ABG Hemoglobin 14.3 g/dL (11.7-17.4) 07/23/17 10:21 ABG Carboxyhemoglobin 2.0 % (0.5-1.5) H 07/23/17 10:21 POC ABG HHb (Measured) 0.0 % (0.0-5.0) 07/23/17 10:21 ABG Methemoglobin 1.2 % (0.0-3.0) 07/23/17 10:21 Micky Test Na 07/23/17 10:21 ABG Potassium 3.0 mmol/L (3.6-5.2) L 07/19/17 13:05 VBG pH 7.40 (7.32-7.43) 07/25/17 09:47 VBG pCO2 57 mmHg (40-60) 07/25/17 09:47 VBG HCO3 30.6 mmol/L 07/25/17 09:47 VBG Total CO2 37.0 mmol/L (22-28) H 07/25/17 09:47 VBG O2 Sat (Calc) 71.8 % (40-65) H 07/25/17 09:47 VBG Base Excess 8.5 mmol/L (0.0-2.0) H 07/25/17 09:47 VBG Potassium 3.7 mmol/L (3.6-5.2) 07/25/17 09:47 A-a O2 Difference 25.0 mm/Hg 07/19/17 13:05 Respiratory Index 0.3 07/19/17 13:05 Hgb O2 Saturation 96.8 % (95.0-98.0) 07/23/17 10:21 Sodium 133.0 mmol/l (132-148) 07/25/17 09:47 Chloride 98.0 mmol/L (98-107) 07/25/17 09:47 Glucose 113 mg/dl (75-110) H 07/25/17 09:47 Lactate 0.9 mmol/L (0.7-2.1) 07/25/17 09:47 FiO2 21.0 % 07/19/17 13:05 Blood Gas Comments Ao 07/23/17 10:21 Crit Value Called To Dr steward 07/23/17 10:21 Crit Value Called By Ruth Ann payton management liaison 07/23/17 10:21 Crit Value Read Back N 07/23/17 10:21 Blood Gas Notified Time 1030 07/23/17 10:21 Sodium 133 mmol/L (132-148) 07/25/17 07:44 Potassium 3.5 mmol/L (3.6-5.2) L 07/25/17 07:44 Chloride 94 mmol/L (98-107) L 07/25/17 07:44 Carbon Dioxide 32 mmol/L (22-30) H 07/25/17 07:44 Anion Gap 11 (10-20) 07/25/17 07:44 BUN 20 mg/dL (9-20) 07/25/17 07:44 Creatinine 1.5 mg/dL (0.8-1.5) 07/25/17 07:44 Est GFR ( Amer) > 60 07/25/17 07:44 Est GFR (Non-Af Amer) 52 07/25/17 07:44 POC Glucose (mg/dL) 95 mg/dL (65-110) 07/25/17 16:23 Random Glucose 96 mg/dL (75-110) 07/25/17 07:44 Hemoglobin A1c 5.9 % (4.2-6.5) 07/20/17 07:23 Calcium 7.9 mg/dl (8.6-10.4) L 07/25/17 07:44 Phosphorus 2.7 mg/dL (2.5-4.5) 07/25/17 07:44 Magnesium 2.0 mg/dL (1.6-2.3) 07/25/17 07:44 Total Bilirubin 0.8 mg/dL (0.2-1.3) 07/25/17 07:44 AST 30 U/L (17-59) 07/25/17 07:44 ALT 43 U/L (21-72) 07/25/17 07:44 Alkaline Phosphatase 87 U/L (38-126) 07/25/17 07:44 Total Creatine Kinase 102 U/L (55-170) 07/19/17 19:45 CK-MB (Mass) 1.77 ng/mL (0.0-3.38) 07/19/17 19:45 Troponin I 0.1010 ng/mL (0.00-0.120) 07/19/17 19:45 NT-Pro-B Natriuret Pep 2630 pg/mL (0-450) H 07/24/17 06:30 Total Protein 6.0 g/dL (6.3-8.3) L 07/25/17 07:44 Albumin 3.1 g/dL (3.5-5.0) L 07/25/17 07:44 Globulin 2.9 gm/dL (2.2-3.9) 07/25/17 07:44 Albumin/Globulin Ratio 1.1 (1.0-2.1) 07/25/17 07:44 Triglycerides 64 mg/dL (0-149) D 07/20/17 07:23 Cholesterol 133 mg/dL (0-199) 07/20/17 07:23 LDL Cholesterol Direct 77 mg/dL (0-129) 07/20/17 07:23 HDL Cholesterol 37 mg/dL (30-70) 07/20/17 07:23 Renin 0.32 ng/mL/h (0.25-5.82) 07/20/17 07:23 Aldosterone 5 ng/dL 07/20/17 07:23 Aldosterone/Renin Ratio 15.6 Ratio (0.9-28.9) 07/20/17 07:23 TSH 3rd Generation 2.91 mIU/L (0.46-4.68) 07/20/17 07:23 Arterial Blood Potassium 3.0 mmol/L (3.6-5.2) L 07/19/17 13:05 Venous Blood Potassium 3.7 mmol/L (3.6-5.2) 07/25/17 09:47 Urine Color Yellow (YELLOW) 07/19/17 22:42 Urine Clarity Clear (Clear) 07/19/17 22:42 Urine pH 6.0 (5.0-8.0) 07/19/17 22:42 Ur Specific [place] 1.010 (1.003-1.030) 07/19/17 22:42 Urine Protein 1+ mg/dL (NEGATIVE) H 07/19/17 22:42 Urine Glucose (UA) Normal mg/dL (Normal) 07/19/17 22:42 Urine Ketones Negative mg/dL (NEGATIVE) 07/19/17 22:42 Urine Blood Negative (NEGATIVE) 07/19/17 22:42 Urine Nitrate Negative (NEGATIVE) 07/19/17 22:42 Urine Bilirubin Negative (NEGATIVE) 07/19/17 22:42 Urine Urobilinogen Normal mg/dL (0.2-1.0) 07/19/17 22:42 Ur Leukocyte Esterase Neg [place]/uL (Negative) 07/19/17 22:42 Urine RBC (Auto) < 1 /hpf (0-3) 07/19/17 22:42 Ur Squamous Epith Cells < 1 /hpf (0-5) 07/19/17 22:42 Hyaline Casts 6-10 /lpf (0-2) H 07/19/17 22:42 Ur Random Creatinine 120.6 mg/dL 07/20/17 13:04 U Random Total Protein 52.0 mg/dL (0.0-12.0) H 07/20/17 13:00 Urine Microalbumin 185.3 mg/L (0.0-16.6) H 07/20/17 13:04 Complement C3 106.0 mg/dL (88.0-165.0) 07/23/17 06:20 Complement C4 26.5 mg/dL (14.0-44.0) 07/23/17 06:20 RPR Nonreactive (NONREACTIVE) 07/23/17 06:20 Hep Bs Antigen Negative (NEGATIVE) 07/23/17 06:20 Hepatitis C Antibody Negative (NEGATIVE) 07/23/17 06:20 HIV 1&2 Antibody Screen Negative (NEGATIVE) 07/23/17 06:20 Influenza Typ A,B (EIA) Negative for flu a/b (NEGATIVE) 07/19/17 Unknown - Hospital Course Hospital Course: Hospitalist Discharge Summary Please see the individual Assessment and Plans below for a summary of this patient's care. Despite explaining to patient the severity of his heart failure and the necessity of Milrinone Drip, patient signed out AMA and understood that without the Milrinone Drip the likelyhood of cardiac arrest was extremely high. He declined PICC line. He understood the risks to his health that he is taking. Instructions were provided to patient to follow up with the [facility] in the next 7 days and Rx were provided to patient by the ICU Resident Dr. Opal Mccall: ASA, Coreg, Atorvastatin, Breo Elipta, Lasix, Hydralazine, Aldactone. Cozaar was held until he had repeat BMP which he was instructed to have done through the [facility]. Patient was seen and examined at 9:00 AM 07/25/17 in ICU Bed #6 Upon ROS: NO chest pain NO palpitations NO SOB/Cough/Wheezing NO dysphagia/odynophagia NO abdominal pain NO n/v/d/c: moved his bowels normally after my exam on 07/24/17 NO pain with urination as he has carranza in place NO headache NO new changes in vision NO new changes in hearing NO paresthesias Also on Exam: HEENT: NCA, EOMI, PERRLA, NO pharyngeal erythema/exudate, NO lymphadenopathy, NO thyromegaly Nasal Turbinates are less erythematous and edematous Cardio: NS1 and NS2, NO M/R/G Respiratory: Bilateral lower lobes expiratory wheezing and course breath sounds Left > Right have improved since exam on 07/24/17 GI: Central Obesity, Liver and spleen could not be palpated, NT, NO guarding/ rebound tenderness Ext: 1+ pitting edema from feet to the knees bilaterally Neuro: CN II through XII are grossly intact Assessments: 1). 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 Steward The patient will need AICD at some point. Chest X Ray 07/23/17: left basilar airspace opacity with with questionable left pleural effusion 2). Dyspnea Inproved V/Q Scan low probability Venous Duplex Bilateral LE negative Likely secondary to HF, Body Habitus, Nicotine Addiction 3). HTN Coreg 12.5 mg PO 2x/day Hydralazine 50 mg PO TID Spiranolactone 25 mg PO 1x/day started as Bun/Cr has normalized Cozaar 25 mg PO 1x/day 4). Renal Insufficiency/CKD Stage 3 Renal U/S is limited due to body habitus but there were no masses/ hydronephrosis appreciated Secondary to Acute Systolic HF Cozaar 25 mg PO 1x/day for Renin-Angiotensin System Blockade Nephrology Dr. Chang 5). Morbid Obesity 6). Nicotine Addiction Nicotine Patch 21 mg TD 1x/day Spiriva 2 PO INH 1 capsule via handihaler device 1x/day 7). Moderate Pulmonary HTN Pulmonology Dr. Jacobo: patient will need sleep study through the [facility] and then possible CPAP at night 8). Hypokalemia KCl 40 mEQ x 1 dose Spiranolactone started 07/25/17 9). Prophylaxis Pepcid 20 mg PO 2x/day Heparin 5,000 Units SC Q8H Fluticasone 2 sprays each nostril 1x/day Promethazine DM 5 ml Q6H PRN Cough Patient was updated everyday concerning his heart failure status and the severity of the condition requiring medication compliance, smoking cessation, and follow up with the [facility] for coordination of his care as well weight loss options. Cuco Brantley D.O. Discharge Exam - Head Exam Head Exam: NORMAL INSPECTION Discharge Plan - Follow Up Plan Condition: STABLE Disposition: HOME/ ROUTINE
--- NOTE | 2017-07-25 19:51 | CP.PCM.PN ---
Subjective - Date & Time of Evaluation Date of Evaluation: 07/25/17 Time of Evaluation: 17:15 - Subjective Subjective: Patient reports breathing improved; signing AMA to go back to work; Objective - Vital Signs/Intake and Output Vital Signs (last 24 hours): Temp Pulse Resp BP Pulse Ox 97.6 F 69 13 124/91 H 97 07/25/17 16:00 07/25/17 16:04 07/25/17 16:04 07/25/17 17:19 07/25/17 14:36 Intake and Output: 07/25/17 07/26/17 18:59 06:59 Intake Total 1623.5 Output Total 2100 Balance -476.5 - Labs Labs: 07/25/17 07:44 07/25/17 07:44 PT 13.3 SECONDS (9.7-12.2) H 07/23/17 08:53 INR 1.2 07/23/17 08:53 APTT 33 SECONDS (21-34) D 07/23/17 17:14 - Constitutional Appears: Non-toxic, No Acute Distress - Eye Exam Eye Exam: Normal appearance. absent: Scleral icterus - ENT Exam ENT Exam: Mucous Membranes Moist - Respiratory Exam Respiratory Exam: Clear to Ausculation Bilateral. absent: Respiratory Distress - Cardiovascular Exam Cardiovascular Exam: RRR, +S1, +S2 - GI/Abdominal Exam GI & Abdominal Exam: Soft. absent: Distended, Tenderness - Extremities Exam Additional comments: mild/moderate lower leg edema (much improved); - Neurological Exam Neurological Exam: Alert, Awake - Psychiatric Exam Psychiatric exam: Normal Affect, Normal Mood. absent: Agitated - Skin Skin Exam: Warm. absent: Cyanosis Assessment and Plan (1) TOM (acute kidney injury) Assessment & Plan: Cardiorenal etiology, improved with inotropic support and diuretics; patient now signing AMA; counseled against this; nevertheless, patient being told to take lasix 40 mg bid and aldactone 25 mg daily; should check weights daily; if weight increasing, needs to get in touch with us (gave our card with phone number); needs BMP in 1 week (losartan being held for this reason although needs to be on it for CHF and proteinuria); Status: Acute (2) Acute systolic (congestive) heart failure Assessment & Plan: Overall improved clinically but has very tenuous status and can again go into failure if diuretic regimen not adequate; agrees to f/u closely in clinic; Status: Acute (3) Hypertensive emergency Assessment & Plan: Improved; continue current meds; coreg increased to 25 mg bid; Status: Acute (4) CKD (chronic kidney disease) stage 3, GFR 30-59 ml/min Status: Acute
--- NOTE | 2017-07-25 22:53 | PCM.HF ---
Heart Failure Core Measure - Heart Failure Ejection Fraction: Less Than 40 % Left Ventricular Function to be assessed after discharge: Yes HERMINIA Inhibitor Prescribed: No Contraindication/Reason for not providing: low blood pressure Beta-Say Prescribed: Carvedilol Angiotensin II Receptor Say Prescribed: No Contraindication/Reason for not providing: low blood pressure AnticoagulationTherapy for Atrial Fibrillation/Atrialflutter: No Contraindication/Reason for not providing: not clinically indicated Aldosterone Antagonist Prescribed: Yes Hydralazine Nitrate Prescribed: Yes Implantable Cardioverter Defibrillator Therapy: No Contraindication/Reason for not providing: patient left AMA: recommend for AICD Cardiac Resynchronization Therapy Prescribed: No Contraindication/Reason for not providing: patient left AMA - Follow up Will be discharged to: Home Follow Up Date (must be within 7 days from discharge): 08/01/17 (patient left against medical advice; recommend to follow in the clinic) Follow Up Time: 09:00
== END 2017-07-25 17:43 | disposition home or self-care (01) | DRG 544 ==
LOC: C.ER 08:09 → C.9E 10:05 → C.6T 14:33 → C.9I 07-23 15:29
PROVIDERS: ADMIT Internal Medicine; ATTEND Family Medicine
PROC: 4A023N8 Measurement of Cardiac Sampling and Pressure, Bilateral, Percutaneous Approach (ICD-10-PCS; principal; 2017-07-23)
PROC: B216YZZ Fluoroscopy of Right and Left Heart using Other Contrast (ICD-10-PCS; 2017-07-23)
PROC: B211YZZ Fluoroscopy of Multiple Coronary Arteries using Other Contrast (ICD-10-PCS; 2017-07-23)
PROC: 05HM33Z Insertion of Infusion Device into Right Internal Jugular Vein, Percutaneous Approach (ICD-10-PCS; 2017-07-23)
DX: I13.0 Hypertensive heart and chronic kidney disease with heart failure and stage 1 through stage 4 chronic kidney disease, or unspecified chronic kidney disease (principal); N17.9 Acute kidney failure, unspecified; I31.3 Pericardial effusion (noninflammatory); I42.0 Dilated cardiomyopathy; N18.3 Chronic kidney disease, stage 3 (moderate); E66.01 Morbid (severe) obesity due to excess calories; E83.42 Hypomagnesemia; I50.43 Acute on chronic combined systolic (congestive) and diastolic (congestive) heart failure; E87.6 Hypokalemia; I16.1 Hypertensive emergency; Z68.41 Body mass index [BMI] 40.0-44.9, adult; F17.210 Nicotine dependence, cigarettes, uncomplicated; G47.33 Obstructive sleep apnea (adult) (pediatric); Z91.14 Patient's other noncompliance with medication regimen

== ENCOUNTER 2018-11-02 11:40 | Inpatient (IN) | payer OTHER | END 2018-11-07 11:33 | disposition home or self-care (01) | LOC: C.6T 11-04 → C.ER 11:40 → C.6T 13:55 ==